=== PATIENT | male | born 1960 | race Caucasian/White ===

== ENCOUNTER 2023-05-07 06:52 | Emergency (ER) | payer SELFPAY ==
[2023-05-07 07:05] VITALS: BP 119/77; PULSE 72; RESP 18; TEMP 36.1; O2SAT 97; BMI 27.4
[2023-05-07] MEDS: Lidocaine HCl 1 % MPF 5 ML VIAL INFILTRATI (09:44)
--- NOTE | 2023-05-07 10:27 | ED_ITS ---
HPI - Skin/Abscess/Foreign Bdy General Chief complaint: Skin/Abscess/Foreign Body Stated complaint: Abscess on the back of neck Time Seen by Provider: 05/07/23 09:17 Source: patient and RN notes reviewed Mode of arrival: ambulatory Limitations: no limitations History of Present Illness HPI narrative: This is a 62-year-old male, with a history of hypertension, who presents to the emergency department with complaints of swelling on the back of his neck for the last 3 days. Patient reports that it was small in nature and slightly painful. He attempted to drain it without any discharge expressed. He has a hi story of ingrown hairs in believes that this is what it is. Patient denies any fevers or chills. Denies taking any medications to treat his symptoms. He is not from this area, and visiting family. No other complaints or concerns at this time. MD complaint: abscess/boil Location: neck Severity: moderate Pain Consistency: constant Relieving factors: none Exacerbating factors: none Context: none Associated symptoms: denies other symptoms Treatments prior to arrival: attempted to drain pus at home Related Data Previous Rx's Medication Instructions Recorded doxycycline hyclate 100 mg capsule 100 mg PO BID #14 caps 05/07/23 Allergies Allergy/AdvReac Type Severity Reaction Status Date / Time codeine [CODEINE] Allergy Unknown ITCHINESS Verified 05/07/23 07:04 Review of Systems Review of Systems: Constitutional: No Weight loss, No Fever, No Chills ENT/Mouth: No Ear Pain, No Nasal Congestion, No Sinus Pain, No Hoarseness, No sore throat, No Rhinorrhea, No Swallowing Difficulty Cardiovascular: No Chest Pain, No SOB Respiratory: No Cough, No Sputum, No Wheezing Gastrointestinal: No Nausea, No Vomiting, No Diarrhea, No Constipation, No Abdominal pain Genitourinary: No Dysuria, No Urinary Frequency, No Hematuria, No Urinary Incontinence/retention, No Urgency, No Flank Pain Musculoskeletal: No joint pain, No Myalgias, No Joint Swelling Skin: No Skin Lesions, No rash Neuro: No Weakness, No Numbness, No Paresthesias PMFSH Social History Social History Advance Directives: No Physical Exam Vital Signs: Vital Signs: Last Vital Signs Temp 96.9 F 05/07/23 07:05 Pulse 72 05/07/23 07:05 Resp 18 05/07/23 07:05 BP 119/77 05/07/23 07:05 Pulse Ox 97 05/07/23 07:05 O2 Del Method Room Air 05/07/23 07:05 BMI result Body Mass Index 27.4 General: Awake, alert, and oriented X3. No acute distress. HEENT: Normal inspection CVS: Normal heart rate and rhythm. Pulses normal. Respiratory: No respiratory distress Skin: there is a 2 x 2 cm indurated, erythematous area of skin on the right posterior neck, with center area of fluctuance and white ulceration. Mild surrounding erythema and warmth Extremities: normal inspection Neuro: Oriented X 3. No motor deficit. No sensory deficit. Medications Administered Discontinued Medications Generic Name Dose Route Start Last Admin Trade Name Freq PRN Reason Stop Dose Admin Lidocaine HCl 5 ml 05/07/23 09:34 05/07/23 09:44 Lidocaine Hcl 1 % Mpf 5 Ml Vial INFILTRATI 05/07/23 09:35 5 ml ONCE ONE Administration Medical Decision Making Medical Decision Making MDM Narrative: 62-year-old male presenting today for evaluation left-sided neck abscess/ cyst that has been present for 3 days. Attempted drainage at home without any drainage expressed. No fevers or chills. On examination patient's vital signs are within normal limits. Patient unsure when his last tetanus vaccine was, will update today. I&D performed with minimal thick purulence drainage expressed. Patient's wound dressed with bacitracin and bandage, will discharge on doxycycline, advised to have complete the entire course. Also advised to apply warm compresses 4 to 5 times a day. Declines wanting prescription for Tylenol or ibuprofen. Given return precautions. Patient understands and agrees with plan. Differential Diagnosis Differential Diagnoses: The differential diagnosis associated with the presentation includes Abscess, cellulitis, cyst, carbuncle Procedures Abscess I/D Site: neck Side (if applicable): right Local Anesthetic: lidocaine 1% Amount of anesthesia used (mL): 3 Technique: incised with blade Sent for culture/gram staining?: No Irrigation: No Packing used?: none Discharge Plan Discharge Clinical Impression: Abscess, Cellulitis Patient Disposition: Home, Self-Care Instructions: Abscess (ED), Abscess Incision and Drainage (DC) Additional Instructions: Please take prescribed antibiotic as directed. Finish the entire course even if your feeling better. Apply warm compress to the area 4 to 5 times a day. Take ibuprofen or Tylenol as needed for pain. please follow-up with a physician which returned back from home. If any new or worsening symptoms occur please return for re-evaluation. Prescriptions: New doxycycline hyclate 100 mg capsule 100 mg PO BID Qty: 14 0RF
[2023-05-07] MEDS: Bacitracin Oint 0.9 GM PACKET 1 APPL TOPICAL (10:59)
[2023-05-07] MEDS: Diphth,Pertus(ACell),Tet Adult 0.5 ML SYRINGE IM (10:59)
== END 2023-05-07 11:06 | disposition home or self-care (01) ==
PROVIDERS: Emergency Provider Internal Medicine
DX: L03.221 Cellulitis of neck (principal); L02.11 Cutaneous abscess of neck
CPT/HCPCS: 10060; 90471; 90715; 99282; 99284

== ENCOUNTER 2023-10-24 09:10 | Outpatient (AMB) | payer MEDICARE, MEDICAID, SELFPAY ==
[2023-10-24 09:13] VITALS: BP 128/78; PULSE 87; TEMP 36.7; O2SAT 98; BMI 27.4
--- NOTE | 2023-10-24 09:13 | AM.OFFWIN_ITS ---
Intake Vital Signs 10/24/23 09:13 Height 5 ft 7 in Weight 175 lb BMI 27.4 BP 128/78 Blood Pressure Location Lt brachial Position Sitting Pulse 87 Pulse Source Pulse Oximeter Temp 98.0 F Temp Source Temporal Artery Scan Pulse Oximetry (%) 98 Intake Visit Reasons: [employer] Cough, Wheezing Intake Note: pt is here for c/o cough, wheezing, 1x month Patient Tobacco Use Status: Never used Tobacco Allergies codeine [CODEINE] Allergy (Unknown, Verified 10/24/23 09:23) ITCHINESS Medication List - Last Reconciled 10/24/23 by David Welsh MD lisinopril 25 mg PO DAILY HPI [employer] Cough, Wheezing HPI Details Patient presents for a sick visit. Reporting symptoms of sinus congestion, sore throat and difficulty swallowing. Low-grade fever. No family member is sick. No recent travel. Patient reports symptoms of malaise and fatigue. [facility] Patient Tobacco Use Status: Never used Tobacco Physical Exam Vital Signs: Last Vital Signs Temp 98.0 F 10/24/23 09:13 Pulse 87 10/24/23 09:13 BP 128/78 10/24/23 09:13 Pulse Ox 98 10/24/23 09:13 BMI result Body Mass Index 27.4 Const General: cooperative and healthy appearing Nutritional Appearance: well nourished Orientation/consciousness: patient oriented x3 Limitations: no limitations HEENT Head: Yes normal to inspection Eyes General: appearance normal, both eyes and all related structures Neck Neck: Yes normal visual inspection Chest Chest palpation & inspection: normal palpation of entire chest wall Resp Effort & Inspection: normal respiratory effort Neuro General: patient oriented x3 Assessment & Plan Assessment & Plan (1) Upper respiratory tract infection: Code(s): J06.9 - Acute upper respiratory infection, unspecified Plan: Antibiotics ordered. Increase fluid intake. Tylenol for aches and pains. If symptoms worsen, follow-up here for a recheck. Coding Level of Care Code Est Pt Level 3 (46592) Diagnoses Upper respiratory tract infection J06.9
== END 2023-10-24 09:56 | disposition home or self-care (01) ==
PROVIDERS: Visit Provider Internal Medicine
DX: J06.9 Acute upper respiratory infection, unspecified (principal)
CPT/HCPCS: 99213

== ENCOUNTER 2023-10-31 07:58 | Outpatient (AMB) | payer MEDICARE, MEDICAID, SELFPAY ==
[2023-10-31 08:06] VITALS: BP 128/80; PULSE 83; TEMP 36.4; O2SAT 98; BMI 27.1
--- NOTE | 2023-10-31 08:06 | MHC.OFFWIV ---
Intake Vital Signs 10/31/23 08:06 Height 5 ft 7 in Weight 173 lb BMI 27.1 BP 128/80 Blood Pressure Location Rt brachial Position Sitting Pulse 83 Pulse Source Pulse Oximeter Temp 97.6 F Temp Source Oral Pulse Oximetry (%) 98 Oxygen Delivery Method Room Air Intake Visit Reasons: EP, constipation Intake Note: Pt is here today c/o constipation x2 days now lower back pain Patient Tobacco Use Status: Never used Tobacco Allergies codeine [CODEINE] Allergy (Unknown, Verified 10/31/23 08:07) ITCHINESS Do you need a note to return to daycare/school/sports/work: No HPI HPI Comments History of Present Illness Details This is a 63-year-old male who presents to the office today for sick visit. Patient complaining of Bilateral low back pain x3 days. Patient denies any specific trauma or injury to the area. He states he was treated for acute bronchitis approximately 1 week ago. He states that he developed constipation after he finished the antibiotics. He then started to develop bilateral low back pain. He states he started taking some urvo-lvo-omxsmji laxative any has been having normal bowel movements with the back pain has persisted. He denies any red flag symptoms such as fever/chills, bowel/bladder incontinence/retention, saddle anesthesias, or numbness/ weakness / paresthesias of his extremities. He denies any urinary symptoms such as urinary frequency / urgency or hematuria. PFS Social History Patient Tobacco Use Status: Never used Tobacco Review of Systems Const All systems reviewed & are unremarkable except as noted in HPI and below Reports no additional complaints Eyes Reports no additional complaints ENT Reports no additional complaints Card Reports no additional complaints Resp Reports no additional complaints GI Reports no additional complaints Reports no additional complaints Musc Reports no additional complaints Skin/Breast Reports system reviewed and no additional complaints, except as documented Neuro Reports no additional complaints Psych Reports no additional complaints Endo Reports no additional complaints John/Lymph Reports no additional complaints Aller/Immun Reports no additional complaints Physical Exam Vital Signs: BMI result Body Mass Index 27.1 Const Other: Vital signs reviewed. Constitutional: Non-toxic appearing. No acute distress. Well-developed and well-nourished. HEENT: Normocephalic and atraumatic. Skin: Warm and dry. No rashes or lesions noted. Neck: Full and painless range of motion. No cervical lymphadenopathy. Cardio: Regular rate. No lower extremity edema. No JVD. Pulmonary: No respiratory distress. No accessory muscle usage. Gastrointestinal: Soft, nontender, and nondistended in all 4 quadrants. Normoactive bowel sounds in all 4 quadrants. Genitourinary: No CVA tenderness. Musculoskeletal: Tenderness to palpation of bilateral lumbar paraspinal musculature with palpable muscle spasms. No midline or spinous process tenderness to palpation. Negative straight leg raise bilaterally. Neuro: Alert and oriented x4. Cranial nerves 2-12 grossly intact. No focal deficits appreciated. Psych: Normal mood and affect. Assessment & Plan Assessment & Plan (1) Lumbar paraspinal muscle spasm: Code(s): M62.830 - Muscle spasm of back Plan: This is a 63-year-old male presenting to the office complaining of bilateral low back pain x3 days. Patient has no red flag symptoms and no midline /spinous process tenderness to palpation of physical examination. He has mild tenderness to palpation and palpable muscle spasms of the bilateral paraspinal musculature. History and physical most consistent with a lumbar paraspinal muscle spasm. Patient has been sent home on p.o. cyclobenzaprine 10 mg 3 times daily as needed for muscle spasms. Patient was advised to proceed directly to the emergency room if he were to develop any of the red flag symptoms as listed above. Patient verbalizes understanding and he is in agreement with plan. Medications: New cyclobenzaprine 10 mg PO TID PRN 30 tabs 0RF muscle spasm Coding Level of Care Code Est Pt Level 3 (82965) Diagnoses Lumbar paraspinal muscle spasm M62.830
== END 2023-10-31 08:21 | disposition home or self-care (01) ==
PROVIDERS: Visit Provider Physician Assistant Medical
DX: M62.830 Muscle spasm of back (principal)
CPT/HCPCS: 99213

== ENCOUNTER 2023-12-08 09:48 | Outpatient (AMB) | payer MEDICARE, MEDICAID, SELFPAY ==
[2023-12-08 09:54] VITALS: BP 132/94; PULSE 81; O2SAT 92; BMI 27.6
--- NOTE | 2023-12-08 09:54 | MHC.PC.OV ---
Vital Signs 12/08/23 09:54 Height 5 ft 7 in Weight 176 lb 2 oz BMI 27.6 BP 132/94 H Blood Pressure Location Rt brachial Position Sitting Pulse 81 Pulse Source Pulse Oximeter Pulse Oximetry (%) 92 Oxygen Delivery Method Room Air Intake Visit Reasons: EST care/ heart spec referral Allergies pollen extracts Allergy (Intermediate, Verified 12/08/23 10:05) Itching codeine [CODEINE] Allergy (Unknown, Verified 12/08/23 10:05) ITCHINESS Medication List - Last Reconciled 12/08/23 by MEY Montano aspirin (Adult Low Dose Aspirin) 81 mg PO DAILY atorvastatin 80 mg PO DAILY lisinopril 25 mg PO DAILY magnesium 250 mg PO DAILY metoprolol tartrate 25 mg PO DAILY nitroglycerin 0.4 mg sublingual Q5M PRN omeprazole 20 mg PO DAILY Tobacco use date assessed: 12/08/23 Fall risk assessment: No Falls in past year Last assessed Fall Risk: 12/08/23 Dental Screening Dental Screen Date: 12/08/23 Did you have a dental visit in the last 12 months?: No Did you have a dental problem in the last 6 months where you did not have access to dental care?: No Was dental information given to patient?: No HPI HPI Comments History of Present Illness Details Patient is a 63-year-old male here to [facility] care. He recently moved to this area from [place]. He has a past medical history significant for hyperlipidemia, hypertension, myocardial infarction, GERD, pre diabetes, carpal tunnel, lower back pain and history of CABG. He is due for colonoscopy. He is due for his 2nd shingles vaccine. He will receive the influenza vaccine in office today. He has a primary complaint of frequent muscle spasms, which tend to occur at night. He states that since he started taking magnesium they have diminished in frequency and intensity, but have not subsided. Denies starting any new medication or any injuries to the area of spasm. Will refer to GI for colonoscopy. Will refer to Podiatry. Patient is making his own appointment for his eye exam. Will receive in office EKG. Received in office influenza vaccine. Patient will also get echocardiogram in referral to Cardiology due to significant cardiac history. [facility] Medical History (Updated 12/08/23 @ 11:12 by MEY Montano) Myocardial infarction Nonalcoholic fatty liver Diverticulosis Surgical History (Updated 12/08/23 @ 10:12 by MEY Montano) S/P CABG (coronary artery bypass graft) Family History Mother Diabetes Social History Housing: House Patient Tobacco Use Status: Never used Tobacco e-Cigarette/Vaping Use: Never Used service: No Current occupational status: employed Current occupational exposures/hazards: No Cognitive needs: No Hearing needs: No Vision needs: No Questionnaire PHQ-9 Over the last 2 weeks, how often have you been bothered by any of the following problems? 1. Little interest or pleasure in doing things: several days 2. Feeling down, depressed, or hopeless: not at all 3. Trouble falling or staying asleep, or sleeping too much: several days 4. Feeling tired or having little energy: several days 5. Poor appetite or overeating: several days 6. Feeling bad about yourself - or that you are a failure or have let yourself or your family down: not at all 7. Trouble concentrating on things, such as reading the newspaper or watching television: several days 8. Moving or speaking so slowly that other people could have noticed. Or the opposite - being so fidgety or restless that you have been moving around a lot more than usual: several days 9. Thoughts that you would be better off or of hurting yourself in some way: not at all Total score: 6 Depression Screening Interpretation: Negative Depression Screening Done: Yes 21160 - PHQ-9 Billing: Yes Source: Developed by Drs. Satish Morales, Radha Jaquez, Bro Damian and colleagues, with an educational altaf from [employer]. Thrive Questionnaire Date Thrive assessed: 12/08/23 I am a: Patient Within the past 12 months, did the food you bought not last and you didn't have the money to get more?: Sometimes True Within the past 12 months, did you worry whether your food would run out before you got money to buy more?: Sometimes True Do you have trouble paying for medicines?: No Do you have trouble getting transportation to medical appointments?: No Do you have trouble paying your heating and electricity bill?: Yes Do you have trouble taking care of your child, family member or friend?: No Do you have trouble with day-to-day activities such as bathing, preparing meals, shopping, managing finances, etc.?: No Are you currently unemployed and looking for a job?: No Are you interested in more education?: No Please select the resources that you would like help with: None Currently or been in a relationship where the following occur: no concerns reported AUDIT C Alcohol Use Questionnaire (AUDIT-C) 1. How often do you have a drink containing alcohol?: Never 3. How often do you have six or more drinks on one occasion?: Never Total Score: 0 Score Reviewed/Action Taken: Yes IVONNE-7 AMB Questionnaire IVONNE-7 Date IVONNE - 7 assessed: 12/08/23 Feeling nervous, anxious, or on edge: 1 = Several days Not being able to stop or control worryin = Several days Worrying too much about different things: 0 = Not at all Trouble relaxin = Not at all Being so restless that it is hard to sit still: 0 = Not at all Becoming easily annoyed or irritable: 0 = Not at all Feeling afraid as if something awful might happen: 0 = Not at all Total IVONNE-7 score (0-4 normal; 5-9 mild; 10-14 moderate; 15-21 severe): 2 Source: Developed by Drs. Satish Morales, Radha Jaquez, Bro Damian and colleagues, with an educational altaf from [employer]. IVONNE-7 Assessment Billing IVONNE-7 Assessment Tool: IVONNE-7 Assessment 10655 Review of Systems Const Details: Constitutional : No Weight loss, No Fever, No Chills, No Fatigue, No Malaise ENT/Mouth : No sore throat, No Rhinorrhea. Admits diminished hearing bilaterally. Eyes: No Eye Pain, No Swelling, No Redness Cardiovascular : No Chest Pain, No SOB, No Dyspnea on Exertion, No Orthopnea, No Edema, No Palpitations Respiratory : No Cough, No Sputum, Admits slight Wheezing Gastrointestinal : No Nausea, No Vomiting, No Diarrhea, No Constipation, No abdominal Pain, No Hematochezia, No Melena Genitourinary : No Dysuria,Admits increased nocturnal Urinary Frequency, No Hematuria, Musculoskeletal : Admits cervical pain and right hip pain. Skin : No Skin Lesions, No rash Neuro : No Weakness, Admits carpel tunnel symptoms at night on left hand, No Dizziness, No Headache Psych : No Anxiety/Panic, No Depression Heme/Lymph: No Bruising, No Bleeding,No Lymphadenopathy Endocrine : No Polyuria, No Polydipsia All other systems reviewed and are negative Physical exam (Primary Care) Vital Signs: Last Vital Signs Pulse 81 12/08/23 09:54 BP 132/94 H 12/08/23 09:54 Pulse Ox 92 12/08/23 09:54 Oxygen Delivery Method Room Air 12/08/23 09:54 Care Plan Goal for BP management: Patient will take blood pressure measurements at home Next steps: Will evaluate blood pressure readings at next appointment in 3 months. Patient states he has white coat syndrome is a his readings tend to be higher in office than they are home BMI result Body Mass Index 27.6 Tobacco/Smoking Status: Tobacco use Status Tobacco use date assessed 12/08/23 12/08/23 09:57 Patient Tobacco Use Status Never used Tobacco 12/08/23 09:57 e-Cigarette/Vaping Use Never Used 12/08/23 09:57 Depression Screening Interpretation: Negative Currently or been in a relationship where the following occur: no concerns reported Const Other: Appearance: Alert.? Oriented X3.? No acute distress.? Head: Normocephalic, atraumatic, no step-offs or deformities Eyes: Pupils equal, round and reactive to light.?Red reflex present. ENT: Pharynx normal.?TM intact, pearly jo. Neck: Normal inspection.? Neck supple.? CVS: Normal heart rate and rhythm.? Pulses normal.? Respiratory: Slight wheeze bilateral upper lobes. ? Abdomen: Soft and nontender.? Skin: Skin warm and dry.? Normal skin color.? Normal skin turgor.? Extremities: No lower extremity edema.? No calf ttp. 5/5 strength to bilateral upper and lower extremities Back: No midline tenderness, no C-spine tenderness, full range of motion, no CVA tenderness bilaterally Neuro: Oriented X 3.? No motor deficit. Positive tineal sign. CN 2-12 intact Office Procedures EKG 76531-[id number], Complete Flu Questionnaire Does the patient have a severe egg allergy?: No Does the patient have severe life threatening allergies?: No Does the patient have a fever or illness today?: No Has the patient ever had Guillain-Saline Syndrome?: No Has the patient ever had any past reaction to a flu shot?: No Immunizations flu vacc [id number] 6mos up(PF) 60 mcg(15 mcgx4)/0.5 mL IM syringe Performing Provider: MEY Montano Performing Location: [facility] Administered by: BRIAN Burgess on 12/08/23 10:52 Dose Route Admin Location Dispensed Lot Number Expiration Date NDC Qm Consultant 0.5 mL IM Left Deltoid 0.5 mL [id number] 05/30/24 [id number] [employer] VIS Given Date VIS Provided VIS Publication Date 12/08/23 Single Vaccine 21 Eligibility Eligibility Date Funding Source Not VF Eligible 12/08/23 Private Results Reviewed Results Reviewed: Will call patient with results Assessment and Plan Assessment & Plan (1) Cervical pain (neck): Comment: Will obtain x-ray. Patient has history of cervical spine pain. Will intervene based on results. Code(s): M54.2 - Cervicalgia (2) Muscle spasm: Comment: Patient is currently taking 250 mg magnesium. Will draw labs. Will give cyclobenzaprine 5 mg to be taken p.r.n at bedtime. Code(s): M62.838 - Other muscle spasm (3) Right hip pain: Comment: Patient has chronic right hip pain that has progressed over the past 2 months. No history of imaging. Will obtain x-ray. Code(s): M25.551 - Pain in right hip (4) Wheeze: Comment: Patient has slight wheeze, was diagnosed with bronchitis x1 month prior will prescribe Xopenex due to heart health history. Code(s): R06.2 - Wheezing Plan: Take your medications as prescribed. If you were prescribed antibiotics today, it is important that you take your medication to their entirety, do not skip any doses, do not finish them early. Follow-up with your primary care provider this week. Return to the emergency department with new or worsening symptoms. Such as fevers, chills, chest pain, shortness of breath, nausea, vomiting, dizziness, headache, vision changes, lethargy In case of emergency call 911 (5) Hearing difficulty of both ears: Comment: Will refer to speech and hearing. Code(s): H91.93 - Unspecified hearing loss, bilateral Plan Follow-up in 3 months. Orders: Orders PSA,Total (Free>4and<10) Today Z12.5 - Encounter for screening for malignant neoplasm of prostate UA CC w/rflx Micro + Cult Today E86.0 - Dehydration TSH reflex Free T4 Today E03.9 - Hypothyroidism, unspecified XR hip RT min 2V Today M25.551 - Pain in right hip XR lumbar spine 2-3V Today M54.50 - Low back pain, unspecified Complete Blood Count Auto Diff Today Z13.0 - Encounter for screening for diseases of the blood and blood-forming organs and certain disorders involving the immune mechanism Comprehensive Met. Panel Today Z91.89 - Other specified personal risk factors, not elsewhere classified Lipid Panel Today E78.5 - Hyperlipidemia, unspecified Magnesium Today M62.838 - Other muscle spasm Vitamin D 25-OH (D2 and D3) Today Z13.21 - Encounter for screening for nutritional disorder AMB EKG-In Office Today I25.2 - Old myocardial infarction Influenza [id number] Immunization Today Z23 - Encounter for immunization CA echo transthoracic complete Today I25.2 - Old myocardial infarction Referrals Podiatry Referral R73.03 - Prediabetes Speech and Hearing Referral Z71.89 - Other specified counseling Cardiology Referral I25.2 - Old myocardial infarction Gastroenterology Referral Z12.11 - Encounter for screening for malignant neoplasm of colon Medications: New levalbuterol tartrate 45 mcg/actuation (Xopenex HFA) 2 puffs inhalation Q4-6H PRN 15 grams 0RF shortness of breath cyclobenzaprine 5 mg PO BEDTIME PRN 20 tabs 0RF muscle spasm Coding Level of Care Code Est Pt Level 3 (18050) Diagnoses Cervical pain (neck) M54.2 Muscle spasm M62.838 Right hip pain M25.551 Wheeze R06.2 Hearing difficulty of both ears H91.93 CPT Codes EKG - CPT: 67645-[id number], Complete ([id number]) Additional Codes IVONNE-7 Assessment Billing - IVONNE-7 Assessment Tool: IVONNE-7 Assessment 41304 ([id number]) Time Spent (min) 45
== END 2023-12-08 11:20 | disposition home or self-care (01) ==
PROVIDERS: Visit Provider Nurse Practitioner Primary Care
DX: M54.2 Cervicalgia (principal); M62.838 Other muscle spasm; M25.551 Pain in right hip; R06.2 Wheezing; H91.93 Unspecified hearing loss, bilateral; Z23 Encounter for immunization
CPT/HCPCS: 90471; 90686; 93000; 99215

== ENCOUNTER 2023-12-08 10:57 | Outpatient (REF) | payer MEDICARE, MEDICAID, SELFPAY ==
--- NOTE | ~2023-12-08 | XR_ITS ---
EXAMINATION: XR CERVICAL SPINE XR LUMBAR SPINE XR HIP, RIGHT CLINICAL INFORMATION: Low back pain, right hip pain, neck pain. COMPARISON: CT cervical spine of 02/19/2019. Radiographs lumbar spine and right hip of 12/31/2012 TECHNIQUE: 3 views of the cervical spine. 2 views right hip. 3 views of the lumbar spine. FINDINGS: CERVICAL SPINE: Advanced degenerative changes with loss of disc space height and hypertrophic change at C6-C7 and C7-T1. Redemonstration of moderate loss of height of the C6 and C7 vertebral bodies. LUMBAR SPINE: Facet arthritis in the lower lumbar spine. Mild degenerative changes on limited views of the bilateral hips. Advanced atherosclerotic aortoiliac calcifications. Mild multilevel lumbar spondylosis. Grade 1 anterolisthesis of L5 on S1. RIGHT HIP: Mild degenerative changes in the right hip with joint space narrowing and hypertrophic change. XR/XR cervical spine 3V IMPRESSION: 1. Advanced degenerative disc disease at C6-C7 and C7-T1. 2. Facet arthritis in the lower lumbar spine. 3. Mild multilevel lumbar spondylosis. 4. Grade 1 anterolisthesis of L5 on S1. 5. Mild degenerative changes in the right hip.
--- NOTE | ~2023-12-08 | XR_ITS ---
EXAMINATION: XR CERVICAL SPINE XR LUMBAR SPINE XR HIP, RIGHT CLINICAL INFORMATION: Low back pain, right hip pain, neck pain. COMPARISON: CT cervical spine of 02/19/2019. Radiographs lumbar spine and right hip of 12/31/2012 TECHNIQUE: 3 views of the cervical spine. 2 views right hip. 3 views of the lumbar spine. FINDINGS: CERVICAL SPINE: Advanced degenerative changes with loss of disc space height and hypertrophic change at C6-C7 and C7-T1. Redemonstration of moderate loss of height of the C6 and C7 vertebral bodies. LUMBAR SPINE: Facet arthritis in the lower lumbar spine. Mild degenerative changes on limited views of the bilateral hips. Advanced atherosclerotic aortoiliac calcifications. Mild multilevel lumbar spondylosis. Grade 1 anterolisthesis of L5 on S1. RIGHT HIP: Mild degenerative changes in the right hip with joint space narrowing and hypertrophic change. XR/XR hip RT min 2V IMPRESSION: 1. Advanced degenerative disc disease at C6-C7 and C7-T1. 2. Facet arthritis in the lower lumbar spine. 3. Mild multilevel lumbar spondylosis. 4. Grade 1 anterolisthesis of L5 on S1. 5. Mild degenerative changes in the right hip.
--- NOTE | ~2023-12-08 | XR_ITS ---
EXAMINATION: XR CERVICAL SPINE XR LUMBAR SPINE XR HIP, RIGHT CLINICAL INFORMATION: Low back pain, right hip pain, neck pain. COMPARISON: CT cervical spine of 02/19/2019. Radiographs lumbar spine and right hip of 12/31/2012 TECHNIQUE: 3 views of the cervical spine. 2 views right hip. 3 views of the lumbar spine. FINDINGS: CERVICAL SPINE: Advanced degenerative changes with loss of disc space height and hypertrophic change at C6-C7 and C7-T1. Redemonstration of moderate loss of height of the C6 and C7 vertebral bodies. LUMBAR SPINE: Facet arthritis in the lower lumbar spine. Mild degenerative changes on limited views of the bilateral hips. Advanced atherosclerotic aortoiliac calcifications. Mild multilevel lumbar spondylosis. Grade 1 anterolisthesis of L5 on S1. RIGHT HIP: Mild degenerative changes in the right hip with joint space narrowing and hypertrophic change. XR/XR lumbar spine 2-3V IMPRESSION: 1. Advanced degenerative disc disease at C6-C7 and C7-T1. 2. Facet arthritis in the lower lumbar spine. 3. Mild multilevel lumbar spondylosis. 4. Grade 1 anterolisthesis of L5 on S1. 5. Mild degenerative changes in the right hip.
[2023-12-08 14:43] LABS: Alanine Aminotransferase 22 U/L (0-40); Albumin Level 4.5 g/dL (3.5-5.0); Alkaline Phosphatase 66 U/L (39-117); Anion Gap 12 (12-20); Aspartate Amino Transferase 18 U/L (5-37); Bilirubin Total 0.8 mg/dL (0.0-1.0); Blood Urea Nitrogen 15 mg/dL (9-16); Calcium 9.7 mg/dL (8.4-10.2); Carbon Dioxide 25 mmol/L (22-29); Chloride 105 mmol/L (96-108); Cholesterol 153 mg/dL (<200); Estimated Glomerular Filt Rate > 60; Glucose Random 110 mg/dL (60-115); HDL Cholesterol 42 mg/dL (>40); LDL Cholesterol Calculated 82 mg/dL (<100); Sodium 138 mmol/L (135-145); Total Protein 7.4 g/dL (6.5-8.0); Triglycerides 147 mg/dL (<150)
[2023-12-08 15:12] LABS: TSH reflex Free T4 1.85 uIU/mL (0.32-4.0)
[2023-12-14 15:58] LABS: Vitamin D 25-OH, D2 11 ng/mL; Vitamin D 25-OH, D3 16 ng/mL; Vitamin D 25-OH, Total 27 ng/mL (30-100)
== END 2023-12-08 10:58 | disposition home or self-care (01) ==
LOC: HO.HMGCX 10:57
PROVIDERS: PCP Nurse Practitioner Primary Care; Visit Provider Nurse Practitioner Primary Care
DX: M54.2 Cervicalgia (principal); M25.551 Pain in right hip; E78.5 Hyperlipidemia, unspecified; M62.838 Other muscle spasm; Z12.5 Encounter for screening for malignant neoplasm of prostate; E03.9 Hypothyroidism, unspecified; E86.0 Dehydration; Z13.21 Encounter for screening for nutritional disorder; M54.50 Low back pain, unspecified; Z91.89 Other specified personal risk factors, not elsewhere classified; Z13.0 Encounter for screening for diseases of the blood and blood-forming organs and certain disorders involving the immune mechanism
CPT/HCPCS: 36415; 72040; 72100; 73502; 80053; 80061; 81003; 82306; 83735; 84153; 84443; 85025

== ENCOUNTER → 2023-12-29 13:50 | Outpatient (REF) | payer MEDICARE, SELFPAY ==
--- NOTE | 2023-12-29 13:53 | CA_ITS ---
Transthoracic Echocardiogram Patient (Last, First, Middle): Satish Lamb W Gender: Male Date of : 1960 Age: 63 Procedure Date: 12/29/2023 Procedure Type: Transthoracic Echocardiogram Location: OP Height: 170.18 cm Weight: 79.38 kg BSA: 1.91 m2 Heart Rate: bpm BP: 119 / 78 mmHg Lead Manufacturing Technician: CHUY Referring MD: Sam MATHIAS Lamina Searcher: Wyatt Parker MD Symptoms: I25.2 - Old myocardial infarction Study Quality: Adequate with contrast ECG Rhythm: Sinus Conclusions: - 1. Normal LV ejection fraction 55-60% with mild LVH with underlying regional wall motion abnormality consistent with coronary artery disease 2. Normal cardiac valvular Doppler 3. Upper limits of normal ascending aortic size 4. No gross pericardial effusion Findings Left Ventricle Normal left ventricular size, thickness, and systolic function. The visually estimated ejection fraction is between 55-60%. Spectral Doppler is indicative of an impaired relaxation filling pattern. Wall Motion Rest Echo Findings The apex, apical inferior, mid inferior, and mid anteroseptal segments are hypokinetic. The basal inferior, apical septum, and mid inferoseptal segments are akinetic. All other scored wall segments showed normal motion. Right Ventricle Normal right ventricular cavity size and systolic function. Atria The left atrium is likely dilated. Interatrial shunt cannot be excluded. The right atrium is normal in size. Aortic Valve The aortic valve structure and function is likely normal. There is no aortic valve stenosis. There is no aortic valve regurgitation. Mitral Valve Normal mitral valve structure and function. There is trace mitral valve regurgitation. There is no mitral valve stenosis. Pulmonic Valve The pulmonic valve is likely normal. Tricuspid Valve Likely normal tricuspid valve structure and function. There is trace tricuspid valve regurgitation. Tricuspid regurgitation envelope is inadequate for calculation of right ventricular systolic pressure. Normal right atrial pressure. Great Vessels The pulmonary artery was not well visualized. Venous The inferior vena cava is normal in size and collapses greater than 50% with inspiration. Pericardium/Pleural There is no evidence of pericardial effusion. Prior Study Comparison No prior study available for comparison. delay in reporting due to technical issues Measurements 2D Linear Measurements IVSd: 1.26 0.6-0.9/0.6-1.0 cm LVIDd: 4.02 3.9-5.3/4.2-5.9 cm LVIDd Index: 2.10 2.4-3.2/2.2-3.1 cm/m2 LVIDs: 2.84 2.0-3.6 cm LVPWd: 1.08 0.7-1.1 cm LA Diam: 3.40 2.7-3.8/3.0-4.0 cm LAIDs Index: 1.78 1.5-2.3 cm/m2 LV Mass: 199.99 67-162/88-224 g LV Mass Index: 104.70 43-95/49-115 g/m2 LVOT Diam: 2.20 3.0+(-)1.3 cm 2D Systolic Function EF 4C: 57.90 >55% EF 2C: 57.70 >55% EF BiP: 57.80 >55% Mitral Valve MV Pk E: 0.92 MV PK A: 0.90 MV Decel Time: 161.00 E/A: 1.00 E'Lateral: 7.62 E'Medial: 8.92 E/E' Med: 10.30 E/E' Lat: 12.00 PHT: 47.00 MVA PHT: 4.68 Decel [place]: 5.71 Aortic Valve AoV Pk Mark: 1.23 AoV Mn Mark: 0.91 AoV VTI: 0.25 AoV Pk Grad: 6.00 Aov Mn Grad: 4.00 SHANAE Cont.VTI: 2.77 LVOT LVOT Pk Mark: 0.95 LVOT Mn Mark: 0.62 LVOT VTI: 0.18 LVOT Pk Grad: 4.00 LVOT Mn Grad: 2.00 LVOT Diam: 2.20 LVOT Area: 3.80 Diastolic Function MV Pk E: 0.92 MV Pk A: 0.90 E/A: 1.00 E'Medial: 8.92 E/E' Med: 10.30 E' Laterial: 7.62 E/E' Lat: 12.00 Right Ventricle TAPSE (mm): 19.40 TVS' Mark: 10.40 Tricuspid Valve RA Press: 8.00 Great Vessels Aorta Sinus of Valsalva: 3.56 2.0-3.[address] [place]: 3.03 1.7-3.4 cm Ao Asc: 3.50 2.1-3.4 cm Updated in Other Vendor System with Status of Final Wyatt Parker MD electronically signed on 01/01/2024 1:11:29 PM with status of Final
== END ==
LOC: HO.CARD 13:50
PROVIDERS: PCP Nurse Practitioner Primary Care; Visit Provider Nurse Practitioner Primary Care
DX: I25.2 Old myocardial infarction (principal)
CPT/HCPCS: 93306; Q9957

== ENCOUNTER → 2023-12-29 13:53 | Outpatient (BNV) | payer MEDICARE, MEDICAID, SELFPAY | PROVIDERS: PCP Nurse Practitioner Primary Care; Visit Provider Internal Medicine Cardiovascular Disease | DX: I25.2 Old myocardial infarction (principal) | CPT/HCPCS: 93306 ==

== ENCOUNTER 2024-01-20 18:38 | Outpatient (REF) | payer MEDICARE, MEDICAID, SELFPAY ==
--- NOTE | ~2024-01-20 | MR_ITS ---
EXAMINATION: MR CERVICAL SPINE WITHOUT CONTRAST MR LUMBAR SPINE WITHOUT CONTRAST CLINICAL INFORMATION: Low back pain COMPARISON: None TECHNIQUE: MRI of the cervical and lumbar spine was obtained using routine sequences without contrast. FINDINGS: CERVICAL SPINE: The craniocervical junction is intact. Nonspecific sclerosis within the odontoid process. Reversal of the lower cervical lordosis centered at C7-T1 where there is mild chronic height loss and anterior wedging of the C7 greater than T1 vertebral bodies. Slight anterolisthesis at C2-C3, C4-C5 and C5-C6. No suspicious osseous lesion. Multilevel disc desiccation with severe C7-T1 and moderate C6-C7 disc height loss. Type I greater than type II Modic endplate change at C7-T1 and mild type I Modic endplate change at C6-C7 and C2-C3. There are multilevel degenerative changes with level by level detail as follows: C2-C3: Paracentral disc protrusion, bilateral uncovertebral spurring, and bilateral facet arthrosis, more pronounced and severe on the right with associated joint effusion and degenerative marrow edema. No spinal canal or left neural foraminal stenosis, noting an aberrant vascular loop of the left V2 vertebral artery coursing within the left neural foramen. Moderate to severe right neural foraminal stenosis. C3-C4: Disc osteophyte complex with bilateral uncovertebral joint hypertrophy and advanced hypertrophic bilateral facet arthrosis. No spinal canal stenosis. Mild to moderate right without left neural foraminal stenosis. C4-C5: Right greater than left uncovertebral spurring and bilateral facet arthrosis, more pronounced and severe on the right. No spinal canal stenosis. Severe right without left neural foraminal stenosis. C5-C6: Posterior disc uncovering, bilateral uncovertebral joint hypertrophy and bilateral facet arthrosis, more pronounced and severe on the right. No spinal canal stenosis. Severe right and moderate to severe left neural foraminal stenosis. C6-C7: Disc osteophyte complex with bilateral uncovertebral joint hypertrophy and bilateral facet arthrosis, more pronounced and severe on the right. No spinal canal stenosis. Moderate to severe left and mild to moderate right neural foraminal stenosis. C7-T1: Disc osteophyte complex with superimposed central disc extrusion with both superior and inferior migration, bilateral uncovertebral joint hypertrophy and bilateral facet arthrosis. Mild spinal canal stenosis, severe left and moderate right neural foraminal stenosis. The cervical spinal cord is normal in signal and morphology. No epidural fluid collection, mass, or hematoma. No significant abnormalities of the paraspinal musculature. The flow voids of the major cervical vessels are maintained. Retropharyngeal course of the mid right cervical ICA. The visualized intracranial structures are normal. LUMBAR SPINE: Slight lower lumbar levocurvature with preserved sagittal alignment. Slight grade 1 anterolisthesis at L5-S1. Minimal chronic height loss and anterior wedging of the L1 vertebral body. No suspicious osseous lesion. A couple shallow endplate Schmorl's nodes are seen. Multilevel disc desiccation preserved disc height. Level by level detail as follows: L1-L2: No spinal canal or neural foraminal stenosis. L2-L3: Shallow annular disc bulge. No spinal canal stenosis. Minimal bilateral neural foraminal encroachment. L3-L4: Annular disc bulge and mild bilateral facet arthrosis. No spinal canal stenosis. Minimal bilateral neural foraminal encroachment. L4-L5: Annular disc bulge and moderate bilateral facet arthrosis. Annular disc bulge, moderate left and mild right facet arthrosis. No spinal canal stenosis. Mild left greater than right neural foraminal narrowing. L5-S1: Posterior disc uncovering/pseudodisc bulge and advanced bilateral facet arthrosis. No spinal canal stenosis. Mild to moderate bilateral neural foraminal stenosis. The conus medullaris terminates at the level of L1. The distal spinal cord is normal in appearance. No epidural fluid collection, hematoma, or mass. There is mild fatty infiltration of the paraspinal musculature. There is a 3.5 cm cystic lesion in the right lower hemiabdomen along the ventral margin of the right iliac vessels and anteromedial to the right psoas muscle with a thin rim of peripheral soft tissue, of uncertain etiology and may reflect a lymphangioma or lymphocele and can be correlated for history of prior surgery. Recommend further characterization with CT and potentially a contrast-enhanced MRI. The abdominal aorta is of normal contour and caliber. MR/MR cervical spine wo con IMPRESSION: 1. Cervical spondylosis without significant spinal canal stenosis at any level. A central disc extrusion at C7-T1 contributes to mild spinal canal stenosis. Multilevel severe neural foraminal stenosis. There is an aberrant vascular loop of the left V2 vertebral artery coursing within the left C2-C3 neural foramen. 2. Mild lumbar spondylosis without significant spinal canal stenosis or high-grade neural foraminal stenosis. At L5-S1, there is advanced bilateral facet arthrosis with grade 1 anterolisthesis and mild to moderate bilateral neural foraminal stenosis. 3. 3.5 cm cystic lesion in the right lower hemiabdomen along the ventral margin of the right iliac vessels and anteromedial to the right psoas muscle with a thin rim of peripheral soft tissue, of uncertain etiology. This may reflect a lymphangioma or lymphocele and can be correlated for history of prior surgery. Recommend further characterization with CT and potentially a contrast-enhanced MRI.
== END 2024-01-20 18:39 | disposition home or self-care (01) ==
LOC: HO.MRI 18:38
PROVIDERS: PCP Nurse Practitioner Primary Care; Visit Provider Nurse Practitioner Primary Care
DX: M54.50 Low back pain, unspecified (principal); M54.2 Cervicalgia
CPT/HCPCS: 72141; 72148

== ENCOUNTER 2024-01-23 09:31 | Outpatient (AMB) | payer MEDICARE, MEDICAID, SELFPAY ==
--- NOTE | 2024-01-23 09:31 | MHC.OFFWIV ---
Intake Vital Signs 01/23/24 09:32 Height 5 ft 7 in Weight 176 lb BMI 27.6 BP 126/90 H Blood Pressure Location Lt brachial Position Sitting Pulse 78 Pulse Source Pulse Oximeter Temp 97.6 F Temp Source Temporal Artery Scan Pulse Oximetry (%) 96 Oxygen Delivery Method Room Air Intake Visit Reasons: EP sinus infection/pain Intake Note: pt is here today for sinus infection pain started 2 weeks ago Patient Tobacco Use Status: Never used Tobacco Allergies pollen extracts Allergy (Intermediate, Verified 01/23/24 09:32) Itching codeine [CODEINE] Allergy (Unknown, Verified 01/23/24 09:32) ITCHINESS Do you need a note to return to daycare/school/sports/work: No HPI HPI Comments History of Present Illness Details 63 y/o male patient who presents to walk in clinic with c/o sinus pressure x 2 weeks. [facility] [place] Medical History (Updated 12/08/23 @ 11:12 by MEY Montano) Myocardial infarction Nonalcoholic fatty liver Diverticulosis Surgical History (Updated 12/08/23 @ 10:12 by MEY Montano) S/P CABG (coronary artery bypass graft) Family History Mother Diabetes Social History Housing: House Patient Tobacco Use Status: Never used Tobacco e-Cigarette/Vaping Use: Never Used service: No Current occupational status: employed Current occupational exposures/hazards: No Cognitive needs: No Hearing needs: No Vision needs: No Review of Systems Const All systems reviewed & are unremarkable except as noted in HPI and below Physical Exam Vital Signs: Last Vital Signs Temp 97.6 F 01/23/24 09:32 Pulse 78 01/23/24 09:32 BP 126/90 H 01/23/24 09:32 Pulse Ox 96 01/23/24 09:32 Oxygen Delivery Method Room Air 01/23/24 09:32 BMI result Body Mass Index 27.6 Const General: no acute distress HEENT Head: Yes normocephalic Ears: external ears normal General nose exam: Abnormal mucous membranes and turbinates present boggy and erythematous Face and sinus: Yes sinus tenderness Mouth: moist mucous membranes Throat: Yes posterior oropharynx normal and Yes uvula midline Resp Effort & Inspection: normal respiratory effort and able to speak in complete sentences Auscultation: clear to auscultation bilaterally Cardio Rate: regular rate Rhythm: regular rhythm Assessment & Plan Assessment & Plan (1) Acute rhinosinusitis: Code(s): J01.90 - Acute sinusitis, unspecified Plan: Rest - Warm fluids - Acetaminophen for pain relief Medications: New azithromycin 500 mg PO DAILY 3 days 3 tabs 0RF J01.90 - Acute sinusitis, unspecified Coding Level of Care Code Est Pt Level 3 (40153) Diagnoses Acute rhinosinusitis J01.90 Time Spent (min) 15
[2024-01-23 09:32] VITALS: BP 126/90; PULSE 78; TEMP 36.4; O2SAT 96; BMI 27.6
== END 2024-01-23 10:03 | disposition home or self-care (01) ==
PROVIDERS: PCP Nurse Practitioner Primary Care; Visit Provider Nurse Practitioner Family
DX: J01.90 Acute sinusitis, unspecified (principal)
CPT/HCPCS: 99213

== ENCOUNTER 2024-01-26 15:06 | Outpatient (AMB) | payer MEDICARE, MEDICAID, SELFPAY ==
[2024-01-26 15:17] VITALS: BP 103/69; PULSE 76; BMI 28.0
--- NOTE | 2024-01-26 15:17 | MHC.OFFVIS ---
Intake Vital Signs 01/26/24 15:17 Height 5 ft 7 in Weight 178 lb 9.191 oz BMI 28.0 BP 103/69 Blood Pressure Location Lt brachial Position Sitting Pulse 76 Intake Visit Reasons: Colonoscopy screening Intake Note: New patient presents in office today for colonoscopy screening. CC: Patient reports last colonoscopy was done at [facility] about 4- 5 years ago. Patient c/o on and off stomach pain, constipation, and acid reflux. He states he takes Omeprazole for GERD but it has not helped the last 2 days. Diorama Model Maker Required: No Accompanied by: Self / Same As Patient Allergies pollen extracts Allergy (Intermediate, Verified 01/26/24 15:22) Itching codeine [CODEINE] Allergy (Unknown, Verified 01/26/24 15:22) ITCHINESS HPI Colonoscopy screening HPI Details 63 year old male with past medical history of GERD, hyperlipidemia, hypertension, asthma, coronary artery bypass 4 years ago is here today for pre colonoscopy screening.? Patient was sent to us by his PCP.? Last colonoscopy was done over 5 years ago at [facility]. Patient was told to return in 3 years.? Patient denies any gastrointestinal symptoms in the past or at present.? However recently patient reports to have epigastric discomfort and dyspepsia. Recently was on antibiotics bronchitis and sinusitis. Patient has been on omeprazole for over 5 years. Denies any family history of gastrointestinal disease or cancer.? Denies history of difficulty with sedation or anesthesia in the past.? History of sleep apnea on CPAP.? Denies any history of cardiac, renal, pulmonary, or hepatic disease.?? No history of infectious? diseases like hepatitis A, B, C, HIV or tuberculosis.? Patient is on low-dose aspirin [facility] Medical History Myocardial infarction Nonalcoholic fatty liver Diverticulosis Surgical History S/P CABG (coronary artery bypass graft) Family History Mother Diabetes Social History Housing: House Patient Tobacco Use Status: Never used Tobacco e-Cigarette/Vaping Use: Never Used service: No Current occupational status: employed Current occupational exposures/hazards: No Cognitive needs: No Hearing needs: No Vision needs: No Review of Systems Const Denies weight gain and Denies weight loss ENT Reports no additional complaints, Denies dysphagia and Denies odynophagia Card Reports no additional complaints Resp Reports no additional complaints GI Denies abdominal pain, Denies belching, Denies melena, Denies bloating, Reports constipation, Denies dysphagia, Denies excessive flatus, Denies dyspepsia, Reports heartburn (Occasional), Denies diarrhea, Denies loose stools, Denies nausea, Denies odynophagia and Denies vomiting Reports no additional complaints Musc Reports no additional complaints Neuro Reports no additional complaints Psych Reports no additional complaints Endo Reports no additional complaints Physical Exam Vital Signs: Last Vital Signs Pulse 76 01/26/24 15:17 BP 103/69 01/26/24 15:17 BMI result Body Mass Index 28.0 Const General: healthy appearing, no acute distress and well developed Nutritional Appearance: well nourished Orientation/consciousness: patient oriented x3 Resp Effort & Inspection: normal respiratory effort, able to speak in complete sentences, no tracheal deviation and symmetric chest movement Auscultation: clear to auscultation bilaterally Cardio Rate: regular rate GI Inspection: Yes normal to inspection and No distended Palpation (GI): Soft to palpation, not firm, nontender and No hepatosplenomegaly present Auscultation: normal bowel sounds General: Yes no CVA tenderness Back/Spine/Pelvis Back: no CVA tenderness Skin General skin exam: elasticity normal, turgor normal and dry skin Neuro General: patient oriented x3 Psych Appearance: grossly normal Mental Status: mental status grossly normal Assessment & Plan Assessment & Plan (1) GERD (gastroesophageal reflux disease): Code(s): K21.9 - Gastro-esophageal reflux disease without esophagitis Qualifiers: Esophagitis presence: esophagitis presence not specified Qualified Code(s): K21.9 - Gastro-esophageal reflux disease without esophagitis (2) Screen for colon cancer: Code(s): Z12.11 - Encounter for screening for malignant neoplasm of colon Plan Patient denies any GI, cardiac or respiratory symptoms.? Denies any issues with anesthesia in the past.? Denies any history of sleep apnea.? No history infectious diseases in the past or present.? On low-dose aspirin, history of bypass 4 years ago. Has appointment with nutrition assistant in March. Will ask for risk stratification before sending him for procedure. Will book upper endoscopy as well. Patient has been experiencing epigastric discomfort and dyspepsia. Currently on omeprazole, has been on omeprazole for the last 5 years. History of upper endoscopy about 15 years ago. Recently was placed on antibiotic for bronchitis last month and few days ago for sinusitis.? No family or personal history of colon cancer.? Patient denies melena, hematochezia, unintentional weight loss or ribbon like stools.? Discussed at length the pre-procedure,? prep, diet & medications as well as what to expect prior, during and after the procedure.?? Stressed the importance of good bowel prep. ?Recommended the use of Vaseline or Calmoseptine OTC & baby wipes with bowel movements to promote comfort.? ?Patient verbalizes understanding and agrees to plan of care.? He was given the opportunity to ask questions and all questions answered.? We will see him after the procedure.? Medications: New bisacodyl (Dulcolax (bisacodyl)) 10 mg (2 x 5 mg) PO BEDTIME 180 tabs 4RF polyethylene glycol 3350 (Miralax) As directed by gastroenterology department at [facility] 238 grams PO ONCE 238 grams 0RF Z12.11 - Encounter for screening for malignant neoplasm of colon Coding Level of Care Code New Pt Level 3 (70319) Diagnoses Gastroesophageal reflux disease, unspecified whether esophagitis present K21.9 Esophagitis presence: esophagitis presence not specified Screen for colon cancer Z12.11 Time Spent (min) 40 Comment 30 minutes spent with patient and additional 10 minutes spent reviewing his records
== END 2024-01-26 16:08 | disposition home or self-care (01) ==
PROVIDERS: PCP Nurse Practitioner Primary Care; Visit Provider Nurse Practitioner Family
DX: K21.9 Gastro-esophageal reflux disease without esophagitis (principal); Z12.11 Encounter for screening for malignant neoplasm of colon
CPT/HCPCS: 99203

== ENCOUNTER → 2024-01-26 15:06 | Outpatient (BNVA) | payer MEDICARE, MEDICAID, SELFPAY | PROVIDERS: PCP Nurse Practitioner Primary Care; Visit Provider Nurse Practitioner Family | DX: Z12.11 Encounter for screening for malignant neoplasm of colon (principal); K21.9 Gastro-esophageal reflux disease without esophagitis | CPT/HCPCS: 99202 ==

== ENCOUNTER 2024-02-06 09:53 | Outpatient (AMB) | payer MEDICARE, MEDICAID, SELFPAY ==
--- NOTE | 2024-02-06 09:59 | HO.SPINEOV ---
Intake Intake Visit Reasons: Cervicalgia Intake Note: Mr. Lamb is here today c/o neck pain. Lan Support Specialist Required: No Allergies pollen extracts Allergy (Intermediate, Verified 01/26/24 15:22) Itching codeine [CODEINE] Allergy (Unknown, Verified 01/26/24 15:22) ITCHINESS Assessment & Plan Assessment & Plan (1) Cervical pain (neck): Comment: Will obtain x-ray. Patient has history of cervical spine pain. Will intervene based on results. Code(s): M54.2 - Cervicalgia Plan Dear Sam Thank you for referring Mr Lamb to our office today. He is a very nice 63-year-old gentleman who sustained a trauma in 2009 where he had 1500 lb of concrete fall on top of him. He had a numerous traumatic injuries at that time including compression fractures at C7-T1. He has had ongoing neck pain since that time and over the last 5 years or so it has been getting steadily worse. He underwent imaging showing severe disc collapse at C7-T1 and was sent today for referral. He has undergone physical therapy as well as 2 rounds of cortisone injections on his neck and neither of those things gave him any significant improvement. He takes Tylenol and Aleve as needed but they do not really seem to help. At this point the pain is a significant limits her in his quality of life. He will feel intense pain throughout the day for the better part of the day. He will also feel it when he is trying to sleep as well. He is getting very frustrated with the fact that he has been trying all these non surgical options for years and nothing seems to help, in fact that only getting worse. Does have a occasional radiculopathy down his left arm but it is really nothing that bothers him all that much. Does not describe any focal weakness or myelopathic symptoms. PMH: History of hypertension, history of coronary disease with a bypass surgery in 2019, when he was living in [place]. He tells me that 1 of the grafts failed but he has collaterals around it. He is followed by [facility] he reports. He recently had an echo that he told me went okay. He does occasionally get chest pain on the left side. History of hypertension, jaw surgery, GERD, rotator cuff surgery. Denies any strokes, pulmonary problems, kidney disease or bleeding disorders Social hx: He does not smoke, does not drink or use any recreational drugs Medications: Lisinopril, metoprolol, omeprazole, baby aspirin, Tylenol and NSAIDs as needed Allergies: Codeine gives him itching Physical exam: Awake alert oriented no acute distress, strength is full in bilateral upper extremities with normal reflexes. Imaging review: Cervical MRI done at [facility] in January 2024 shows what looks like healed compression fractures at C7-T1 with severe disc collapse, basically [id number] endplate contact here. There is some other milder degenerative changes throughout the cervical spine. I also reviewed a lumbar MRI for him because of some complaints of back pain, and I see what looks like a healed compression fracture at L5. There was some unusual under development of the right facet joint at L5-S1 which I am not sure if this is posttraumatic related or not, with what appears to be heavily overgrown facet to the left L5-S1 Impression: 63-year-old male presents for evaluation of chronic midline lower cervical neck pain in the setting of a trauma 20 years ago where he had a C7-T1 compression fracture that appears to now have caused significant disc collapse and I believe could be the source of his neck pain. The rest of the cervical spine really has just some milder degenerative disc disease. Because he is failed all the typical surgery conservative treatments and the patient is at the standpoint where his pain is significantly limiting his quality of life, usually Dr. Del Angel would offer patient like this anterior cervical fusion C7-T1. We did briefly discuss the procedure, risks, benefits, recovery etc.. I will review the patient's imaging and clinical scenario with Dr. Del Angel get back to the patient with a final plan. If he does agree that surgery is indicated, the patient would need a clearance from Cardiology. Thank you for allowing us to care for your patient. The total time spent with this visit with this patient was 45 minutes reviewing history, physical exam, cervical imaging review, and implementation of treatment plan or further diagnostic testing Can Del Angel MD,PhD [facility] Coding Level of Care Code New Pt Level 4 (22802) Diagnoses Cervical pain (neck) M54.2
== END 2024-02-06 10:25 | disposition home or self-care (01) ==
PROVIDERS: PCP Nurse Practitioner Primary Care; Referring Provider Nurse Practitioner Primary Care; Visit Provider Physician Assistant
DX: M54.2 Cervicalgia (principal)
CPT/HCPCS: 99204

== ENCOUNTER → 2024-02-06 09:53 | Outpatient (BNVA) | payer MEDICARE, MEDICAID, SELFPAY | PROVIDERS: PCP Nurse Practitioner Primary Care; Visit Provider Physician Assistant | DX: M54.2 Cervicalgia (principal) | CPT/HCPCS: 99202 ==

== ENCOUNTER 2024-03-03 12:55 | Outpatient (REF) | payer MEDICARE, OTHER, SELFPAY ==
[2024-03-03 13:59] LABS: Hematocrit 46.8 % (42.0-52.0); Mean Corpuscular HGB Conc 34.2 g/dl (31.0-36.0); Mean Corpuscular Hemoglobin 30.1 pg (27.0-33.0); Mean Platelet Volume 9.8 fL (9.4-12.4); Platelet Count 256 X10*3/uL (160-400); Red Blood Count 5.32 X10*6/uL (4.60-5.80); Red Cell Distribution Width 13.4 % (11.0-16.0); White Blood Count 9.2 X10*3/uL (4.8-10.8)
[2024-03-03 14:03] LABS: INTERNATIONAL NORM RATIO 0.9 (0.9-1.1); Prothrombin Time 11.5 SEC (11.1-13.3)
[2024-03-03 14:24] LABS: Anion Gap 11 (12-20); Blood Urea Nitrogen 14 mg/dL (9-16); Calcium 10.2 mg/dL (8.4-10.2); Carbon Dioxide 29 mmol/L (22-29); Chloride 106 mmol/L (96-108); Estimated Glomerular Filt Rate 60; Glucose Random 109 mg/dL (60-115); Potassium 4.5 mmol/L (3.3-5.1); Sodium 141 mmol/L (135-145)
== END 2024-03-03 12:56 | disposition home or self-care (01) ==
LOC: HO.LAB 12:55
PROVIDERS: PCP Nurse Practitioner Primary Care; Visit Provider Internal Medicine
DX: Z01.810 Encounter for preprocedural cardiovascular examination (principal); I25.10 Atherosclerotic heart disease of native coronary artery without angina pectoris; Z95.1 Presence of aortocoronary bypass graft; Z79.899 Other long term (current) drug therapy
CPT/HCPCS: 36415; 80048; 85027; 85610; 99202

== ENCOUNTER 2024-03-03 12:55 | Outpatient (AMB) | payer MEDICARE, MEDICAID, SELFPAY ==
[2024-03-03 12:59] VITALS: BP 120/76; PULSE 74; BMI 29.0
--- NOTE | 2024-03-03 12:59 | A.OFFVIS_ITS ---
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: No Allergies pollen extracts Allergy (Intermediate, Verified 01/26/24 15:22) Itching codeine [CODEINE] Allergy (Unknown, Verified 01/26/24 15:22) ITCHINESS Medication List - Last Reconciled 03/03/24 by Leonardo Agustin MD aspirin (Adult Low Dose Aspirin) 81 mg PO DAILY atorvastatin 80 mg PO DAILY azithromycin 500 mg PO DAILY 3 days bisacodyl (Dulcolax (bisacodyl)) 10 mg (2 x 5 mg) PO BEDTIME cholecalciferol (vitamin D3) 50 mcg PO DAILY cyclobenzaprine 5 mg PO BEDTIME PRN levalbuterol tartrate 45 mcg/actuation (Xopenex HFA) 2 puffs inhalation Q4-6H PRN lisinopril 25 mg PO DAILY magnesium 250 mg PO DAILY metoprolol succinate ER 25 mg PO DAILY nitroglycerin 0.4 mg sublingual Q5M PRN omeprazole 20 mg PO DAILY polyethylene glycol 3350 (Miralax) 238 grams PO ONCE HPI HPI Comments History of Present Illness Details Satish is here for consultation regarding coronary disease. Apparently, underwent coronary artery bypass surgery in [place] about 5 years ago. According to him, he has lived in numerous states including [place], [place], [place], [place], [place] over the last few years. Apparently has seen Cardiology in different places but he can not recall any information about that. 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 He states that over the last year or 2, he has been getting chest pains off and on. This can happen either at rest or during exertion. He is on numerous medications including appropriate medical regimen for vascular disease. Due to chronic neck pain, plan to go for surgery in the near future. Hence requesting preoperative evaluation. [facility], [facility] Medical History Atherosclerotic cardiovascular disease Myocardial infarction Nonalcoholic fatty liver Diverticulosis Surgical History (Updated 03/03/24 @ 13:12 by Leonardo Agustin MD) S/P CABG (coronary artery bypass graft) Family History Mother Diabetes Social History Housing: House Patient Tobacco Use Status: Never used Tobacco e-Cigarette/Vaping Use: Never Used service: No Current occupational status: employed Current occupational exposures/hazards: No Cognitive needs: No Hearing needs: No Vision needs: No Review of Systems Const Denies weakness Eyes Denies loss of vision ENT Denies dizziness Card Denies chest pain with activity, Denies syncope, Denies rapid heart rate, Denies pedal edema, Denies edema, Denies leg edema, Denies lightheadedness, Denies palpitations, Denies dyspnea, Denies dyspnea on exertion and Denies orthopnea Resp Denies cough, Denies dyspnea, Denies dyspnea on exertion and Denies wheezing GI Denies hematochezia and Denies change in stool character Denies hematuria, Denies dysuria and Denies urinary frequency Musc Denies abnormal gait, Denies muscle cramps, Denies muscle weakness, Denies numbness, Denies radiating pain into limb and Denies tingling Skin/Breast Denies nail changes and Denies rash Neuro Denies Abnormal speech present, Denies abnormal gait, Denies dizziness, Denies syncope, Denies loss of vision, Denies memory loss, Denies numbness, Denies tingling and Denies weakness Psych Denies depression and Denies memory loss Endo Denies palpitations Aller/Immun Denies wheezing Physical Exam Vital Signs: Last Vital Signs Pulse 74 03/03/24 12:59 BP 120/76 03/03/24 12:59 BMI result Body Mass Index 29.0 Const General: comfortable and no acute distress Orientation/consciousness: patient oriented x3 HEENT Other: Unremarkable Head: Yes normal to inspection Neck Neck: Yes normal visual inspection Chest Chest palpation & inspection: normal inspection of the chest Resp Auscultation: clear to auscultation bilaterally Cardio Palpation: normal PMI Heart sounds: S1 normal heart sound present, S2 normal heart sound present, no gallops, no murmurs and no rubs GI Palpation (GI): Soft to palpation Back/Spine/Pelvis Other: unremarkable Skin General skin exam: no rashes or lesions noted Neuro General: patient oriented x3 Speech: No Abnormal speech present Extrem General: Yes normal to inspection Psych Mental Status: mental status grossly normal Assessment & Plan Assessment & Plan (1) Status post aorto-coronary artery bypass graft: Code(s): Z95.1 - Presence of aortocoronary bypass graft (2) Atherosclerotic cardiovascular disease: Code(s): I25.10 - Atherosclerotic heart disease of [place] coronary artery without angina pectoris (3) Preoperative cardiovascular examination: Code(s): Z01.810 - Encounter for preprocedural cardiovascular examination Plan EKG from December shows sinus rhythm with left bundle-branch block pattern. No prior EKGs for comparison. Echocardiogram from December with LVEF of 55-60%. Oto, apical inferior, mid inferior, anteroseptal hypokinesis. Basal inferior, mid inferoseptal and apical septum were akinetic. Unfortunately, we do not have any prior EKGs or echocardiogram for comparison as patient not able to give information about prior cardiologiss. Considering his history of bypass surgery, chest pain over the last couple of years, above findings on EKG/echocardiogram, reasonable to perform diagnostic angiogram to assess graft patency. We discussed about this today and patient is very much in favor of the above. We will try to contact [place] for records bypass surgery. For medications, he seems to be on a reasonable regimen including aspirin, beta-blockers, high-dose statins. No changes with that for now. Follow-up after catheterization. Orders: Orders Complete Blood Count no Diff Today I25.10 - Atherosclerotic heart disease of [place] coronary artery without angina pectoris Prothrombin Time INR Today I25.10 - Atherosclerotic heart disease of [place] coronary artery without angina pectoris Cardiac Cath LT Diagnostic Today I25.10 - Atherosclerotic heart disease of [place] coronary artery without angina pectoris, Z95.1 - Presence of aortocoronary bypass graft Basic Metabolic Panel Today I25.10 - Atherosclerotic heart disease of [place] coronary artery without angina pectoris Coding Level of Care Code New Pt Level 4 (34069) Diagnoses Status post aorto-coronary artery bypass graft Z95.1 Atherosclerotic cardiovascular disease I25.10 Preoperative cardiovascular examination Z01.810
== END 2024-03-03 13:44 | disposition home or self-care (01) ==
PROVIDERS: PCP Nurse Practitioner Primary Care; Visit Provider Internal Medicine
DX: Z95.1 Presence of aortocoronary bypass graft (principal); I25.10 Atherosclerotic heart disease of native coronary artery without angina pectoris; Z01.810 Encounter for preprocedural cardiovascular examination
CPT/HCPCS: 99204

== ENCOUNTER 2024-03-10 10:51 | Outpatient (AMB) | payer MEDICARE, MEDICAID, SELFPAY ==
[2024-03-10 11:15] VITALS: BP 124/80; PULSE 61; O2SAT 99; BMI 27.8
--- NOTE | 2024-03-10 11:15 | A.OFFPC_ITS ---
Vital Signs 03/10/24 11:15 Height 5 ft 7 in Weight 177 lb 9 oz BMI 27.8 BP 124/80 Blood Pressure Location Rt brachial Position Sitting Pulse 61 Pulse Source Pulse Oximeter Pulse Oximetry (%) 99 Oxygen Delivery Method Room Air Intake Visit Reasons: 3 month fu Intake Note: Pt is here to follow up for lab results Allergies pollen extracts Allergy (Intermediate, Verified 03/10/24 11:43) Itching codeine [CODEINE] Allergy (Unknown, Verified 03/10/24 11:43) ITCHINESS Medication List - Last Reconciled 03/10/24 by MEY Montano aspirin (Adult Low Dose Aspirin) 81 mg PO DAILY atorvastatin 80 mg PO DAILY bisacodyl (Dulcolax (bisacodyl)) 10 mg (2 x 5 mg) PO BEDTIME cholecalciferol (vitamin D3) 50 mcg PO DAILY levalbuterol tartrate 45 mcg/actuation (Xopenex HFA) 2 puffs inhalation Q4-6H PRN lisinopril 25 mg PO DAILY magnesium 250 mg PO DAILY metoprolol succinate ER 25 mg PO DAILY nitroglycerin 0.4 mg sublingual Q5M PRN omeprazole 20 mg PO DAILY polyethylene glycol 3350 (Miralax) 238 grams PO ONCE Tobacco use date assessed: 03/10/24 Fall risk assessment: No Falls in past year Last assessed Fall Risk: 03/10/24 Dental Screening Dental Screen Date: 03/10/24 Did you have a dental visit in the last 12 months?: No Did you have a dental problem in the last 6 months where you did not have access to dental care?: No Was dental information given to patient?: No HPI HPI Comments History of Present Illness Details Patient is a 63-year-old male in today for labs follow-up. Patient has a past medical history significant for hyperlipidemia, GERD, arthrosclerotic heart disease, nonalcoholic fatty liver, chronic cervical neck pain. Patient has establish care with manager code, has scheduled cardiac catheterization to determine if patient is cleared for cervical neck procedure. Patient has chief complaint of nocturia that has gotten progressively worse over the past couple years. Patient states that he gets up at night 5-6 times in order to urinate, interrupts his ability to get deep sleep. PSA draw was within normal limits. Will refer patient to Urology. Patient also states that he has several skin tags and moles on his bilateral forearms. States some of them a new and some of them were old. Patient does have 1st degree family history of melanoma. [facility] Medical History Atherosclerotic cardiovascular disease Myocardial infarction Nonalcoholic fatty liver Diverticulosis Surgical History (Updated 03/03/24 @ 13:12 by Leonardo Agsutin MD) S/P CABG (coronary artery bypass graft) Family History (Updated 03/10/24 @ 11:51 by MEY Montano) Mother Diabetes Melanoma Social History Housing: House Patient Tobacco Use Status: Never used Tobacco e-Cigarette/Vaping Use: Never Used service: No Current occupational status: employed Current occupational exposures/hazards: No Cognitive needs: No Hearing needs: No Vision needs: No Questionnaire PHQ-9 Over the last 2 weeks, how often have you been bothered by any of the following problems? 64998 - PHQ-9 Billing: Patient declined-do not bill Source: Developed by Drs. Satish Morales, Bro Carrillo and colleagues, with an educational altaf from [employer]. Thrive Questionnaire Date Thrive assessed: 12/08/23 IVONNE-7 AMB Questionnaire IVONNE-7 Date IVONNE - 7 assessed: 12/08/23 Source: Developed by Drs. Satish Morales, Bro Carrillo and colleagues, with an educational altaf from [employer]. IVONNE-7 Assessment Billing IVONNE-7 Assessment Tool: pt declined-do not bill Review of Systems Const All systems reviewed & are unremarkable except as noted in HPI and below ENT Denies dizziness Card Denies chest pain and Denies dyspnea Resp Denies dyspnea Reports nocturia Skin/Breast Reports other (Newly developed mole) Neuro Denies dizziness Physical exam (Primary Care) Vital Signs: Last Vital Signs Pulse 61 03/10/24 11:15 BP 124/80 03/10/24 11:15 Pulse Ox 99 03/10/24 11:15 Oxygen Delivery Method Room Air 03/10/24 11:15 Care Plan Goal for BP management: Vital signs reviewed stable. BMI result Body Mass Index 27.8 Tobacco/Smoking Status: Tobacco use Status Tobacco use date assessed 03/10/24 03/10/24 11:20 Patient Tobacco Use Status Never used Tobacco 03/10/24 11:15 e-Cigarette/Vaping Use Never Used 03/10/24 11:15 Thrive Assessment: Date of Thrive Assessment Date Thrive assessed 12/08/23 03/10/24 11:15 Const General: cooperative and no acute distress Limitations: no limitations HENMT Head: Yes normal to inspection Resp Effort & Inspection: normal respiratory effort Auscultation: clear to auscultation bilaterally Cardio Rate: regular rate Rhythm: regular rhythm Heart sounds: S1 normal heart sound present and S2 normal heart sound present Skin Lesions: lesion noted (Scaly macule , slightly raise, abnormal borders on bilateral forearms. ) Results Reviewed Results Reviewed: Sodium 141 135-145 mmol/L Potassium 4.5 3.3-5.1 mmol/L CL 106 96-108 mmol/L CO2 29 22-29 mmol/L Gap 11 L 12-20 BUN 14 9-16 mg/dL Creat 1.22 0.5-1.4 mg/dL EGFR 60 NOTE: For -[place] individuals, multiply the result by 1.210. Chronic Kidney Disease: Estimated GFR < 60 mL/min/1.73m2 Severe Kidney Disease: Estimated GFR < 15 mL/min/1.73m2 Glucose, Random 109 60-115 mg/dL CA 10.2 8.4-10.2 mg/dL Assessment and Plan Assessment & Plan (1) Atypical nevi: Comment: Will refer patient to Dermatology. Code(s): D22.9 - Melanocytic nevi, unspecified (2) Nocturia: Comment: Will refer patient to Urology. Code(s): R35.1 - Nocturia Plan Patient has follow-up 1 month for preop clearance Coding Level of Care Code Est Pt Level 3 (20926) Diagnoses Atypical nevi D22.9 Nocturia R35.1 Time Spent (min) 26
== END 2024-03-10 11:55 | disposition home or self-care (01) ==
PROVIDERS: Visit Provider Nurse Practitioner Primary Care
DX: D22.9 Melanocytic nevi, unspecified (principal); R35.1 Nocturia
CPT/HCPCS: 99213

== ENCOUNTER → 2024-03-30 23:59 | Outpatient (BNV) | payer MEDICARE, MEDICAID, SELFPAY | PROVIDERS: PCP Nurse Practitioner Primary Care; Visit Provider Internal Medicine Cardiovascular Disease | DX: I20.89 Other forms of angina pectoris (principal) | CPT/HCPCS: 93458; 99152 ==

== ENCOUNTER 2024-04-05 13:32 | Outpatient (AMB) | payer MEDICARE, MEDICAID, SELFPAY ==
[2024-04-05 13:34] VITALS: BP 118/68; PULSE 77; O2SAT 98; BMI 27.7
--- NOTE | 2024-04-05 13:34 | A.OFFVIS_ITS ---
Vital Signs 04/05/24 13:34 Height 5 ft 7 in Weight 177 lb BMI 27.7 BP 118/68 Blood Pressure Location Lt brachial Position Sitting Pulse 77 Pulse Source Pulse Oximeter Pulse Oximetry (%) 98 Oxygen Delivery Method Room Air Intake Visit Reasons: 1 wk sp card cath/ clear for [place] /fusion Allergies pollen extracts Allergy (Intermediate, Verified 03/10/24 11:43) Itching codeine [CODEINE] Allergy (Unknown, Verified 03/10/24 11:43) ITCHINESS Medication List - Last Reconciled 04/05/24 by Leonardo Agustin MD aspirin (Adult Low Dose Aspirin) 81 mg PO DAILY atorvastatin 80 mg PO DAILY bisacodyl (Dulcolax (bisacodyl)) 10 mg (2 x 5 mg) PO BEDTIME cholecalciferol (vitamin D3) 50 mcg PO DAILY levalbuterol tartrate 45 mcg/actuation (Xopenex HFA) 2 puffs inhalation Q4-6H PRN lisinopril 20 mg PO DAILY magnesium 250 mg PO DAILY metoprolol succinate ER 25 mg PO DAILY nitroglycerin 0.4 mg sublingual Q5M PRN omeprazole 20 mg PO DAILY polyethylene glycol 3350 (Miralax) 238 grams PO ONCE HPI Comments Details: Satish returns for follow-up. Recently seen in consultation regarding preoperative stratification for neck surgery. To recall, patient apparently underwent coronary artery bypass surgery in [place] about 5 years ago. According to him, he has lived in numerous states including [place], [place], [place], [place], [place] over the last few years. Had seen Cardiology in different places but he can not recall any information about that. He has been getting chest pains off and on, sometimes with rest and sometimes with exertion. However, sounds very atypical as he states he gets pain for a couple of seconds just sitting in a chair. He has undergone a repeat catheterization to assess coronary anatomy and returns for follow-up. No new issues. Continues to have the neck pain. [facility] Medical History Atherosclerotic cardiovascular disease Myocardial infarction Nonalcoholic fatty liver Diverticulosis Surgical History S/P CABG (coronary artery bypass graft) Family History (Updated 03/10/24 @ 11:51 by MEY Montano) Mother Diabetes Melanoma Social History Housing: House Patient Tobacco Use Status: Never used Tobacco e-Cigarette/Vaping Use: Never Used service: No Current occupational status: employed Current occupational exposures/hazards: No Cognitive needs: No Hearing needs: No Vision needs: No Review of Systems Const Denies weakness ENT Denies dizziness Card Denies chest pain, Denies chest pain with activity, Denies syncope, Denies rapid heart rate, Denies pedal edema, Denies edema, Denies leg edema, Denies lightheadedness, Denies palpitations, Denies dyspnea, Denies dyspnea on exertion and Denies orthopnea Resp Denies cough, Denies dyspnea and Denies dyspnea on exertion GI Denies hematochezia and Denies change in stool character Musc Denies abnormal gait, Denies muscle cramps, Denies muscle weakness, Denies numbness, Denies radiating pain into limb and Denies tingling Neuro Denies abnormal gait, Denies dizziness, Denies syncope, Denies numbness, Denies tingling and Denies weakness Endo Denies palpitations Physical Exam Vital Signs: Last Vital Signs Pulse 77 04/05/24 13:34 BP 118/68 04/05/24 13:34 Pulse Ox 98 04/05/24 13:34 Oxygen Delivery Method Room Air 04/05/24 13:34 BMI result Body Mass Index 27.7 Const General: comfortable and no acute distress Orientation/consciousness: patient oriented x3 HEENT Other: Unremarkable Head: Yes normal to inspection Neck Neck: Yes normal visual inspection Chest Chest palpation & inspection: normal inspection of the chest Resp Auscultation: clear to auscultation bilaterally Cardio Palpation: normal PMI Heart sounds: S1 normal heart sound present, S2 normal heart sound present, no gallops, no murmurs and no rubs GI Palpation (GI): Soft to palpation Back/Spine/Pelvis Other: unremarkable Skin General skin exam: no rashes or lesions noted Neuro General: patient oriented x3 Extrem General: Yes normal to inspection Psych Mental Status: mental status grossly normal Assessment & Plan Assessment & Plan (1) Status post aorto-coronary artery bypass graft: Code(s): Z95.1 - Presence of aortocoronary bypass graft Category: Surgical (2) Atherosclerotic cardiovascular disease: Code(s): I25.10 - Atherosclerotic heart disease of [place] coronary artery without angina pectoris Category: Medical (3) Preoperative cardiovascular examination: Code(s): Z01.810 - Encounter for preprocedural cardiovascular examination Category: Medical Plan Cardiac studies reviewed. EKG from December shows sinus rhythm with left bundle-branch block pattern. No prior EKGs for comparison. Echocardiogram from December with LVEF of 55-60%. [place], apical inferior, mid inferior, anteroseptal hypokinesis. Basal inferior, mid inferoseptal and apical septum were akinetic. Unfortunately, we do not have any prior EKGs or echocardiogram for comparison as patient not able to give information about prior cardiologists. We proceeded with a diagnostic catheterization. Mid LAD has 90% stenosis with significant tortuosity. Otherwise, left main/circumflex normal and RCA has minimal irregularities. Recommended medical management. Per Interventional comments, intermediate to high risk for perioperative cardiovascular complications with neck surgery. We discussed about this in great detail. Perioperative complications including myocardial infarction discussed and he understands. He states that he may just choose not to have neck surgery. Discussed with who recommended medical management only as the vessel is very small in size. Continue aspirin, beta-blockers, high-dose statins. Will follow-up in 3 months. Coding Level of Care Code Est Pt Level 4 (19996) Diagnoses Status post aorto-coronary artery bypass graft Z95.1 Atherosclerotic cardiovascular disease I25.10 Preoperative cardiovascular examination Z01.810
== END 2024-04-05 13:58 | disposition home or self-care (01) ==
PROVIDERS: PCP Nurse Practitioner Primary Care; Visit Provider Internal Medicine
DX: Z95.1 Presence of aortocoronary bypass graft (principal); I25.10 Atherosclerotic heart disease of native coronary artery without angina pectoris; Z01.810 Encounter for preprocedural cardiovascular examination
CPT/HCPCS: 99214

== ENCOUNTER → 2024-04-05 13:32 | Outpatient (BNVA) | payer MEDICARE, MEDICAID, SELFPAY | PROVIDERS: PCP Nurse Practitioner Primary Care; Visit Provider Internal Medicine | DX: Z01.810 Encounter for preprocedural cardiovascular examination (principal); I25.10 Atherosclerotic heart disease of native coronary artery without angina pectoris; Z95.1 Presence of aortocoronary bypass graft | CPT/HCPCS: 99212 ==

== ENCOUNTER 2024-04-07 12:55 | Outpatient (AMB) | payer MEDICARE, MEDICAID, SELFPAY ==
--- NOTE | 2024-04-07 13:17 | MHC.PC.OV ---
Vital Signs 04/07/24 13:28 Height 5 ft 7 in Weight 177 lb BMI 27.7 BP 122/78 Blood Pressure Location Lt brachial Position Sitting Pulse 75 Pulse Source Pulse Oximeter Pulse Oximetry (%) 95 Oxygen Delivery Method Room Air Intake Visit Reasons: Pre-op spine surgery(EKG,CMP) Intake Note: Pt is here today for pre op visit. Allergies pollen extracts Allergy (Intermediate, Verified 04/07/24 13:30) Itching codeine [CODEINE] Allergy (Unknown, Verified 04/07/24 13:30) ITCHINESS Tobacco use date assessed: 04/07/24 Fall risk assessment: No Falls in past year Last assessed Fall Risk: 04/07/24 Dental Screening Dental Screen Date: 03/10/24 HPI HPI Comments History of Present Illness Details Patient is a 63-year-old male in today for a preop visit. Patient has a past medical history significant for hyperlipidemia, GERD, arthrosclerotic heart disease, nonalcoholic fatty liver, chronic cervical neck pain. Patient has history of CABG. He recently had consultation with Cardiology and culture media laboratory assistant procedure to determine risk for EGD/colonoscopy and cervical spine surgery. Notes from net developer software engineer c states he is intermediate risk for EGD/colonoscopy and he is considered intermediate to high risk for cervical spine surgery. Will obtain in office EKG today as well as CMP. Patient has complaint of slight burning pain where incision for catheterization procedure was made. Patient states in previous catheterization he had similar feeling however the burning and pain is slightly more intense this time. Patient denies any tingling or numbness. States the pain is mostly when he changes position. Will order ultrasound of right groin [facility] Medical History Atherosclerotic cardiovascular disease Myocardial infarction Nonalcoholic fatty liver Diverticulosis Surgical History S/P CABG (coronary artery bypass graft) Family History Mother Diabetes Melanoma Social History Housing: House Patient Tobacco Use Status: Never used Tobacco e-Cigarette/Vaping Use: Never Used service: No Current occupational status: employed Current occupational exposures/hazards: No Cognitive needs: No Hearing needs: No Vision needs: No Questionnaire Thrive Questionnaire Date Thrive assessed: 12/08/23 IVONNE-7 AMB Questionnaire IVONNE-7 Date IVONNE - 7 assessed: 12/08/23 Source: Developed by Drs. Satish Morales, Radha Jaquez, Bro Damian and colleagues, with an educational altaf from [employer]. Review of Systems Const All systems reviewed & are unremarkable except as noted in HPI and below ENT Denies dizziness Card Denies chest pain and Denies dyspnea Resp Denies dyspnea Neuro Denies dizziness Physical exam (Primary Care) Vital Signs: Last Vital Signs Pulse 75 04/07/24 13:28 BP 122/78 04/07/24 13:28 Pulse Ox 95 04/07/24 13:28 Oxygen Delivery Method Room Air 04/07/24 13:28 Care Plan Goal for BP management: Patient's blood pressure stable. BMI result Body Mass Index 27.7 Tobacco/Smoking Status: Tobacco use Status Tobacco use date assessed 04/07/24 04/07/24 13:34 Patient Tobacco Use Status Never used Tobacco 04/07/24 13:17 e-Cigarette/Vaping Use Never Used 04/07/24 13:17 Thrive Assessment: Date of Thrive Assessment Date Thrive assessed 12/08/23 04/07/24 13:17 Const Other: Appearance: Alert.? Oriented X3.? No acute distress.? Head: Normocephalic, atraumatic, Neck: Normal inspection.? Neck supple.? CVS: Normal heart rate and rhythm.? Pulses normal.? EKG performed in office. Respiratory: No respiratory distress.? Breath sounds normal.? Neuro: Oriented X 3.? No motor deficit.? No sensory deficit. Assessment and Plan Assessment & Plan (1) Right groin pain: Comment: Had incision of catheter procedure. Will order ultrasound of groin Code(s): R10.31 - Right lower quadrant pain Plan: Take your medications as prescribed. If you were prescribed antibiotics today, it is important that you take your medication to their entirety, do not skip any doses, do not finish them early. Return to the emergency department with new or worsening symptoms. Such as fevers, chills, chest pain, shortness of breath, nausea, vomiting, dizziness, headache, vision changes, lethargy In case of emergency call 911 Orders: Orders Comprehensive Met. Panel Today Z01.818 - Encounter for other preprocedural examination AMB EKG-In Office Today Z13.6 - Encounter for screening for cardiovascular disorders US pelvic limited Today R10.31 - Right lower quadrant pain Coding Level of Care Code Est Pt Level 3 (87971) Diagnoses Right groin pain R10.31 Time Spent (min) 28
[2024-04-07 13:28] VITALS: BP 122/78; PULSE 75; O2SAT 95; BMI 27.7
== END 2024-04-07 14:29 | disposition home or self-care (01) ==
PROVIDERS: PCP Nurse Practitioner Primary Care; Visit Provider Nurse Practitioner Primary Care
DX: R10.31 Right lower quadrant pain (principal)
CPT/HCPCS: 99213

== ENCOUNTER 2024-04-07 14:00 | Outpatient (REF) | payer MEDICARE, MEDICAID, SELFPAY ==
[2024-04-07 19:10] LABS: Alanine Aminotransferase 20 U/L (0-40); Albumin Level 4.6 g/dL (3.5-5.0); Alkaline Phosphatase 76 U/L (39-117); Anion Gap 16 (12-20); Aspartate Amino Transferase 17 U/L (5-37); Bilirubin Total 0.5 mg/dL (0.0-1.0); Blood Urea Nitrogen 15 mg/dL (9-16); Carbon Dioxide 25 mmol/L (22-29); Chloride 104 mmol/L (96-108); Estimated Glomerular Filt Rate > 60; Glucose Random 107 mg/dL (60-115); Potassium 4.3 mmol/L (3.3-5.1); Sodium 141 mmol/L (135-145); Total Protein 7.6 g/dL (6.5-8.0)
== END 2024-04-07 14:01 | disposition home or self-care (01) ==
LOC: HO.HMGCLDS 14:00
PROVIDERS: PCP Nurse Practitioner Primary Care; Visit Provider Nurse Practitioner Primary Care
DX: Z01.818 Encounter for other preprocedural examination (principal)
CPT/HCPCS: 36415; 80053

== ENCOUNTER 2024-04-16 10:17 | Outpatient (REF) | payer MEDICARE, SELFPAY | END 2024-04-16 10:18 | disposition home or self-care (01) | LOC: HO.SH 10:17 | PROVIDERS: Visit Provider Nurse Practitioner Primary Care | DX: H91.93 Unspecified hearing loss, bilateral (principal); Z71.89 Other specified counseling | CPT/HCPCS: 92557 ==

== ENCOUNTER 2024-04-20 10:49 | Day surgery (SDC) | payer MEDICARE, SELFPAY ==
[2024-04-20 11:08] VITALS: BMI 27.1
[2024-04-20 11:18] VITALS: BP 122/83; PULSE 73; RESP 16; TEMP 36.4; O2SAT 95
[2024-04-20] MEDS: Lactated Ringers 1,000 ML 100 ML IVCONT (11:33)
--- NOTE | 2024-04-20 12:00 | HO.ANESPROP2 ---
Documented by User: Corin Tillman NP 04/19/24 12:07 HPI - Anesthesia Eval Consult details Narrative: 63yo M for Upper Endoscopy and Colonoscopy CAD with [place] 2009. CABG x 1 2016 d/t symptoms. No cardiovascular symptoms since then. Cath done 03/2024 as w/u for surgery. No CP/SOB with fishing, yardwork, stairs. Cardiac cleared at [facility] Active Problems Active Problems: All Active Problems Right groin pain (Acute) Nocturia (Acute) Atypical nevi (Acute) Preoperative cardiovascular examination (Acute) Status post aorto-coronary artery bypass graft (Acute) Hearing difficulty of both ears (Acute) Wheeze (Acute) Right hip pain (Acute) Muscle spasm (Acute) Cervical pain (neck) (Acute) Prediabetes (Acute) Hyperlipidemia (Acute) GERD (gastroesophageal reflux disease) (Acute) Atherosclerotic cardiovascular disease (Acute) Past Medical History Medical History Arthritis Back pain Concussion Habitual snoring Bronchitis On beta jalyn at home Elevated cholesterol HTN (hypertension) Hx of compression fracture of spine Atherosclerotic cardiovascular disease Myocardial infarction Nonalcoholic fatty liver Diverticulosis Family History Family History Mother Diabetes Melanoma Family history of problems with anesthesia: No Surgical History Surgical History (Updated 04/20/24 @ 11:05 by Sherry Velasquez RN) History of mandibular surgery History of esophagogastroduodenoscopy (EGD) H/O colonoscopy Hx of rotator cuff surgery Hx of cardiac catheterization S/P CABG (coronary artery bypass graft) History of Problems with Anesthesia: No Social History Social History Housing: House Are you a primary care team coordinator scheduler to a significant other at home: No Do you presently have visiting nurse or other home services: No Patient Tobacco Use Status: Never used Tobacco e-Cigarette/Vaping Use: Never Used Use of substances other than those prescribed or required for medical reasons: Yes Substance Use Frequency: Occasionally Are you DNR?: No Advance Directives: No Advance Directives Information Provided: Yes service: No Current occupational status: employed Current occupational exposures/hazards: No Cognitive needs: No Hearing needs: No Vision needs: No Meds Allergies Allergy/AdvReac Type Severity Reaction Status Date / Time pollen extracts Allergy Intermediate Itching Verified 04/20/24 11:06 codeine [CODEINE] Allergy Unknown ITCHINESS Verified 04/20/24 11:06 Home Medications ?Medication ?Instructions ?Recorded ?Confirmed ?Last Taken ?Type aspirin 81 mg tablet,delayed 81 mg PO BID 10/31/23 04/20/24 04/19/24 History release (Adult Low Dose Aspirin) atorvastatin 80 mg tablet 80 mg PO BEDTIME 10/31/23 04/20/24 Unknown History magnesium 250 mg tablet 250 mg PO DAILY 12/08/23 04/20/24 Unknown History omeprazole 20 mg capsule,delayed 20 mg PO DAILY 12/08/23 04/20/24 04/20/24 06:00 History release cholecalciferol (vitamin D3) 50 50 mcg PO DAILY 01/26/24 04/20/24 04/20/24 06:00 History mcg (2,000 unit) capsule lisinopril 20 mg tablet 20 mg PO DAILY 04/05/24 04/20/24 Unknown History Exam Height,Weight and Vital Signs: Height 5 ft 7 in Weight 79.832 kg Last Vital Signs Pulse 83 04/08/24 12:32 Resp 18 04/08/24 12:32 BP 138/92 H 04/08/24 12:32 Pulse Ox 97 04/08/24 12:32 O2 Del Method Room Air 04/08/24 12:32 Pertinent Lab Results Pertinent Lab Results: Laboratory Tests 03/03/24 04/07/24 13:49 14:12 WBC 9.2 Hgb 16.0 Hct 46.8 Plt Count 256 Sodium 141 Potassium 4.3 Chloride 104 Carbon Dioxide 25 BUN 15 Creatinine 1.14 Narrative Narrative: EKG 12/2023 sinus rhythm with left bundle-branch block pattern. No prior EKGs for comparison. ECHO 12/2023 Conclusions: - 1. Normal LV ejection fraction 55-60% with mild LVH with underlying regional wall motion abnormality consistent with coronary artery disease 2. Normal cardiac valvular Doppler 3. Upper limits of normal ascending aortic size 4. No gross pericardial effusion Airway Mallampati Class: II TM Dist: >3cm Neck ROM: Poor Partial: Upper (doesnt wear) Heart: RRR Lungs: CTAB Assessment and Plan Assessment Anesthesia Assessment: Chart Reviewed Final Anesthetic Review Family History of Problems with Anesthesia: No History of Problems with Anesthesia: No Documented by User: Sherry Lu DO 04/20/24 12:09 PMFSH Past Medical History Medical History Arthritis Back pain Concussion Habitual snoring Bronchitis On beta jalyn at home Elevated cholesterol HTN (hypertension) Hx of compression fracture of spine Atherosclerotic cardiovascular disease Myocardial infarction Nonalcoholic fatty liver Diverticulosis Family History Family History Mother Diabetes Melanoma Family history of problems with anesthesia: No Surgical History Surgical History (Updated 04/20/24 @ 11:05 by Sherry Velasquez RN) History of mandibular surgery History of esophagogastroduodenoscopy (EGD) H/O colonoscopy Hx of rotator cuff surgery Hx of cardiac catheterization S/P CABG (coronary artery bypass graft) History of Problems with Anesthesia: No Social History Social History Housing: House Are you a primary care team coordinator scheduler to a significant other at home: No Do you presently have visiting nurse or other home services: No Patient Tobacco Use Status: Never used Tobacco e-Cigarette/Vaping Use: Never Used Use of substances other than those prescribed or required for medical reasons: Yes Substance Use Frequency: Occasionally Are you DNR?: No Advance Directives: No Advance Directives Information Provided: Yes service: No Current occupational status: employed Current occupational exposures/hazards: No Cognitive needs: No Hearing needs: No Vision needs: No Meds Allergies Allergy/AdvReac Type Severity Reaction Status Date / Time pollen extracts Allergy Intermediate Itching Verified 04/20/24 11:06 codeine [CODEINE] Allergy Unknown ITCHINESS Verified 04/20/24 11:06 Home Medications ?Medication ?Instructions ?Recorded ?Confirmed ?Last Taken ?Type aspirin 81 mg tablet,delayed 81 mg PO BID 10/31/23 04/20/24 04/19/24 History release (Adult Low Dose Aspirin) atorvastatin 80 mg tablet 80 mg PO BEDTIME 10/31/23 04/20/24 Unknown History magnesium 250 mg tablet 250 mg PO DAILY 12/08/23 04/20/24 Unknown History omeprazole 20 mg capsule,delayed 20 mg PO DAILY 12/08/23 04/20/24 04/20/24 06:00 History release cholecalciferol (vitamin D3) 50 50 mcg PO DAILY 01/26/24 04/20/24 04/20/24 06:00 History mcg (2,000 unit) capsule lisinopril 20 mg tablet 20 mg PO DAILY 04/05/24 04/20/24 Unknown History Exam Exam Date and Time: April 20, 2024 1200 Airway Mallampati Class: II TM Dist: >3cm Neck ROM: Limited Partial: Upper Heart: S1S2 Assessment and Plan Assessment Anesthesia Assessment: Anesthesia Plan Discussed and Chart Reviewed Final Anesthetic Review Family History of Problems with Anesthesia: No History of Problems with Anesthesia: No NPO: Yes ASA Class: III Final Preanesthetic Review: No Changes in Pt Med Stat, Meds/Allgs Chart Reviewed, Consent Obtained/Reviewed and Anes Risks/Benef Reviewed Patient Risk: Intermediate Procedure Risk: Low Anesthetic Plan Anesthetic Plan: MAC: and Agree w/ Assess. and Plan Disposition: Standard PACU
--- NOTE | 2024-04-20 12:40 | MHC.SHP ---
Pre-Procedural Eval Section A - 24 Hr Update-Section A only Date of Service: 04/20/24 Section B - Complete if H&P > 30 days Chief Complaint: screening,gerd Details of Present Illness: Myocardial infarction Nonalcoholic fatty liver Diverticulosis Surgical History S/P CABG (coronary artery bypass graft) Family History Mother Diabetes Present Medications: see Short Stay Collaborative assessment Allergies: Allergies Allergy/AdvReac Type Severity Reaction Status Date / Time pollen extracts Allergy Intermediate Itching Verified 04/20/24 11:06 codeine [CODEINE] Allergy Unknown ITCHINESS Verified 04/20/24 11:06 Review of Systems Review of Systems Comment: Ten point ROS negative Exam Exam Comment: Gen appear: No acute distress HEENT: no icterus Chest: No overt resp distress Abd: soft, nontender, nondistended Psych: Stable affect, answering questions appropriately Neuro: A/Ox3 noted to move all extremities spontaneously Ext: no peripheral edema Plan Diagnosis/Plan: Unchanged I have reviewed the history and physical and performed a pertinent physical examination on my patient. No changes have occurred unless specified. Time Spent With Patient Time: Total time managing care of this patient today ____ minutes.
--- NOTE | 2024-04-20 13:32 | P.OPN-COLO_ITS ---
Colonoscopy Operative Note Operative Note Date of Service: 04/20/24 Narrative: Procedure: Upper endoscopy and colonoscopy Indication: GERD, personal hx of polyps Endoscopist: Jolanta Lisa MD Anesthesia Provider: Belen Stevens CRNA Anesthesia type: MAC Instrument: [id number] and [id number] EGD Procedure:?? The procedure, indications, preparation and potential complications were reviewed with the patient, who indicated understanding and gave written informed consent to proceed. Physical exam was performed. The endoscope was introduced through the mouth, and advanced to the 2nd part of the duodenum. The mucosa was carefully examined on slow withdrawal of the endoscope. The patient tolerated the procedure well. There were no immediate complications.? EGD Findings:? * Esophagus:? Normal esophageal mucosa was noted. There was a nonobstructing Schatzki's ring right above the GE junction. The Z-line was at 37 cm. There was a moderate-sized hiatal hernia with the diaphragmatic pinch at 40 cm. Cold forceps biopsies were taken from GE junction to rule out Barretts. * Stomach:? Erythema and erosions noted in the antrum. Retroflexion was performed in the cardia that showed Hill grade II hernia. Random cold forceps biopsies were taken to rule out H pylori. * Duodenum:? Duodenal mucosa was normal to the extent of visualisation. Colonoscopy Procedure:? The patient was then turned for the colonoscopy. A digital rectal exam was p erformed which was abnormal for external hemorrhoids.? A distal attachment cap was affixed to the tip of the scope and the colonoscope was then inserted through the anus and advanced through the colon and advanced to the cecum at 75 cm and terminal ileum.? Appendiceal orifice and ileocecal valve were identified. Mucosa was carefully examined under high definition white light as the instrument was slowly withdrawn in a retrograde panoramic fashion. Retroflexion was performed in rectum. The procedure was not difficult. The quality of the prep was BBPS: 3+2+2 = adequate Withdrawal time minutes Limitations: No limitations Findings: Mucosa: Normal colon and terminal ileum mucosa. Protruding lesions: * Medium internal hemorrhoids without stigmata of recent bleeding. Excavated lesions: * Moderate diverticulosis of left side of the colon was noted. Impression: 1. Normal esophagus (biopsy) 2. Hiatal hernia 3. Antral gastritis (biopsy) 4. Normal duodenum 5. Normal colon and terminal ileum mucosa 6. Diverticulosis 6. Internal and external hemorrhoids Recommendations:?? * Follow-up path results * Cont omeprazole 20 mg once daily * Repeat colonoscopy for asymptomatic colorectal cancer screening in 5 years due to pt reported history of advanced adenoma the last colonoscopy
[2024-04-20 13:36] VITALS: BP 124/80; PULSE 63; RESP 14; TEMP 36.6; O2SAT 98
[2024-04-20 13:51] VITALS: BP 109/76; PULSE 61; RESP 16; TEMP 36.6; O2SAT 97
== END 2024-04-20 14:32 | disposition home or self-care (01) ==
PROVIDERS: PCP Nurse Practitioner Primary Care; Visit Provider Internal Medicine
PROC: (CPT 43239; principal; 2024-04-20 12:30)
DX: Z12.11 Encounter for screening for malignant neoplasm of colon (principal); K57.30 Diverticulosis of large intestine without perforation or abscess without bleeding; K64.8 Other hemorrhoids; K64.4 Residual hemorrhoidal skin tags; K21.9 Gastro-esophageal reflux disease without esophagitis; K22.2 Esophageal obstruction; K29.70 Gastritis, unspecified, without bleeding; K44.9 Diaphragmatic hernia without obstruction or gangrene; I10 Essential (primary) hypertension; J45.909 Unspecified asthma, uncomplicated; I25.10 Atherosclerotic heart disease of native coronary artery without angina pectoris; I25.2 Old myocardial infarction; Z95.2 Presence of prosthetic heart valve; Z79.82 Long term (current) use of aspirin; Z79.899 Other long term (current) drug therapy; Z88.5 Allergy status to narcotic agent
CPT/HCPCS: 43239; G0121; 88305; 88313; 88342; J2250; J2704

== ENCOUNTER → 2024-04-20 10:49 | Outpatient (BNV) | payer MEDICARE, SELFPAY | PROVIDERS: PCP Nurse Practitioner Primary Care; Visit Provider Internal Medicine | DX: Z12.11 Encounter for screening for malignant neoplasm of colon (principal); Z86.010 Personal history of colon polyps; K57.30 Diverticulosis of large intestine without perforation or abscess without bleeding; K64.8 Other hemorrhoids; K21.9 Gastro-esophageal reflux disease without esophagitis; K22.2 Esophageal obstruction; K29.70 Gastritis, unspecified, without bleeding | CPT/HCPCS: 43239; G0105 ==

== ENCOUNTER 2024-05-03 00:28 | Emergency (ER) | payer OTHER, SELFPAY ==
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
[2024-05-03 00:30] VITALS: BP 134/80; PULSE 77; RESP 18; TEMP 36.8; O2SAT 98; BMI 28.2
[2024-05-03 05:07] VITALS: BP 128/82; PULSE 66; RESP 16; TEMP 36.2; O2SAT 98
[2024-05-03 06:54] VITALS: BP 119/77; PULSE 58; RESP 16; TEMP 36.7; O2SAT 97
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
[2024-05-03] MEDS: Acetaminophen 325 MG TABLET 975 MG PO (08:12)
[2024-05-03 08:55] VITALS: BP 119/77; PULSE 58; RESP 16; TEMP 36.7; O2SAT 97
== END 2024-05-03 08:56 | disposition home or self-care (01) ==
PROVIDERS: Emergency Provider Emergency Medicine; PCP Nurse Practitioner Primary Care
DX: Z04.1 Encounter for examination and observation following transport accident (principal); M25.511 Pain in right shoulder; M25.531 Pain in right wrist
CPT/HCPCS: 73030; 73100; 99212; 99283; 99284

== ENCOUNTER 2024-05-03 13:44 | Outpatient (AMB) | payer MEDICARE, MEDICAID, SELFPAY ==
[2024-05-03 13:53] VITALS: BP 130/90; PULSE 90; O2SAT 96; BMI 27.0
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
== END 2024-05-03 15:27 | disposition home or self-care (01) ==
PROVIDERS: PCP Nurse Practitioner Primary Care; Visit Provider Nurse Practitioner Family
DX: K21.9 Gastro-esophageal reflux disease without esophagitis (principal); Z98.890 Other specified postprocedural states; K22.2 Esophageal obstruction; K44.9 Diaphragmatic hernia without obstruction or gangrene
CPT/HCPCS: 99213

== ENCOUNTER 2024-05-06 11:08 | Outpatient (REF) | payer MEDICARE, SELFPAY ==
--- NOTE | ~2024-05-06 | US_ITS ---
EXAMINATION: US RIGHT LOWER QUADRANT, LIMITED/FOLLOW UP CLINICAL INFORMATION: Right lower quadrant pain. COMPARISON: None available. TECHNIQUE: High-frequency linear ultrasound transducer was used to examine the area of clinical concern in the right lower quadrant. FINDINGS: Some small groin lymph nodes are seen with normal architecture measuring 7 x 3 x 7 mm and 6 x 4 x 7 mm. An abnormal mass or fluid collection is not seen. Vascular structures in the right groin appear normal. US/US pelvic limited IMPRESSION: No significant abnormality is seen.
== END 2024-05-06 11:09 | disposition home or self-care (01) ==
LOC: HO.US 11:08
PROVIDERS: PCP Nurse Practitioner Primary Care; Visit Provider Nurse Practitioner Primary Care
DX: R10.31 Right lower quadrant pain (principal)
CPT/HCPCS: 76857

== ENCOUNTER 2024-05-10 12:46 | Outpatient (AMB) | payer MEDICARE, MEDICAID, SELFPAY ==
--- NOTE | 2024-05-10 12:57 | MHC.OFFVIS ---
Intake Visit Reasons: nocturia Intake Note: New Patient presents today for initial visit to establish treatment for : Nocturia and urinary frequency Urology Medications: none Allergies to Antibiotic: none Blood Thinner: aspirin PVR: 0ml's Canteen Manager Required: No Accompanied by: Self / Same As Patient Allergies pollen extracts Allergy (Intermediate, Verified 05/10/24 13:44) Itching codeine [CODEINE] Allergy (Unknown, Verified 05/10/24 13:44) ITCHINESS Medication List - Last Reconciled 05/10/24 by VIPIN Kwon acetaminophen ER (Tylenol Arthritis Pain) 650 mg PO Q8H PRN aspirin (Adult Low Dose Aspirin) 81 mg PO BID atorvastatin 80 mg PO BEDTIME cholecalciferol (vitamin D3) 50 mcg PO DAILY cyclobenzaprine 10 mg PO TID PRN levalbuterol tartrate 45 mcg/actuation (Xopenex HFA) 2 puffs inhalation Q4-6H PRN lisinopril 20 mg PO DAILY magnesium 250 mg PO DAILY metoprolol succinate ER 25 mg PO DAILY nitroglycerin 0.4 mg sublingual Q5M PRN omeprazole 20 mg PO DAILY tamsulosin 0.4 mg PO BEDTIME 30 days HPI Comments Details: Satish is a very pleasant 63-year-old male patient of Dr. Hermosillo. He has a past medical history of hiatal hernia, arthritis, back pain, bronchitis, hypercholesteremia, hypertension, compression fracture of the spine, ACD, myocardial infarction, nonalcoholic fatty liver, and diverticulosis. He presents to the office today as a new patient for ongoing lower urinary tract symptoms. In discussion with the patient today he reports having followed up with his PCP at which time he was discussing his weak urinary stream, nocturia, urinary frequency, and urinary dribbling at which time recommendations were made for urology referral for further assessment evaluation. He reports episodes of nocturia 3-5 times per night. When asked he reports symptoms have been present for quite some time however feels they are worsening. In review of patient's chart it appears a PSA was ordered and obtained 12/24 0.8. When asked he does report a history of snoring and does feel fatigued upon wakening at times. He otherwise denies incontinence, hematuria, dysuria, foul smelling urine, flank pain, fever, and or chills. He reports having had recent pelvic ultrasound for right-sided groin pain he has been experiencing since cardiac catheterization procedure. He otherwise offers no other issues or concerns at this time. [facility] Medical History Hiatal hernia Schatzki's ring Arthritis Back pain Concussion Habitual snoring Bronchitis On beta jalyn at home Elevated cholesterol HTN (hypertension) Hx of compression fracture of spine Atherosclerotic cardiovascular disease Myocardial infarction Nonalcoholic fatty liver Diverticulosis Surgical History History of mandibular surgery History of esophagogastroduodenoscopy (EGD) H/O colonoscopy Hx of rotator cuff surgery Hx of cardiac catheterization S/P CABG (coronary artery bypass graft) Family History Mother Diabetes Melanoma Social History Housing: House Are you a primary urgent care physician to a significant other at home: No Do you presently have visiting nurse or other home services: No Patient Tobacco Use Status: Never used Tobacco e-Cigarette/Vaping Use: Never Used service: No Current occupational status: employed Current occupational exposures/hazards: No Cognitive needs: No Hearing needs: No Vision needs: No Review of Systems Const Reports no additional complaints Eyes Reports no additional complaints ENT Reports no additional complaints Card Reports as per HPI Resp Reports no additional complaints GI Reports as per HPI Reports as per HPI Musc Reports as per HPI Neuro Reports no additional complaints Psych Reports no additional complaints Endo Reports no additional complaints John/Lymph Reports no additional complaints Aller/Immun Reports no additional complaints Physical Exam Const General: cooperative, healthy appearing, comfortable, no acute distress, well developed, alert and awake Orientation/consciousness: patient oriented x3 Limitations: no limitations HEENT Head: Yes normal to inspection, Yes normocephalic and Yes atraumatic Ears: hearing grossly normal bilaterally Eyes General: appearance normal, both eyes and all related structures Neck Neck: Yes normal visual inspection and Yes trachea midline Chest Chest palpation & inspection: normal inspection of the chest Resp Effort & Inspection: normal respiratory effort and able to speak in complete sentences Cardio Rate: regular rate GI Inspection: Yes normal to inspection General: Yes no CVA tenderness Back/Spine/Pelvis Back: no CVA tenderness Skin General skin exam: no rashes or lesions noted Neuro General: patient oriented x3 Extrem General: Yes normal to inspection Psych Appearance: grossly normal and well kempt Mental Status: mental status grossly normal Speech and movement: Normal speech and movement present and Clear speech present Affect: normal affect Attitude: cooperative Thought process: Normal thought process present Thought content: Normal thought content present Insight: Fair insight present (Psych) Judgement: Fair judgement present (Psych) Office Procedures Post Void Residual Post Residual Void Post Void Residual (PVR): 0 [id number] Void Residual by ultrasound Results AMB Urinalysis, Automated UA Leukoctes 0 Chioma/uL Last Edit by [employer] on 05/10/24 13:26 UA Nitrite Negative Last Edit by [employer] on 05/10/24 13:26 UA Urobilinogen 0.2 mg/dL Last Edit by [employer] on 05/10/24 13:26 UA Protein 0 mg/dL Last Edit by [employer] on 05/10/24 13:26 UA pH 6.0 Last Edit by [employer] on 05/10/24 13:26 UA Blood 0 Leonard/uL Last Edit by [employer] on 05/10/24 13:26 UA Specific [place] 1.015 Last Edit by [employer] on 05/10/24 13:26 UA Ketone Negative Last Edit by [employer] on 05/10/24 13:26 UA Bilirubin 0 mg/dL Last Edit by [employer] on 05/10/24 13:26 UA Glucose 0 mg/dL Last Edit by [employer] on 05/10/24 13:26 Results Reviewed Results Reviewed: Laboratory Last Values Urine pH (Auto) 6.0 05/10/24 13:04 Specific [place] (Auto) 1.015 05/10/24 13:04 Urine Protein (Auto) 0 mg/dL 05/10/24 13:04 Glucose (UA)(Auto) 0 mg/dL 05/10/24 13:04 Urine Ketones (Auto) Negative 05/10/24 13:04 Urine Blood (Auto) 0 Leonard/uL 05/10/24 13:04 Urine Nitrite (Auto) Negative 05/10/24 13:04 Urine Bilirubin (Auto) 0 mg/dL 05/10/24 13:04 Urine Urobilinogen (Auto) 0.2 mg/dL 05/10/24 13:04 Leukocyte Esterase (Auto) 0 Chioma/uL 05/10/24 13:04 Assessment & Plan Assessment & Plan (1) Nocturia: Comment: Will refer patient to Urology. Code(s): R35.1 - Nocturia Category: Medical (2) Weak urinary stream: Code(s): R39.12 - Poor urinary stream Category: Medical (3) Urinary dribbling: Code(s): N39.43 - Post-void dribbling Category: Medical (4) Urinary frequency: Code(s): R35.0 - Frequency of micturition Category: Medical Plan In office urinalysis results reviewed with the patient today; as noted above. PVR 0 mL. Discussed at length potential causes for lower urinary tract symptoms patient is experiencing. Will obtain retroperitoneal ultrasound for further assessment evaluation. Will refer for home sleep study for further assessment evaluation. Start Flomax as discussed and prescribed. Discussed at length lifestyle modifications to assist with lower urinary tract symptoms patient is experiencing. Recent PSA results reviewed with the patient today; as noted above. Discussed possible near future in office cystoscopy for further assessment evaluation. Follow-up in 1-3 months with imaging to be completed prior; or sooner with any issues, concerns, and or questions. Orders: Orders AMB Urinalysis Automated Today Z13.9 - Encounter for screening, unspecified AMB Post Void Residual by ultrasound Today R35.1 - Nocturia RT home sleep study Today R06.83 - Snoring, R35.1 - Nocturia, R53.83 - Other fatigue US retroperitoneal comp Today N39.43 - Post-void dribbling, R35.0 - Frequency of micturition, R35.1 - Nocturia, R39.12 - Poor urinary stream Medications: New tamsulosin 0.4 mg PO BEDTIME 30 caps 3RF 30 days N40.1 - Benign prostatic hyperplasia with lower urinary tract symptoms, R35.1 - Nocturia Patient Instructions: The patient had an opportunity to ask questions regarding the treatment plan. All questions were answered. Physical exam, labs, and imaging were discussed and reviewed in detail. As well as risks, benefits, and discussion of treatment choices. No major barriers to understanding were identified. The patient expressed understanding and agreement with the above treatment plan. The patient was made aware they should contact our office by phone for worsening of their current condition, the appearance of new symptoms, or with any questions or concerns. Compliance is encouraged with any medications and follow up testing that is ordered. It is a privilege to be allowed the opportunity to participate in? your urological care.? Again, if you have any questions or concerns If you have any questions or concerns please do not hesitate to contact me. The office is [phone]. This note is constructed using voice recognition software. While every effort has been made to ensure accuracy customer support assistant errors may have been included. Yours sincerely, VIPIN Kwon Coding Level of Care Code New Pt Level 4 (83343) Diagnoses Nocturia R35.1 Weak urinary stream R39.12 Urinary dribbling N39.43 Urinary frequency R35.0 CPT Codes Post Residual Void - PVR CPT Code: 99333-[id number] Void Residual by ultrasound ([id number])
== END 2024-05-10 13:42 | disposition home or self-care (01) ==
PROVIDERS: PCP Nurse Practitioner Primary Care; Visit Provider Nurse Practitioner Family
DX: R35.1 Nocturia (principal); R39.12 Poor urinary stream; N39.43 Post-void dribbling; R35.0 Frequency of micturition; Z13.9 Encounter for screening, unspecified
CPT/HCPCS: 99204

== ENCOUNTER → 2024-05-10 12:46 | Outpatient (BNVA) | payer MEDICARE, MEDICAID, SELFPAY | PROVIDERS: PCP Nurse Practitioner Primary Care; Visit Provider Nurse Practitioner Family | DX: R35.1 Nocturia (principal); R39.12 Poor urinary stream; R35.0 Frequency of micturition; N39.43 Post-void dribbling | CPT/HCPCS: 51798; 81003; 99202 ==

== ENCOUNTER 2024-05-18 11:21 | Outpatient (REF) | payer MEDICARE, MEDICAID, SELFPAY ==
--- NOTE | ~2024-05-18 | US_ITS ---
EXAMINATION: US RETROPERITONEAL COMPLETE (RENAL) CLINICAL INFORMATION: Nocturia. COMPARISON: None available. TECHNIQUE: Real-time imaging of the kidneys and bladder. FINDINGS: RIGHT KIDNEY: 10.7 x 5.8 x 5.2 cm (SAG x AP x TRV). The kidney is normal in size, contour, and echogenicity. Renal cortical thickness is normal. No renal calculi or hydronephrosis. 2.3 cm simple cyst in the lower pole for which no imaging follow-up is recommended. LEFT KIDNEY: 10.5 x 4.9 x 3.8 cm (SAG x AP x TRV). The kidney is normal in size, contour, and echogenicity. Renal cortical thickness is normal. No calculi or focal parenchymal lesions. No hydronephrosis. BLADDER: Partially distended. Bilateral ureteral jets are not demonstrated. Prevoid bladder volume is 90 mL. Postvoid bladder volume is 4 mL. The prostate measures 10 mL. US/US retroperitoneal comp IMPRESSION: Unremarkable renal and bladder ultrasound.
== END 2024-05-18 11:22 | disposition home or self-care (01) ==
LOC: HO.HMGCX 11:21
PROVIDERS: PCP Nurse Practitioner Primary Care; Visit Provider Nurse Practitioner Family
DX: R35.1 Nocturia (principal); R39.12 Poor urinary stream; R35.0 Frequency of micturition; N39.43 Post-void dribbling
CPT/HCPCS: 76770

== ENCOUNTER 2024-06-08 14:26 | Outpatient (AMB) | payer MEDICARE, MEDICAID, SELFPAY ==
[2024-06-08 14:43] VITALS: BP 116/76; PULSE 76; BMI 27.3
--- NOTE | 2024-06-08 14:43 | A.OFFVIS_ITS ---
Vital Signs 06/08/24 14:43 Height 5 ft 7 in Weight 174 lb 9.698 oz BMI 27.3 BP 116/76 Blood Pressure Location Lt brachial Position Sitting Pulse 76 Pulse Source Pulse Oximeter Intake Visit Reasons: follow up Contact Centre Supervisor Required: No Accompanied by: Self / Same As Patient Allergies pollen extracts Allergy (Intermediate, Verified 05/10/24 13:44) Itching codeine [CODEINE] Allergy (Unknown, Verified 05/10/24 13:44) ITCHINESS Medication List - Last Reconciled 06/08/24 by Leonardo Agustin MD acetaminophen ER (Tylenol Arthritis Pain) 650 mg PO Q8H PRN aspirin (Adult Low Dose Aspirin) 81 mg PO BID atorvastatin 80 mg PO BEDTIME cholecalciferol (vitamin D3) 50 mcg PO DAILY cyclobenzaprine 10 mg PO TID PRN levalbuterol tartrate 45 mcg/actuation (Xopenex HFA) 2 puffs inhalation Q4-6H PRN lisinopril 20 mg PO DAILY magnesium 250 mg PO DAILY metoprolol succinate ER 25 mg PO DAILY nitroglycerin 0.4 mg sublingual Q5M PRN omeprazole 20 mg PO DAILY tamsulosin 0.4 mg PO BEDTIME 30 days HPI Comments Details: Satish returns for follow-up. Unfortunately, seen in consultation regarding preoperative stratification for neck surgery. To recall, patient apparently underwent coronary artery bypass surgery in [place] about 5-6 years ago. According to him, he has lived in numerous states including [place], [place], [place], [place] over the last few years. Had seen Cardiology in different places but he cannot recall any information about that. Really went cardiac catheterization but no interventions performed. Overall, he states he is generally doing okay. Occasional chest pains but for the most part he is getting around fine. He was supposed to go for neck surgery but it was not performed because of cardiac risks. [facility] Medical History Hiatal hernia Schatzki's ring Arthritis Back pain Concussion Habitual snoring Bronchitis On beta jalyn at home Elevated cholesterol HTN (hypertension) Hx of compression fracture of spine Atherosclerotic cardiovascular disease Myocardial infarction Nonalcoholic fatty liver Diverticulosis Surgical History History of mandibular surgery History of esophagogastroduodenoscopy (EGD) H/O colonoscopy Hx of rotator cuff surgery Hx of cardiac catheterization S/P CABG (coronary artery bypass graft) Family History (Updated 06/08/24 @ 14:47 by Ethel Altman CMA) Mother Diabetes Melanoma Enlarged heart Father Cancer Heart attack Social History Housing: House Are you a primary special needs child caregiver to a significant other at home: No Do you presently have visiting nurse or other home services: No Patient Tobacco Use Status: Never used Tobacco e-Cigarette/Vaping Use: Never Used service: No Current occupational status: employed Current occupational exposures/hazards: No Cognitive needs: No Hearing needs: No Vision needs: No Review of Systems Const Denies chills, Denies fatigue, Denies fever(s), Denies weight gain and Denies weight loss Card Denies chest pain, Denies leg edema, Denies lightheadedness, Denies palpitations, Denies dyspnea on exertion and Denies orthopnea Resp Denies cough and Denies dyspnea on exertion GI Denies hematochezia and Denies change in stool character Musc Denies muscle weakness and Denies radiating pain into limb Endo Denies fatigue and Denies palpitations Physical Exam Vital Signs: Last Vital Signs Pulse 76 06/08/24 14:43 BP 116/76 06/08/24 14:43 BMI result Body Mass Index 27.3 Const General: comfortable and no acute distress Orientation/consciousness: patient oriented x3 HEENT Other: Unremarkable Head: Yes normal to inspection Neck Neck: Yes normal visual inspection Chest Chest palpation & inspection: normal inspection of the chest Resp Auscultation: clear to auscultation bilaterally Cardio Palpation: normal PMI Heart sounds: S1 normal heart sound present, S2 normal heart sound present, no gallops, no murmurs and no rubs GI Palpation (GI): Soft to palpation Back/Spine/Pelvis Other: unremarkable Skin General skin exam: no rashes or lesions noted Neuro General: patient oriented x3 Extrem General: Yes normal to inspection Psych Mental Status: mental status grossly normal Assessment & Plan Assessment & Plan (1) Status post aorto-coronary artery bypass graft: Code(s): Z95.1 - Presence of aortocoronary bypass graft Category: Surgical (2) Atherosclerotic cardiovascular disease: Code(s): I25.10 - Atherosclerotic heart disease of [place] coronary artery without angina pectoris Category: Medical Plan Cardiac studies reviewed. EKG from December shows sinus rhythm with left bundle-branch block pattern. No prior EKGs for comparison. Echocardiogram from December with LVEF of 55-60%. [place], apical inferior, mid inferior, anteroseptal hypokinesis. Basal inferior, mid inferoseptal and apical septum were akinetic. Unfortunately, we do not have any prior EKGs or echocardiogram for comparison as patient not able to give information about prior cardiologists. We proceeded with a diagnostic catheterization. Mid LAD has 90% stenosis with significant tortuosity. Bursal is hardly 2 mm in size and diffusely diseased. Small sized stent thought to be getting risk of stent thrombosis especially with interruption of antiplatelet drugs and hence medical therapy was recommended. Otherwise, left main/circumflex normal and RCA has minimal irregularities. Overall, clinically he has got no overt angina. For the most part is getting around fine. Hence continue current medications. Remains on aspirin, beta- blockers, statins. Prn sublingual nitroglycerin. With regard to the neck surgery itself, thought to be at intermediate to high cardiac risk and hence not performed. He is requesting referral for pain medicine. Orders: Referrals Pain Management Referral M54.2 - Cervicalgia Coding Level of Care Code Est Pt Level 4 (74707) Diagnoses Status post aorto-coronary artery bypass graft Z95.1 Atherosclerotic cardiovascular disease I25.10
== END 2024-06-08 15:07 | disposition home or self-care (01) ==
PROVIDERS: PCP Nurse Practitioner Primary Care; Visit Provider Internal Medicine
DX: Z95.1 Presence of aortocoronary bypass graft (principal); I25.10 Atherosclerotic heart disease of native coronary artery without angina pectoris
CPT/HCPCS: 99214

== ENCOUNTER → 2024-06-08 14:26 | Outpatient (BNVA) | payer MEDICARE, MEDICAID, SELFPAY | PROVIDERS: PCP Nurse Practitioner Primary Care; Visit Provider Internal Medicine | DX: I25.10 Atherosclerotic heart disease of native coronary artery without angina pectoris (principal); Z95.1 Presence of aortocoronary bypass graft; Z79.82 Long term (current) use of aspirin; Z79.899 Other long term (current) drug therapy | CPT/HCPCS: 99212 ==

== ENCOUNTER 2024-06-15 11:40 | Outpatient (AMB) | payer MEDICARE, MEDICAID, SELFPAY ==
--- NOTE | 2024-06-15 11:43 | A.OFFVIS_ITS ---
Intake Visit Reasons: 1m/US Intake Note: Patient is present for 1m/US Urology Medication:TAMSULOSIN Antibiotic Allergy:none Blood Thinner:aspirin Last PVR: 0ML'S Today's PVR: 28ML'S Administrative Coordinator Required: No Allergies pollen extracts Allergy (Intermediate, Verified 06/15/24 11:44) Itching codeine [CODEINE] Allergy (Unknown, Verified 06/15/24 11:44) ITCHINESS HPI Comments Details: Satish is a very pleasant 63-year-old male patient of Dr. Hermosillo. He has a past medical history of hiatal hernia, arthritis, back pain, bronchitis, hypercholesteremia, hypertension, compression fracture of the spine, ACD, myocardial infarction, nonalcoholic fatty liver, and diverticulosis. He presents to the office today for follow-up of his lower urinary tract symptoms. Of note, patient was seen as a new patient for ongoing lower urinary tract symptoms approximately 5 weeks ago at which time a retroperitoneal ultrasound was ordered for further assessment evaluation and the patient was started on Flomax. Recent retroperitoneal ultrasound results reviewed with the patient today. Bilateral kidneys with no nephrolithiasis or hydronephrosis. 2.3 cm right simple cyst in the lower pole for which no imaging follow-up is recommended per radiology report. The bladder is partially distended. Bilateral ureteral jets are not demonstrated. Pre void bladder volume is approximately 90 mL. Postvoid bladder volume is approximately 5 mL. The prostate measures 10 mL. Patient reports having initiated Flomax as prescribed however started experiencing bilateral scrotal discomfort after the 1st few days and has since stopped taking the medication. Reports scrotal pain stopped shortly after discontinuation of medication. He continues to report weak urinary stream, split stream, urinary frequency, urinary dribbling, and nocturia. During last office visit referral was submitted for sleep study for further assessment evaluation however in discussion with the patient today he reports not having received a call. He reports episodes of nocturia 3-5 times per night. When asked he reports symptoms have been present for quite some time however feels they are worsening. In revi ew of patient's chart it appears a PSA was ordered and obtained 12/24 0.8. When asked he does report a history of snoring and does feel fatigued upon wakening at times. He otherwise denies incontinence, hematuria, dysuria, foul smelling urine, flank pain, fever, and or chills. He otherwise offers no other issues or concerns at this time. [facility] Medical History Hiatal hernia Schatzki's ring Arthritis Back pain Concussion Habitual snoring Bronchitis On beta jalyn at home Elevated cholesterol HTN (hypertension) Hx of compression fracture of spine Atherosclerotic cardiovascular disease Myocardial infarction Nonalcoholic fatty liver Diverticulosis Surgical History History of mandibular surgery History of esophagogastroduodenoscopy (EGD) H/O colonoscopy Hx of rotator cuff surgery Hx of cardiac catheterization S/P CABG (coronary artery bypass graft) Family History (Updated 06/08/24 @ 14:47 by Ethel Altman CMA) Mother Diabetes Melanoma Enlarged heart Father Cancer Heart attack Social History Housing: House Are you a primary laboratory animal care veterinarian to a significant other at home: No Do you presently have visiting nurse or other home services: No Patient Tobacco Use Status: Never used Tobacco e-Cigarette/Vaping Use: Never Used service: No Current occupational status: employed Current occupational exposures/hazards: No Cognitive needs: No Hearing needs: No Vision needs: No Review of Systems Const Reports no additional complaints Eyes Reports no additional complaints ENT Reports no additional complaints Card Reports as per HPI Resp Reports no additional complaints GI Reports as per HPI Reports as per HPI Musc Reports as per HPI Neuro Reports no additional complaints Psych Reports no additional complaints Endo Reports no additional complaints John/Lymph Reports no additional complaints Aller/Immun Reports no additional complaints Physical Exam Const General: cooperative, healthy appearing, comfortable, no acute distress, well developed, alert and awake Orientation/consciousness: patient oriented x3 Limitations: no limitations HEENT Head: Yes normal to inspection, Yes normocephalic and Yes atraumatic Ears: hearing grossly normal bilaterally Eyes General: appearance normal, both eyes and all related structures Neck Neck: Yes normal visual inspection and Yes trachea midline Chest Chest palpation & inspection: normal inspection of the chest Resp Effort & Inspection: normal respiratory effort and able to speak in complete sentences Cardio Rate: regular rate GI Inspection: Yes normal to inspection General: Yes no CVA tenderness Back/Spine/Pelvis Back: no CVA tenderness Skin General skin exam: no rashes or lesions noted Neuro General: patient oriented x3 Extrem General: Yes normal to inspection Psych Appearance: grossly normal and well kempt Mental Status: mental status grossly normal Speech and movement: Normal speech and movement present and Clear speech present Affect: normal affect Attitude: cooperative Thought process: Normal thought process present Thought content: Normal thought content present Insight: Fair insight present (Psych) Judgement: Fair judgement present (Psych) Office Procedures Post Void Residual Post Residual Void Post Void Residual (PVR): 28 [id number] Void Residual by ultrasound Results AMB Urinalysis, Automated UA Leukoctes 0 Chioma/uL Last Edit by BRIAN Diaz on 06/15/24 11:55 UA Nitrite Negative Last Edit by BRIAN Diaz on 06/15/24 11:55 UA Urobilinogen 0.2 mg/dL Last Edit by BRIAN Diaz on 06/15/24 11:5 5 UA Protein 0 mg/dL Last Edit by Connie Bowman CCM on 06/15/24 11:55 UA pH 6.5 Last Edit by Connie Bowman CCM on 06/15/24 11:55 UA Blood 0 Leonard/uL Last Edit by Connie Bowman CCM on 06/15/24 11:55 UA Specific [place] 1.015 Last Edit by BRIAN Diaz on 06/15/24 11: 55 UA Ketone Negative Last Edit by BRIAN Diaz on 06/15/24 11:55 UA Bilirubin 0 mg/dL Last Edit by Connie Bowman CCM on 06/15/24 11:55 UA Glucose 0 mg/dL Last Edit by Connie Bowman CCM on 06/15/24 11:55 Results Reviewed Results Reviewed: Laboratory Last Values Urine pH (Auto) 6.5 06/15/24 11:54 Specific [place] (Auto) 1.015 06/15/24 11:54 Urine Protein (Auto) 0 mg/dL 06/15/24 11:54 Glucose (UA)(Auto) 0 mg/dL 06/15/24 11:54 Urine Ketones (Auto) Negative 06/15/24 11:54 Urine Blood (Auto) 0 Leonard/uL 06/15/24 11:54 Urine Nitrite (Auto) Negative 06/15/24 11:54 Urine Bilirubin (Auto) 0 mg/dL 06/15/24 11:54 Urine Urobilinogen (Auto) 0.2 mg/dL 06/15/24 11:54 Leukocyte Esterase (Auto) 0 Chioma/uL 06/15/24 11:54 Date of Service: 05/18/24 EXAMINATION: US RETROPERITONEAL COMPLETE (RENAL) FINDINGS: RIGHT KIDNEY: 10.7 x 5.8 x 5.2 cm (SAG x AP x TRV). The kidney is normal in size, contour, and echogenicity. Renal cortical thickness is normal. No renal calculi or hydronephrosis. 2.3 cm simple cyst in the lower pole for which no imaging follow-up is recommended. LEFT KIDNEY: 10.5 x 4.9 x 3.8 cm (SAG x AP x TRV). The kidney is normal in size, contour, and echogenicity. Renal cortical thickness is normal. No calculi or focal parenchymal lesions. No hydronephrosis. BLADDER: Partially distended. Bilateral ureteral jets are not demonstrated. Prevoid bladder volume is 90 mL. Postvoid bladder volume is 4 mL. The prostate measures 10 mL. IMPRESSION: Unremarkable renal and bladder ultrasound. Assessment & Plan Assessment & Plan (1) Nocturia: Comment: Will refer patient to Urology. Code(s): R35.1 - Nocturia Category: Medical (2) Weak urinary stream: Code(s): R39.12 - Poor urinary stream Category: Medical (3) Urinary dribbling: Code(s): N39.43 - Post-void dribbling Category: Medical (4) Urinary frequency: Code(s): R35.0 - Frequency of micturition Category: Medical Plan In office urinalysis results reviewed with the patient today; as noted above. PVR 28mls. Discussed at length potential causes for lower urinary tract symptoms patient is experiencing. Recent retroperitoneal ultrasound results reviewed with the patient today. Will refer for home sleep study for further assessment evaluation. Stop Flomax. Start alfuzosin as discussed and prescribed. Discussed at length lifestyle modifications to assist with lower urinary tract symptoms patient is experiencing. Discussed possible near future in office cystoscopy for further assessment evaluation. Follow-up in 1-3 months with PVR; or sooner with any issues, concerns, and or questions. Orders: Orders AMB Urinalysis Automated Today Z13.9 - Encounter for screening, unspecified Medications: New alfuzosin ER Take before bedtime 10 mg PO BEDTIME 30 days 30 tabs 1RF N32.0 - Bladder- neck obstruction, N40.1 - Benign prostatic hyperplasia with lower urinary tract symptoms, R33.9 - Retention of urine, unspecified, R35.1 - Nocturia, R39.12 - Poor urinary stream Patient Instructions: The patient had an opportunity to ask questions regarding the treatment plan. All questions were answered. Physical exam, labs, and imaging were discussed and reviewed in detail. As well as risks, benefits, and discussion of treatment choices. No major barriers to understanding were identified. The patient expressed understanding and agreement with the above treatment plan. The patient was made aware they should contact our office by phone for worsening of their current condition, the appearance of new symptoms, or with any questions or concerns. Compliance is encouraged with any medications and follow up testing that is ordered. It is a privilege to be allowed the opportunity to participate in? your urological care.? Again, if you have any questions or concerns If you have any questions or concerns please do not hesitate to contact me. The office is [phone]. This note is constructed using voice recognition software. While every effort has been made to ensure accuracy enterprise engineer errors may have been included. Yours sincerely, MEY Kwon-JOSELINE Coding Level of Care Code Est Pt Level 4 (51996) Diagnoses Nocturia R35.1 Weak urinary stream R39.12 Urinary dribbling N39.43 Urinary frequency R35.0 CPT Codes Post Residual Void - PVR CPT Code: 03935-[id number] Void Residual by ultrasound ([id number])
== END 2024-06-15 12:21 | disposition home or self-care (01) ==
PROVIDERS: PCP Nurse Practitioner Primary Care; Visit Provider Nurse Practitioner Family
DX: R35.1 Nocturia (principal); R39.12 Poor urinary stream; N39.43 Post-void dribbling; R35.0 Frequency of micturition; Z13.9 Encounter for screening, unspecified
CPT/HCPCS: 99214

== ENCOUNTER → 2024-06-15 11:40 | Outpatient (BNVA) | payer MEDICARE, MEDICAID, SELFPAY | PROVIDERS: PCP Nurse Practitioner Primary Care; Visit Provider Nurse Practitioner Family | DX: N04.1 Nephrotic syndrome with focal and segmental glomerular lesions (principal); R35.1 Nocturia; R39.12 Poor urinary stream; N39.43 Post-void dribbling; R35.0 Frequency of micturition; R33.8 Other retention of urine; Z79.899 Other long term (current) drug therapy | CPT/HCPCS: 51798; 81003; 99212 ==

== ENCOUNTER 2024-06-23 10:52 | Outpatient (AMB) | payer MEDICARE, MEDICAID, SELFPAY ==
--- NOTE | 2024-06-23 11:01 | MHC.OFFVIS ---
Vital Signs 06/23/24 11:10 Height 5 ft 7 in Weight 175 lb 4 oz BMI 27.4 BP 122/80 Blood Pressure Location Lt brachial Position Sitting Respiration 16 Pulse 70 Pulse Source Pulse Oximeter Pulse Oximetry (%) 70 L Oxygen Delivery Method Room Air Intake Visit Reasons: Cervicalgia Intake Note: Patient comes in for initial visit was referred by [facility] [place] [facility]. Reports pain 8/10. Allergies pollen extracts Allergy (Intermediate, Verified 06/23/24 11:09) Itching codeine [CODEINE] Allergy (Unknown, Verified 06/23/24 11:09) ITCHINESS HPI Comments Details: Satish is very pleasant 63 years old gentleman who presents in my office with complains on cervicalgia pain neck. He reports that his pain is intractable 10/10, prevents him to do activities of daily living, prevents him to do good social interactions and severely limits his mobility. He describes inability to drive the car ability to see sideways when he walks on the street. He reports pain in the most lower portion of his neck without radiation into bilateral lower extremities. However he reports weakness of the bilateral hands edging supervisor and he reports weakness in bilateral arms and forearms. He reports that he was examined by neurosurgeon Dr. Del Angel and he was offered C7-T1 and C6-C7 ACDF to correct stenosis of the spinal canal and severe disc degeneration on those vertebra. However unfortunately after he came to balling head tender for clearance it was established that due to mid LAD 90% stenosis risk of surgery would be moderate to severe. Dr. Del Angel decided not to proceed with the surgery. He was referred to my office for pain management. Because of his pain he can not sleep normally can not do activities of daily living he can not take care of himself but he can not function normally. He is retired individual. In terms of tissue damage he describes his pain as dull, sore, hurting, aching, heavy, spreading, radiating, piercing sensation. He had multiple images of the neck MRIs available in the chart. Full reports see as below. He had multiple sessions of physical therapy and he had 10s unit in the past as an attempt to alleviate his pain. Unfortunately those were not very effective for his pain control. He received injections in the neck elsewhere which were not helping for his pain control. My understanding was that they were epidural steroid injections. His past medical history is significant for headaches fatigue coronary artery disease arthritis, his past surgical history significant for rotator cuff surgery coronary artery bypass surgery and jaw surgery. He denies smoking cigarettes drinking alcohol he drinks coffee tea and caffeinated beverages including soda and he denies recreational drugs. [facility] Medical History Hiatal hernia Schatzki's ring Arthritis Back pain Concussion Habitual snoring Bronchitis On beta jalyn at home Elevated cholesterol HTN (hypertension) Hx of compression fracture of spine Atherosclerotic cardiovascular disease Myocardial infarction Nonalcoholic fatty liver Diverticulosis Surgical History History of mandibular surgery History of esophagogastroduodenoscopy (EGD) H/O colonoscopy Hx of rotator cuff surgery Hx of cardiac catheterization S/P CABG (coronary artery bypass graft) Family History (Updated 06/08/24 @ 14:47 by Ethel Altman CMA) Mother Diabetes Melanoma Enlarged heart Father Cancer Heart attack Social History Housing: House Are you a primary childcare worker to a significant other at home: No Do you presently have visiting nurse or other home services: No Patient Tobacco Use Status: Never used Tobacco e-Cigarette/Vaping Use: Never Used service: No Current occupational status: employed Current occupational exposures/hazards: No Cognitive needs: No Hearing needs: No Vision needs: No Review of Systems Const Reports no additional complaints ENT Reports Normal hearing present Card Reports as per HPI Resp Reports no additional complaints GI Reports as per HPI Reports no additional complaints Musc Reports as per HPI Neuro Reports as per HPI, Reports Normal hearing present, Denies Abnormal speech present, Denies confusion and Denies Sensory deficit (Neuro) Psych Denies confusion Physical Exam Vital Signs: Last Vital Signs Pulse 70 06/23/24 11:10 Resp 16 06/23/24 11:10 BP 122/80 06/23/24 11:10 Pulse Ox 70 L 06/23/24 11:10 Oxygen Delivery Method Room Air 06/23/24 11:10 BMI result Body Mass Index 27.4 Const General: no acute distress; No confusion Orientation/consciousness: patient oriented x3 and No confusion Eyes General: appearance normal, both eyes and all related structures Pupils: Equal, round and reactive pupils present EOM: EOMs intact bilaterally Neck Other: Severely limited range of motion with the cervical spine. Spurling test is negative bilaterally. Lhermitte test is negative bilaterally. Valsalva maneuver is equivocal for pain increase. Chest Chest palpation & inspection: normal inspection of the chest Resp Effort & Inspection: normal respiratory effort, able to speak in complete sentences, normal respiratory pattern, no audible wheezes and no cough Cardio Jugular venous distension: no JVD GI Inspection: Yes normal to inspection Neuro General: patient oriented x3, gait normal and No confusion Cranial nerves: Yes CN's II-XII intact bilaterally, Yes Equal, round and reactive pupils present, Yes Normal hearing present and Yes Ability to bilaterally elevate shoulders present Speech: No Abnormal speech present Gait exam (Neuro): Normal gait present Motor exam (neuro): 5/5 motor strength present throughout Sensory Exam: No Sensory deficit (Neuro) Extrem General: No pedal edema Psych Speech and movement: Normal speech and movement present Affect: normal affect Attitude: cooperative Thought process: Normal thought process present Thought content: Normal thought content present Insight: Good insight present (Psych) Judgement: Good judgement present (Psych) Results Reviewed Results Reviewed: MR cervical spine wo con Accession Number(s): [id number] cc: Sam Hermosillo~ EXAMINATION: MR CERVICAL SPINE WITHOUT CONTRAST MR LUMBAR SPINE WITHOUT CONTRAST CLINICAL INFORMATION: Low back pain COMPARISON: None TECHNIQUE: MRI of the cervical and lumbar spine was obtained using routine sequences without contrast. FINDINGS: CERVICAL SPINE: The craniocervical junction is intact. Nonspecific sclerosis within the odontoid process. Reversal of the lower cervical lordosis centered at C7-T1 where there is mild chronic height loss and anterior wedging of the C7 greater than T1 vertebral bodies. Slight anterolisthesis at C2-C3, C4-C5 and C5-C6. No suspicious osseous lesion. Multilevel disc desiccation with severe C7-T1 and moderate C6-C7 disc height loss. Type I greater than type II Modic endplate change at C7-T1 and mild type I Modic endplate change at C6-C7 and C2-C3. There are multilevel degenerative changes with level by level detail as follows: C2-C3: Paracentral disc protrusion, bilateral uncovertebral spurring, and bilateral facet arthrosis, more pronounced and severe on the right with associated joint effusion and degenerative marrow edema. No spinal canal or left neural foraminal stenosis, noting an aberrant vascular loop of the left V2 vertebral artery coursing within the left neural foramen. Moderate to severe right neural foraminal stenosis. C3-C4: Disc osteophyte complex with bilateral uncovertebral joint hypertrophy and advanced hypertrophic bilateral facet arthrosis. No spinal canal stenosis. Mild to moderate right without left neural foraminal stenosis. C4-C5: Right greater than left uncovertebral spurring and bilateral facet arthrosis, more pronounced and severe on the right. No spinal canal stenosis. Severe right without left neural foraminal stenosis. C5-C6: Posterior disc uncovering, bilateral uncovertebral joint hypertrophy and bilateral facet arthrosis, more pronounced and severe on the right. No spinal canal stenosis. Severe right and moderate to severe left neural foraminal stenosis. C6-C7: Disc osteophyte complex with bilateral uncovertebral joint hypertrophy and bilateral facet arthrosis, more pronounced and severe on the right. No spinal canal stenosis. Moderate to severe left and mild to moderate right neural foraminal stenosis. C7-T1: Disc osteophyte complex with superimposed central disc extrusion with both superior and inferior migration, bilateral uncovertebral joint hypertrophy and bilateral facet arthrosis. Mild spinal canal stenosis, severe left and moderate right neural foraminal stenosis. The cervical spinal cord is normal in signal and morphology. No epidural fluid collection, mass, or hematoma. No significant abnormalities of the paraspinal musculature. The flow voids of the major cervical vessels are maintained. Retropharyngeal course of the mid right cervical ICA. The visualized intracranial structures are normal. Assessment & Plan Assessment & Plan (1) Intractable back pain: Code(s): M54.9 - Dorsalgia, unspecified Category: Medical (2) Spondylosis of cervical joint without myelopathy: Code(s): M47.812 - Spondylosis without myelopathy or radiculopathy, cervical region Category: Medical (3) Chronic pain syndrome: Code(s): G89.4 - Chronic pain syndrome Category: Medical Plan This patient is suffering from severe cervicalgia intractable cervical pain syndrome. Unfortunately he is not able to go for the neuro surgery because of the severe cardiac risk. He is very limited in his mobility and activities of daily living. In the situation I think appropriate approach would be to try sprint PNS in the attempt to alleviate his cervical pain. His condition is very severe and he reports today pain 10/10. I do not think that we are it luxury of waiting and performing diagnostic medial branches blocks for this patient. I will schedule him for bilateral right 1st and then left 2 weeks after sprint PNS. The location of the stimulation would be C5 potentially C4 potentially C6 bilateral location. If this sprint PNS would be not effective to control his pain I will offer this patient [employer] spinal cord stimulator trial. Patient Instructions: I here by testify that I spent 46 minutes in conversation with this patient as well as evaluating his diagnostic studies, evaluating prior cardiology records, evaluating prior neurosurgery records, planning his care and organizing this note. Coding Level of Care Code New Pt Level 4 (82190) Diagnoses Intractable back pain M54.9 Spondylosis of cervical joint without myelopathy M47.812 Chronic pain syndrome G89.4
[2024-06-23 11:10] VITALS: BP 122/80; PULSE 70; RESP 16; O2SAT 70; BMI 27.4
== END 2024-06-23 11:52 | disposition home or self-care (01) ==
PROVIDERS: PCP Nurse Practitioner Primary Care; Visit Provider Anesthesiology
DX: M54.9 Dorsalgia, unspecified (principal); M47.812 Spondylosis without myelopathy or radiculopathy, cervical region; G89.4 Chronic pain syndrome
CPT/HCPCS: 99204

== ENCOUNTER → 2024-06-23 10:52 | Outpatient (BNVA) | payer MEDICARE, MEDICAID, SELFPAY | PROVIDERS: PCP Nurse Practitioner Primary Care; Visit Provider Anesthesiology | DX: M47.812 Spondylosis without myelopathy or radiculopathy, cervical region (principal); M54.9 Dorsalgia, unspecified; G89.4 Chronic pain syndrome | CPT/HCPCS: 99202 ==

== ENCOUNTER 2024-08-16 11:17 | Outpatient (AMB) | payer MEDICARE, MEDICAID, SELFPAY ==
--- NOTE | 2024-08-16 11:25 | A.OFFVIS_ITS ---
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 Accompanied by: Self / Same As Patient Allergies pollen extracts Allergy (Intermediate, Verified 08/16/24 11:48) Itching codeine [CODEINE] Allergy (Unknown, Verified 08/16/24 11:48) ITCHINESS Medication List - Last Reconciled 08/16/24 by VIPIN Kwon acetaminophen ER (Tylenol Arthritis Pain) 650 mg PO Q8H PRN alfuzosin ER 10 mg PO BEDTIME 30 days aspirin (Adult Low Dose Aspirin) 81 mg PO BID atorvastatin 80 mg PO BEDTIME cholecalciferol (vitamin D3) 50 mcg PO DAILY cyclobenzaprine 10 mg PO TID PRN levalbuterol tartrate 45 mcg/actuation (Xopenex HFA) 2 puffs inhalation Q4-6H PRN lisinopril 20 mg PO DAILY magnesium 250 mg PO DAILY metoprolol succinate ER 25 mg PO DAILY nitroglycerin 0.4 mg sublingual Q5M PRN omeprazole 20 mg PO DAILY HPI Comments Details: Satish is a very pleasant 63-year-old male patient of Dr. Hermosillo. He has a past medical history of hiatal hernia, arthritis, back pain, bronchitis, hypercholesteremia, hypertension, compression fracture of the spine, ACD, myocardial infarction, nonalcoholic fatty liver, and diverticulosis. He presents to the office today for follow-up of his lower urinary tract symptoms. In discussion with the patient today he reports he started alfuzosin however felt this caused symptoms of GERD and therefore stopped taking the medication. However, he also feels lower urinary tract symptoms have since semi resolved and have been manageable with lifestyle modifications he has made. Previous workup has included a retroperitoneal ultrasound noting bilateral kidneys with no nephrolithiasis or hydronephrosis. 2.3 cm right simple cyst in the lower pole for which no imaging follow-up is recommended per radiology report. The bladder is partially distended. Bilateral ureteral jets are not demonstrated. Pre void bladder volume is approximately 90 mL. Postvoid bladder volume is approximately 5 mL. The prostate measures 10 mL. He had previously trialed Flomax without any benefit. During last office visit referral was submitted for sleep study for further assessment evaluation however in discussion with the patient today he reports having canceled as he does not feel any bothersome urinary issues or concerns at this time. PSA 12/24 0.8. In office urinalysis results reviewed with the patient today. PVR 74 mL. He denies incontinence, hematuria, dysuria, foul smelling urine, flank pain, fever, and or chills. He otherwise offers no other issues or concerns at this time. [facility] Medical History Hiatal hernia Schatzki's ring Arthritis Back pain Concussion Habitual snoring Bronchitis On beta jalyn at home Elevated cholesterol HTN (hypertension) Hx of compression fracture of spine Atherosclerotic cardiovascular disease Myocardial infarction Nonalcoholic fatty liver Diverticulosis Surgical History History of mandibular surgery History of esophagogastroduodenoscopy (EGD) H/O colonoscopy Hx of rotator cuff surgery Hx of cardiac catheterization S/P CABG (coronary artery bypass graft) Family History Mother Diabetes Melanoma Enlarged heart Father Cancer Heart attack Social History Housing: House Are you a primary rehab care assistant to a significant other at home: No Do you presently have visiting nurse or other home services: No Patient Tobacco Use Status: Never used Tobacco e-Cigarette/Vaping Use: Never Used service: No Current occupational status: employed Current occupational exposures/hazards: No Cognitive needs: No Hearing needs: No Vision needs: No Review of Systems Const Reports no additional complaints Eyes Reports no additional complaints ENT Reports no additional complaints Card Reports as per HPI Resp Reports no additional complaints GI Reports as per HPI Reports as per HPI Musc Reports as per HPI Neuro Reports no additional complaints Psych Reports no additional complaints Endo Reports no additional complaints John/Lymph Reports no additional complaints Aller/Immun Reports no additional complaints Physical Exam Const General: cooperative, healthy appearing, comfortable, no acute distress, well developed, alert and awake Orientation/consciousness: patient oriented x3 Limitations: no limitations HEENT Head: Yes normal to inspection, Yes normocephalic and Yes atraumatic Ears: hearing grossly normal bilaterally Eyes General: appearance normal, both eyes and all related structures Neck Neck: Yes normal visual inspection and Yes trachea midline Chest Chest palpation & inspection: normal inspection of the chest Resp Effort & Inspection: normal respiratory effort and able to speak in complete sentences Cardio Rate: regular rate GI Inspection: Yes normal to inspection General: Yes no CVA tenderness Back/Spine/Pelvis Back: no CVA tenderness Skin General skin exam: no rashes or lesions noted Neuro General: patient oriented x3 Extrem General: Yes normal to inspection Psych Appearance: grossly normal and well kempt Mental Status: mental status grossly normal Speech and movement: Normal speech and movement present and Clear speech present Affect: normal affect Attitude: cooperative Thought process: Normal thought process present Thought content: Normal thought content present Insight: Fair insight present (Psych) Judgement: Fair judgement present (Psych) Office Procedures Post Void Residual Post Residual Void Post Void Residual (PVR): 74 [id number] Void Residual by ultrasound Results AMB Urinalysis, Automated UA Leukoctes 0 Chioma/uL Last Edit by LIKECHARITY on 08/16/24 11:42 UA Nitrite Last Edit by LIKECHARITY on 08/16/24 11:42 UA Urobilinogen 0.2 mg/dL Last Edit by LIKECHARITY on 08/16/24 11:42 UA Protein 0 mg/dL Last Edit by LIKECHARITY on 08/16/24 11:42 UA pH 6.0 Last Edit by LIKECHARITY on 08/16/24 11:42 UA Blood 0 Leonard/uL Last Edit by LIKECHARITY on 08/16/24 11:42 UA Specific Monroe 1.010 Last Edit by LIKECHARITY on 08/16/24 11:42 UA Ketone Last Edit by LIKECHARITY on 08/16/24 11:42 UA Bilirubin 0 mg/dL Last Edit by LIKECHARITY on 08/16/24 11:42 UA Glucose 0 mg/dL Last Edit by LIKECHARITY on 08/16/24 11:42 Results Reviewed Results Reviewed: Laboratory Last Values Urine pH (Auto) 6.0 08/16/24 11:31 Specific [place] (Auto) 1.010 08/16/24 11:31 Urine Protein (Auto) 0 mg/dL 08/16/24 11:31 Glucose (UA)(Auto) 0 mg/dL 08/16/24 11:31 Urine Blood (Auto) 0 Leonard/uL 08/16/24 11:31 Urine Bilirubin (Auto) 0 mg/dL 08/16/24 11:31 Urine Urobilinogen (Auto) 0.2 mg/dL 08/16/24 11:31 Leukocyte Esterase (Auto) 0 Chioma/uL 08/16/24 11:31 Assessment & Plan Assessment & Plan (1) Urinary dribbling: Code(s): N39.43 - Post-void dribbling Category: Medical (2) Urinary frequency: Code(s): R35.0 - Frequency of micturition Category: Medical (3) Weak urinary stream: Code(s): R39.12 - Poor urinary stream Category: Medical (4) Nocturia: Comment: Will refer patient to Urology. Code(s): R35.1 - Nocturia Category: Medical Plan In office urinalysis results reviewed with the patient today; as noted above. PVR 74 mL Patient currently denies any bothersome urinary issues or concerns he would like to continue with surveillance monitoring at this time. He is happy with his current voiding parameters. Will discontinue alfuzosin And cancel sleep study. Discussed bladder triggers/irritants. PSA in 6 months Follow-up in 6 months with PSA; or sooner with any issues, concerns, and or questions. Orders: Orders AMB Post Void Residual by ultrasound Today R35.0 - Frequency of micturition Prostate Specific Antigen 6 Months N40.0 - Benign prostatic hyperplasia without lower urinary tract symptoms AMB Urinalysis Automated Today Z13.9 - Encounter for screening, unspecified Medications: Discontinued alfuzosin ER Take before bedtime Discontinued Reason: No Longer Medically Relevant 10 mg PO BEDTIME 30 days 30 tabs 1RF N32.0 - Bladder-neck obstruction, N40.1 - Benign prostatic hyperplasia with lower urinary tract symptoms, R33.9 - Retention of urine, unspecified, R35.1 - Nocturia, R39.12 - Poor urinary stream Patient Instructions: The patient had an opportunity to ask questions regarding the treatment plan. All questions were answered. Physical exam, labs, and imaging were discussed and reviewed in detail. As well as risks, benefits, and discussion of treatment choices. No major barriers to understanding were identified. The patient expressed understanding and agreement with the above treatment plan. The patient was made aware they should contact our office by phone for worsening of their current condition, the appearance of new symptoms, or with any questions or concerns. Compliance is encouraged with any medications and follow up testing that is ordered. It is a privilege to be allowed the opportunity to participate in? your urological care.? Again, if you have any questions or concerns If you have any questions or concerns please do not hesitate to contact me. The office is [phone]. This note is constructed using voice recognition software. While every effort has been made to ensure accuracy compliance quality performance analyst errors may have been included. Yours sincerely, VIPIN Kwon Coding Level of Care Code Est Pt Level 3 (72664) Complex EM visit Add On G2211 Diagnoses Urinary dribbling N39.43 Urinary frequency R35.0 Weak urinary stream R39.12 Nocturia R35.1 CPT Codes Post Residual Void - PVR CPT Code: [id number]-[id number] Void Residual by ultrasound ([id number])
== END 2024-08-16 12:08 | disposition home or self-care (01) ==
PROVIDERS: PCP Nurse Practitioner Primary Care; Visit Provider Nurse Practitioner Family
DX: N39.43 Post-void dribbling (principal); R35.0 Frequency of micturition; R39.12 Poor urinary stream; R35.1 Nocturia; Z13.9 Encounter for screening, unspecified
CPT/HCPCS: 99213; G2211

== ENCOUNTER → 2024-08-16 11:17 | Outpatient (BNVA) | payer MEDICARE, MEDICAID, SELFPAY | PROVIDERS: PCP Nurse Practitioner Primary Care; Visit Provider Nurse Practitioner Family | DX: N40.1 Benign prostatic hyperplasia with lower urinary tract symptoms (principal); R35.0 Frequency of micturition; R35.1 Nocturia; N39.43 Post-void dribbling; R39.12 Poor urinary stream; R33.8 Other retention of urine | CPT/HCPCS: 51798; 81003; 99212 ==

== ENCOUNTER 2024-09-08 08:54 | Outpatient (AMB) | payer MEDICARE, MEDICAID, SELFPAY ==
[2024-09-08 09:00] VITALS: BP 122/80; PULSE 71; O2SAT 96; BMI 27.9
--- NOTE | 2024-09-08 09:00 | MHC.PC.OV ---
Vital Signs 09/08/24 09:00 Height 5 ft 7 in Weight 178 lb BMI 27.9 BP 122/80 Blood Pressure Location Lt brachial Position Sitting Pulse 71 Pulse Source Pulse Oximeter Pulse Oximetry (%) 96 Oxygen Delivery Method Room Air Intake Visit Reasons: transfer from [facility] Intake Note: Pt is here today for a follow up visit transfer from [facility]. Allergies pollen extracts Allergy (Intermediate, Verified 09/08/24 09:05) Itching codeine [CODEINE] Allergy (Unknown, Verified 09/08/24 09:05) ITCHINESS Medication List - Last Reconciled 09/08/24 by Angelica Lo MD acetaminophen ER (Tylenol Arthritis Pain) 650 mg PO Q8H PRN aspirin (Adult Low Dose Aspirin) 81 mg PO BID atorvastatin 80 mg PO BEDTIME cholecalciferol (vitamin D3) 50 mcg PO DAILY levalbuterol tartrate 45 mcg/actuation (Xopenex HFA) 2 puffs inhalation Q4-6H PRN lisinopril 20 mg PO DAILY magnesium 250 mg PO DAILY metoprolol succinate ER 25 mg PO DAILY nitroglycerin 0.4 mg sublingual Q5M PRN omeprazole 20 mg PO DAILY Tobacco use date assessed: 09/08/24 Fall risk assessment: No Falls in past year Last assessed Fall Risk: 09/08/24 Dental Screening Dental Screen Date: 09/08/24 Did you have a dental visit in the last 12 months?: Yes Did you have a dental problem in the last 6 months where you did not have access to dental care?: No Was dental information given to patient?: Patient has dentist HPI transfer from [facility] HPI Details Patient presents for the follow-up. He reports intermittent dyspnea on exertion and chest tightness chronic postnasal drip worse when exposed to cats. Patient denies nocturnal wheezing or chest tightness. He has been using Xopenex a few times a week with good relief. Patient denies history of smoking but reports frequent upper respiratory infections and sinusitis. 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 Decision was made to medically treat the patient but he is looking for 2nd opinion. He denies angina symptoms. 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 [facility] Medical History (Updated 09/08/24 @ 09:59 by Angelica Lo MD) Hiatal hernia Schatzki's ring Arthritis Back pain Concussion HTN (hypertension) Hx of compression fracture of spine Atherosclerotic cardiovascular disease Myocardial infarction Nonalcoholic fatty liver Diverticulosis Surgical History (Updated 09/08/24 @ 09:59 by Angelica Lo MD) History of mandibular surgery History of esophagogastroduodenoscopy (EGD) H/O colonoscopy Hx of rotator cuff surgery Hx of cardiac catheterization S/P CABG (coronary artery bypass graft) Family History Mother Diabetes Melanoma Enlarged heart Father Cancer Heart attack Social History Housing: House Are you a primary health care social worker to a significant other at home: No Do you presently have visiting nurse or other home services: No Patient Tobacco Use Status: Never used Tobacco e-Cigarette/Vaping Use: Never Used service: Yes Current occupational status: employed Current occupational exposures/hazards: No Cognitive needs: No Hearing needs: No Vision needs: No Questionnaire PHQ-9 Over the last 2 weeks, how often have you been bothered by any of the following problems? 1. Little interest or pleasure in doing things: not at all 2. Feeling down, depressed, or hopeless: not at all 3. Trouble falling or staying asleep, or sleeping too much: not at all 4. Feeling tired or having little energy: not at all 5. Poor appetite or overeating: not at all 6. Feeling bad about yourself - or that you are a failure or have let yourself or your family down: not at all 7. Trouble concentrating on things, such as reading the newspaper or watching television: not at all 8. Moving or speaking so slowly that other people could have noticed. Or the opposite - being so fidgety or restless that you have been moving around a lot more than usual: not at all 9. Thoughts that you would be better off or of hurting yourself in some way: not at all Total score: 0 Depression Screening Interpretation: Negative Depression Screening Done: Yes 02669 - PHQ-9 Billing: Yes Source: Developed by Radha NapierW. Leonid, Bro Damian and colleagues, with an educational altaf from [employer]. Thrive Questionnaire Date Thrive assessed: 09/08/24 I am a: Patient What is your living situation today?: I have a steady place to live Within the past 12 months, did the food you bought not last and you didn't have the money to get more?: Often true Within the past 12 months, did you worry whether your food would run out before you got money to buy more?: Often true Do you have trouble paying for medicines?: No Do you have trouble getting transportation to medical appointments?: Yes Do you have trouble paying your heating and electricity bill?: Yes Do you have trouble taking care of your child, family member or friend?: No Do you have trouble with day-to-day activities such as bathing, preparing meals, shopping, managing finances, etc.?: No Are you interested in more education?: No Please select the resources that you would like help with: Housing/Custodial, Food and Transportation Currently or been in a relationship where the following occur: No concerns reported THRIVE Score: 4 AUDIT C Alcohol Use Questionnaire (AUDIT-C) 1. How often do you have a drink containing alcohol?: Never 3. How often do you have six or more drinks on one occasion?: Never Total Score: 0 IVONNE-7 AMB Questionnaire IVONNE-7 Date IVONNE - 7 assessed: 09/08/24 Feeling nervous, anxious, or on edge: 1 = Several days Not being able to stop or control worryin = Several days Worrying too much about different things: 1 = Several days Trouble relaxin = Several days Being so restless that it is hard to sit still: 1 = Several days Becoming easily annoyed or irritable: 3 = Nearly every day Feeling afraid as if something awful might happen: 1 = Several days Total IVONNE-7 score (0-4 normal; 5-9 mild; 10-14 moderate; 15-21 severe): 9 Source: Developed by Drs. Satish Morales, Radha Jaquez, Bro Damian and colleagues, with an educational altaf from [employer]. IVONNE-7 Assessment Billing IVONNE-7 Assessment Tool: IVONNE-7 Assessment 91490 Review of Systems Const All systems reviewed & are unremarkable except as noted in HPI and below ENT Reports no additional complaints Card Reports no additional complaints Resp Reports no additional complaints GI Reports no additional complaints Reports no additional complaints Physical exam (Primary Care) Vital Signs: Last Vital Signs Pulse 71 09/08/24 09:00 BP 122/80 09/08/24 09:00 Pulse Ox 96 09/08/24 09:00 Oxygen Delivery Method Room Air 09/08/24 09:00 BMI result Body Mass Index 27.9 Tobacco/Smoking Status: Tobacco use Status Tobacco use date assessed 09/08/24 09/08/24 09:07 Patient Tobacco Use Status Never used Tobacco 09/08/24 09:07 e-Cigarette/Vaping Use Never Used 09/08/24 09:00 PHQ-9: PHQ-9 Score PHQ-9: Total score 0 09/08/24 09:46 Depression Screening Interpretation: Negative Thrive Assessment: Date of Thrive Assessment Date Thrive assessed 09/08/24 09/08/24 09:07 Currently or been in a relationship where the following occur: No concerns reported Const General: no acute distress HENMT Head: Yes normal to inspection Eyes General: appearance normal, both eyes and all related structures Neck Neck: Yes no lymphadenopathy and Yes supple Resp Effort & Inspection: normal respiratory effort Auscultation: wheezes and diminished lung sounds Cardio Rhythm: regular rhythm Heart sounds: S1 normal heart sound present and S2 normal heart sound present GI Inspection: Yes normal to inspection Palpation (GI): Soft to palpation Percussion: Yes normal to percussion Auscultation: normal bowel sounds Coding Level of Care Code Est Pt Level 4 (85719) Diagnoses Hyperlipidemia E78.5 Prediabetes R73.03 Stenosis of left anterior descending (LAD) artery I25.10 Asthma J45.909 Gastroesophageal reflux disease, unspecified whether esophagitis present K21.9 Esophagitis presence: esophagitis presence not specified Status post aorto-coronary artery bypass graft Z95.1 H/O colonoscopy Z98.890 Additional Codes IVONNE-7 Assessment Billing - IVONNE-7 Assessment Tool: IVONNE-7 Assessment 69158 ([id number]) Assessment & Plan Assessment & Plan (1) Hyperlipidemia: Code(s): E78.5 - Hyperlipidemia, unspecified Category: Medical Plan: Continue high dose statin check lipid profile today if the LDL is not at the goal of less than 70 Zetia will be added (2) Prediabetes: Code(s): R73.03 - Prediabetes Category: Medical Plan: Check A1c ADA diet discussed with the patient. (3) Stenosis of left anterior descending (LAD) artery: Comment: 90 %, cardiac cath, 2023 Code(s): I25.10 - Atherosclerotic heart disease of [place] coronary artery without angina pectoris Category: Medical Plan: Referred to [facility] for 2nd opinion (4) Asthma: Code(s): J45.909 - Unspecified asthma, uncomplicated Category: Medical Plan: Start loratadine for external allergies and Breo 100/25 once a day. Patient was advised to use Xopenex as needed. He will be referred for PFTs and chest x-ray (5) GERD (gastroesophageal reflux disease): Comment: EGD 03/2024 moderate hiatal hernia, nonobstructing Schatzki ring gastric chronic inflammation and erosion, bx negative for intestinal metaplasia or dysplasia Code(s): K21.9 - Gastro-esophageal reflux disease without esophagitis Category: Medical Qualifiers: Esophagitis presence: esophagitis presence not specified Qualified Code(s): K21.9 - Gastro-esophageal reflux disease without esophagitis Plan: Symptoms not controlled on omeprazole change to pantoprazole 40 mg QD (6) Status post aorto-coronary artery bypass graft: Comment: 2018 in [place] Code(s): Z95.1 - Presence of aortocoronary bypass graft Category: Surgical Plan: REFERRED TO [facility] cardiology (7) H/O colonoscopy: Comment: 03/2024 Dr. Lisa, negative repeat in 5 years due to history of polyps Code(s): Z98.890 - Other specified postprocedural states Category: Surgical Plan: Follow-up with GI Orders: Orders Lipid Panel Today E78.5 - Hyperlipidemia, unspecified, I25.10 - Atherosclerotic heart disease of [place] coronary artery without angina pectoris, R73.03 - Prediabetes Complete Blood Count Auto Diff Today E78.5 - Hyperlipidemia, unspecified, I25.10 - Atherosclerotic heart disease of [place] coronary artery without angina pectoris, R73.03 - Prediabetes Hemoglobin A1c Today R73.03 - Prediabetes Comprehensive [place]. Panel Fast Today E78.5 - Hyperlipidemia, unspecified, I25.10 - Atherosclerotic heart disease of [place] coronary artery without angina pectoris, R73.03 - Prediabetes PFT pulmonary function test Today J45.909 - Unspecified asthma, uncomplicated XR chest 2V Today J45.909 - Unspecified asthma, uncomplicated Referrals Cardiology Referral I25.10 - Atherosclerotic heart disease of [place] coronary artery without angina pectoris Medications: New pantoprazole 40 mg PO DAILY 90 tabs 0RF loratadine 10 mg PO DAILY 90 tabs 3RF Breo Ellipta 100-25 mcg/dose (fluticasone furoate-vilanterol) 1 inh inhalation DAILY 60 ea 3RF NS Refilled nitroglycerin do not exceed 3 doses per episode 0.4 mg sublingual Q5M PRN 30 tabs 0RF chest pain
== END 2024-09-08 15:10 | disposition home or self-care (01) ==
PROVIDERS: PCP Nurse Practitioner Primary Care; Visit Provider Internal Medicine
DX: E78.5 Hyperlipidemia, unspecified (principal); R73.03 Prediabetes; I25.10 Atherosclerotic heart disease of native coronary artery without angina pectoris; J45.909 Unspecified asthma, uncomplicated; K21.9 Gastro-esophageal reflux disease without esophagitis; Z95.1 Presence of aortocoronary bypass graft; Z98.890 Other specified postprocedural states

== ENCOUNTER → 2024-09-08 08:54 | Outpatient (BNVA) | payer MEDICARE, MEDICAID, SELFPAY | PROVIDERS: PCP Nurse Practitioner Primary Care; Visit Provider Internal Medicine ==

== ENCOUNTER 2024-09-08 09:42 | Outpatient (REF) | payer MEDICARE, MEDICAID, SELFPAY ==
[2024-09-08 13:29] LABS: MANUAL DIFF FLAG NO
[2024-09-08 13:56] LABS: Basophils Percent Auto 0.5 % (0-2); Eosinophils Absolute Auto 0.2 X10*3/uL (0.0-0.4); Eosinophils Percent Auto 2.1 % (0-4); Hematocrit 42.3 % (42.0-52.0); Hemoglobin 14.2 g/dl (14.0-18.0); Imm Gran Abs Auto 0.04 X10*3/uL (0.00-0.03); Imm Gran Pct Auto 0.5 % (0.0-0.4); Lymphocytes Absolute Auto 1.9 X10*3/uL (1.2-4.9); Mean Corpuscular HGB Conc 33.6 g/dl (31.0-36.0); Mean Corpuscular Hemoglobin 29.9 pg (27.0-33.0); Mean Corpuscular Volume 89.1 fL (80.0-98.0); Mean Platelet Volume 10.8 fL (9.4-12.4); Monocytes Absolute Auto 0.9 X10*3/uL (0.1-1.2); Monocytes Percent Auto 11.2 % (2-11); Neutrophils Absolute Auto 4.6 x10*3/uL (2.0-8.3); Neutrophils Percent Auto 60.7 % (45-73); Platelet Count 232 X10*3/uL (160-400); Red Blood Count 4.75 X10*6/uL (4.60-5.80); Red Cell Distribution Width 13.6 % (11.0-16.0); White Blood Count 7.6 X10*3/uL (4.8-10.8)
[2024-09-08 14:07] LABS: Alanine Aminotransferase 31 U/L (0-40); Albumin Level 4.4 g/dL (3.5-5.0); Alkaline Phosphatase 77 U/L (39-117); Anion Gap 12 (12-20); Aspartate Amino Transferase 24 U/L (5-37); Bilirubin Total 0.7 mg/dL (0.0-1.0); Blood Urea Nitrogen 20 mg/dL (9-16); Calcium 9.8 mg/dL (8.4-10.2); Carbon Dioxide 27 mmol/L (22-29); Chloride 105 mmol/L (96-108); Cholesterol 134 mg/dL (<200); Estimated Glomerular Filt Rate > 60; Glucose Fasting 117 mg/dL (60-99); HDL Cholesterol 44 mg/dL (>40); LDL Cholesterol Calculated 70 mg/dL (<100); Potassium 4.6 mmol/L (3.3-5.1); Sodium 139 mmol/L (135-145); Total Protein 7.1 g/dL (6.5-8.0); Triglycerides 102 mg/dL (<150)
[2024-09-08 14:08] LABS: Estimated Average Glucose 120 mg/dL; Hemoglobin A1c % 5.8 % (<6.0); Total Hemoglobin (HGBA1C) 3461.5865 umol/L
== END 2024-09-08 09:43 | disposition home or self-care (01) ==
LOC: HO.HMGCLDS 09:42
PROVIDERS: PCP Internal Medicine; Visit Provider Internal Medicine
DX: E78.5 Hyperlipidemia, unspecified (principal); R73.03 Prediabetes; I25.10 Atherosclerotic heart disease of native coronary artery without angina pectoris; J45.909 Unspecified asthma, uncomplicated; K21.9 Gastro-esophageal reflux disease without esophagitis; Z95.1 Presence of aortocoronary bypass graft; Z98.890 Other specified postprocedural states
CPT/HCPCS: 36415; 80053; 80061; 83036; 85025; 96127; 99212

== ENCOUNTER 2024-10-07 12:17 | Outpatient (AMB) | payer MEDICARE, MEDICAID, SELFPAY ==
[2024-10-07 12:21] VITALS: BP 124/84; PULSE 71; O2SAT 95; BMI 28.8
--- NOTE | 2024-10-07 12:21 | MHC.PC.OV ---
Vital Signs 10/07/24 12:21 Height 5 ft 7 in Weight 184 lb BMI 28.8 BP 124/84 Blood Pressure Location Lt brachial Position Sitting Pulse 71 Pulse Source Pulse Oximeter Pulse Oximetry (%) 95 Oxygen Delivery Method Room Air Intake Visit Reasons: 1 month follow up Intake Note: Pt is here today for 1 month follow up visit. Allergies pollen extracts Allergy (Intermediate, Verified 10/07/24 12:22) Itching codeine [CODEINE] Allergy (Unknown, Verified 10/07/24 12:22) ITCHINESS Medication List - Last Reconciled 10/07/24 by Angelica Lo MD acetaminophen ER (Tylenol Arthritis Pain) 650 mg PO Q8H PRN aspirin (Adult Low Dose Aspirin) 81 mg PO BID atorvastatin 80 mg PO BEDTIME Breo Ellipta 100-25 mcg/dose (fluticasone furoate-vilanterol) 1 inh inhalation DAILY NS cholecalciferol (vitamin D3) 50 mcg PO DAILY levalbuterol tartrate 45 mcg/actuation (Xopenex HFA) 2 puffs inhalation Q4-6H PRN lisinopril 20 mg PO DAILY loratadine 10 mg PO DAILY magnesium 250 mg PO DAILY metoprolol succinate ER 25 mg PO DAILY montelukast 10 mg PO BEDTIME nitroglycerin 0.4 mg sublingual Q5M PRN pantoprazole 40 mg PO DAILY Tobacco use date assessed: 09/08/24 Dental Screening Dental Screen Date: 09/08/24 HPI 1 month follow up HPI Details Patient presents for the follow-up. Asthma is better controlled on Breo patient uses Xopenex once or twice a week only. He still reports symptoms of allergic rhinitis and eye irritation especially when exposed to the cats. Hypertension and hyperlipidemia are controlled on medications. Patient has an appointment with [facility] in December. He has been physically active and denies exertional angina. [facility] Medical History (Updated 10/07/24 @ 13:13 by Angelica Lo MD) Hiatal hernia Schatzki's ring Arthritis Back pain Concussion HTN (hypertension) Hx of compression fracture of spine Atherosclerotic cardiovascular disease Myocardial infarction Nonalcoholic fatty liver Diverticulosis Surgical History (Updated 09/08/24 @ 09:59 by Angelica Lo MD) History of mandibular surgery History of esophagogastroduodenoscopy (EGD) H/O colonoscopy Hx of rotator cuff surgery Hx of cardiac catheterization S/P CABG (coronary artery bypass graft) Family History Mother Diabetes Melanoma Enlarged heart Father Cancer Heart attack Social History Housing: House Are you a primary residential child care counselor to a significant other at home: No Do you presently have visiting nurse or other home services: No Patient Tobacco Use Status: Never used Tobacco e-Cigarette/Vaping Use: Never Used service: Yes Current occupational status: employed Current occupational exposures/hazards: No Cognitive needs: No Hearing needs: No Vision needs: No Questionnaire Thrive Questionnaire Date Thrive assessed: 09/08/24 I am a: Patient What is your living situation today?: I have a steady place to live Within the past 12 months, did the food you bought not last and you didn't have the money to get more?: Often true Within the past 12 months, did you worry whether your food would run out before you got money to buy more?: Often true Do you have trouble paying for medicines?: No Do you have trouble getting transportation to medical appointments?: Yes Do you have trouble paying your heating and electricity bill?: Yes Do you have trouble taking care of your child, family member or friend?: No Do you have trouble with day-to-day activities such as bathing, preparing meals, shopping, managing finances, etc.?: No Are you currently unemployed and looking for a job?: No Are you interested in more education?: No Currently or been in a relationship where the following occur: No concerns reported THRIVE Score: 4 IVONNE-7 AMB Questionnaire IVONNE-7 Date IVONNE - 7 assessed: 09/08/24 Source: Developed by Drs. Satish Morales, Radha Jaquez, Bro Damian and colleagues, with an educational altaf from [employer]. Review of Systems Const All systems reviewed & are unremarkable except as noted in HPI and below ENT Reports no additional complaints Card Reports no additional complaints Resp Reports no additional complaints GI Reports no additional complaints Reports no additional complaints Physical exam (Primary Care) Vital Signs: Last Vital Signs Pulse 71 10/07/24 12:21 BP 124/84 10/07/24 12:21 Pulse Ox 95 10/07/24 12:21 Oxygen Delivery Method Room Air 10/07/24 12:21 BMI result Body Mass Index 28.8 Tobacco/Smoking Status: Tobacco use Status Tobacco use date assessed 09/08/24 10/07/24 12:25 Patient Tobacco Use Status Never used Tobacco 10/07/24 12:25 e-Cigarette/Vaping Use Never Used 10/07/24 12:25 Thrive Assessment: Date of Thrive Assessment Date Thrive assessed 09/08/24 10/07/24 12:25 Currently or been in a relationship where the following occur: No concerns reported Const General: no acute distress HENMT Ears: hearing grossly normal bilaterally Eyes General: appearance normal, both eyes and all related structures Resp Effort & Inspection: normal respiratory effort Auscultation: clear to auscultation bilaterally Cardio Rhythm: regular rhythm Heart sounds: S1 normal heart sound present and S2 normal heart sound present GI Inspection: Yes normal to inspection Palpation (GI): Soft to palpation Percussion: Yes normal to percussion Coding Level of Care Code Est Pt Level 4 (11932) Complex EM visit Add On G2211 Diagnoses Allergic rhinitis J30.9 Hyperglycemia R73.9 Asthma J45.909 Stenosis of left anterior descending (LAD) artery I25.10 Hyperlipidemia E78.5 HTN (hypertension) I10 Assessment & Plan Assessment & Plan (1) Allergic rhinitis: Code(s): J30.9 - Allergic rhinitis, unspecified Category: Medical Plan: Continue Claritin and add montelukast, referred to robotics application engineer for allergy testing (2) Hyperglycemia: Code(s): R73.9 - Hyperglycemia, unspecified Category: Medical Plan: A1c is 5.8, ADA diet increase physical activity discussed with the patient (3) Asthma: Code(s): J45.909 - Unspecified asthma, uncomplicated Category: Medical Plan: Continue Breo and add montelukast (4) Stenosis of left anterior descending (LAD) artery: Comment: 90 %, cardiac cath, 2023 Code(s): I25.10 - Atherosclerotic heart disease of [place] coronary artery without angina pectoris Category: Medical Plan: Patient will see Cardiology at [facility] (5) Hyperlipidemia: Code(s): E78.5 - Hyperlipidemia, unspecified Category: Medical Plan: Continue statin (6) HTN (hypertension): Code(s): I10 - Essential (primary) hypertension Category: Medical Plan: Continue current medications , follow-up in 3 months with a fasting labs before Orders: Orders Complete Blood Count Auto Diff 3 Months J30.9 - Allergic rhinitis, unspecified, R73.9 - Hyperglycemia, unspecified Hemoglobin A1c 3 Months J30.9 - Allergic rhinitis, unspecified, R73.9 - Hyperglycemia, unspecified Comprehensive [place]. Panel Fast 3 Months J30.9 - Allergic rhinitis, unspecified, R73.9 - Hyperglycemia, unspecified Lipid Panel 3 Months J30.9 - Allergic rhinitis, unspecified, R73.9 - Hyperglycemia, unspecified Referrals Allergy & Immunology Referral J30.9 - Allergic rhinitis, unspecified Medications: New montelukast 10 mg PO BEDTIME 90 tabs 1RF
== END 2024-10-07 12:50 | disposition home or self-care (01) ==
LOC: HO.HMCC 12:18
PROVIDERS: PCP Internal Medicine; Visit Provider Internal Medicine
DX: J30.9 Allergic rhinitis, unspecified (principal); R73.9 Hyperglycemia, unspecified; J45.909 Unspecified asthma, uncomplicated; I25.10 Atherosclerotic heart disease of native coronary artery without angina pectoris; E78.5 Hyperlipidemia, unspecified; I10 Essential (primary) hypertension

== ENCOUNTER → 2024-10-07 12:17 | Outpatient (BNVA) | payer MEDICARE, MEDICAID, SELFPAY | PROVIDERS: PCP Internal Medicine; Visit Provider Internal Medicine | DX: R73.9 Hyperglycemia, unspecified (principal); J45.909 Unspecified asthma, uncomplicated; I25.10 Atherosclerotic heart disease of native coronary artery without angina pectoris; E78.5 Hyperlipidemia, unspecified; I10 Essential (primary) hypertension | CPT/HCPCS: 99212 ==

== ENCOUNTER 2024-11-01 08:09 | Outpatient (AMB) | payer MEDICARE, MEDICAID, SELFPAY ==
--- NOTE | 2024-11-01 08:34 | MHC.OFFWIV ---
Intake Vital Signs 11/01/24 08:35 Weight 180 lb BP 124/90 H Blood Pressure Location Lt brachial Position Sitting Pulse 71 Pulse Source Pulse Oximeter Temp 98.2 F Temp Source Oral Pulse Oximetry (%) 97 Oxygen Delivery Method Room Air Intake Visit Reasons: EP throat/chest concerns Intake Note: Patient here for sore throat and chest congestion that has been present for about 3 weeks. Patient Tobacco Use Status: Never used Tobacco Allergies pollen extracts Allergy (Intermediate, Verified 11/01/24 08:36) Itching codeine [CODEINE] Allergy (Unknown, Verified 11/01/24 08:36) ITCHINESS Do you need a note to return to daycare/school/sports/work: No HPI HPI Comments History of Present Illness Details History of Present Illness The patient is a 64-year-old male presenting with symptoms of a sore throat and chest congestion persisting for approximately three weeks. The patient describes a sensation of a coating within the throat and frequent coughing productive of green sputum. He reports concurrent sinus congestion, occasionally accompanied by scant blood in the throat, and notes this sensation to be persistent and troubling. The patient denies experiencing fever, shortness of breath, chest pain, nausea, vomiting, or diarrhea. A history of asthma is noted, for which the patient utilizes a maintenance inhaler once a day, supplemented by a jo-colored rescue inhaler used sporadically when necessary. The patient reports a past deviated septum presenting challenges with nasal spray use. He highlights attempts at alleviating symptoms through peroxide and water gargles and internet-recommended home remedies without amelioration. Physical Exam General: Cooperative, healthy appearing, comfortable and no acute distress Orientation/consciousness: Patient oriented x3 Limitations: No limitations Head: Normal to inspection Ears: Hearing grossly normal bilaterally, external ears normal and TM's normal bilaterally Nose: Normal external nose present, Normal nares present and No nasal discharge present Face and sinus: Normal facial exam and Sinuses tender Mouth: Normal oral and palatal mucosa present and moist mucous membranes Throat: Yes tonsils normal, Yes uvula midline. Posterior oropharynx erythema, no exudates Eyes: Appearance normal, both eyes and all related structures Neck: Normal visual inspection Respiratory: Clear to auscultation bilaterally. Normal respiratory effort, able to speak in complete sentences, Actively coughing, no respiratory distress, not tachypneic, no tripod positioning and no use of accessory muscles Cardiovascular: Regular rate and rhythm. Normal S1 and S2 Skin: No rashes or lesions noted Neuro: Patient oriented x3 Extremities: Normal to inspection and Yes no clubbing, cyanosis or edema PFSH Medical History (Updated 11/01/24 @ 09:04 by Adrienne Rojas PA-C) Hiatal hernia Schatzki's ring Arthritis Back pain Concussion HTN (hypertension) Hx of compression fracture of spine Atherosclerotic cardiovascular disease Myocardial infarction Nonalcoholic fatty liver Diverticulosis Surgical History (Updated 09/08/24 @ 09:59 by Angelica Lo MD) History of mandibular surgery History of esophagogastroduodenoscopy (EGD) H/O colonoscopy Hx of rotator cuff surgery Hx of cardiac catheterization S/P CABG (coronary artery bypass graft) Family History Mother Diabetes Melanoma Enlarged heart Father Cancer Heart attack Social History Housing: House Are you a primary emergency care attendant to a significant other at home: No Do you presently have visiting nurse or other home services: No Patient Tobacco Use Status: Never used Tobacco e-Cigarette/Vaping Use: Never Used service: Yes Current occupational status: employed Current occupational exposures/hazards: No Cognitive needs: No Hearing needs: No Vision needs: No Review of Systems Const All systems reviewed & are unremarkable except as noted in HPI and below Physical Exam Vital Signs: Last Vital Signs Temp 98.2 F 11/01/24 08:35 Pulse 71 11/01/24 08:35 BP 124/90 H 11/01/24 08:35 Pulse Ox 97 11/01/24 08:35 Oxygen Delivery Method Room Air 11/01/24 08:35 Assessment & Plan Assessment & Plan (1) Acute sinusitis: Code(s): J01.90 - Acute sinusitis, unspecified Qualifiers: Sinusitis location: unspecified location Recurrence: non-recurrent Qualified Code(s): J01.90 - Acute sinusitis, unspecified Plan: Initiate treatment with the antibiotic Augmentin, dosed twice daily with food to address possible bacterial infection including sinusitis. Advise the patient on the proper use of nasal spray angled towards the cheekbones for improved sinus delivery, despite a deviated septum. Suggest utilizing a humidifier during nighttime to alleviate throat dryness symptomatic of mouth breathing. Recommend consideration of nasal irrigation with a neti pot to assist in clearing nasal passages and reducing bacterial load. Medications: New amoxicillin-pot clavulanate 875-125 mg 1 tab PO Q12H 14 tabs 0RF Coding Level of Care Code Est Pt Level 3 (67371) Diagnoses Acute non-recurrent sinusitis, unspecified location J01.90 Sinusitis location: unspecified location Recurrence: non-recurrent
[2024-11-01 08:35] VITALS: BP 124/90; PULSE 71; TEMP 36.8; O2SAT 97
== END 2024-11-01 09:09 | disposition home or self-care (01) ==
PROVIDERS: PCP Internal Medicine; Visit Provider Physician Assistant
DX: J01.90 Acute sinusitis, unspecified (principal); Z13.9 Encounter for screening, unspecified

== ENCOUNTER → 2024-11-01 08:09 | Outpatient (BNVA) | payer MEDICARE, MEDICAID, SELFPAY | PROVIDERS: PCP Internal Medicine; Visit Provider Physician Assistant | DX: J01.90 Acute sinusitis, unspecified (principal) | CPT/HCPCS: 87880; 99212 ==

== ENCOUNTER 2024-11-03 08:04 | Outpatient (AMB) | payer MEDICARE, MEDICAID, SELFPAY ==
--- NOTE | 2024-11-03 08:08 | MHC.OFFWIV ---
Intake Vital Signs 11/03/24 08:10 Weight 176 lb BP 140/90 H Blood Pressure Location Rt brachial Position Sitting Pulse 71 Pulse Source Pulse Oximeter Pulse Oximetry (%) 98 Oxygen Delivery Method Room Air Intake Visit Reasons: EP muscle spams, pain RT leg, weakness Intake Note: Patient here for right leg pain which started yesterday out of nowhere and was unable to use his leg. Patient Tobacco Use Status: Never used Tobacco Allergies pollen extracts Allergy (Intermediate, Verified 11/03/24 08:10) Itching codeine [CODEINE] Allergy (Unknown, Verified 11/03/24 08:10) ITCHINESS Do you need a note to return to daycare/school/sports/work: No HPI EP muscle spams, pain RT leg, weakness HPI Details This note is constructed using voice recognition software. While every effort has been made to ensure accuracy, client services administrator errors may have been included. The patient is a 64 year old male who presents to the clinic today with muscle spasms from his chest down into his legs with right leg weakness. He notes he has had intermittent spasms in his body for the past several years, and feels that his provider team has never quite heard his concerns, or if thoroughly investigated for source. He reports typically he has spasms over his chest wall, or in his legs, and they go away without specific intervention. He has used muscle relaxers in the past. He has also been advised to hydrate better, which he is doing so. He has no specifically identifiable source of the spasms, but notes that when the muscles were spasming, he developed a sharp pain in the muscle. Two days ago his right leg spasms, fairly significantly where he could not control his leg. He attempted to walk around, and after about 5 minutes, the spasms stopped and he was able to walk around. He was concerned because after that it felt like his feet muscles were spasming. This also resolved without any intervention. He has had no numbness or tingling, no loss of consciousness, no specific head injury. He has had extensive cardiac issues, as well as spine issues, but the symptoms did not seem to appear directly after any of these conditions. [facility] Medical History (Updated 11/03/24 @ 08:40 by Zohra Gonzalez NP) Hiatal hernia Schatzki's ring Arthritis Back pain Concussion HTN (hypertension) Hx of compression fracture of spine Atherosclerotic cardiovascular disease Myocardial infarction Nonalcoholic fatty liver Diverticulosis Surgical History (Updated 09/08/24 @ 09:59 by Angelica Lo MD) History of mandibular surgery History of esophagogastroduodenoscopy (EGD) H/O colonoscopy Hx of rotator cuff surgery Hx of cardiac catheterization S/P CABG (coronary artery bypass graft) Family History Mother Diabetes Melanoma Enlarged heart Father Cancer Heart attack Social History Housing: House Are you a primary field care advocate to a significant other at home: No Do you presently have visiting nurse or other home services: No Patient Tobacco Use Status: Never used Tobacco e-Cigarette/Vaping Use: Never Used service: Yes Current occupational status: employed Current occupational exposures/hazards: No Cognitive needs: No Hearing needs: No Vision needs: No Review of Systems Const All systems reviewed & are unremarkable except as noted in HPI and below Physical Exam Vital Signs: Last Vital Signs Pulse 71 11/03/24 08:10 BP 140/90 H 11/03/24 08:10 Pulse Ox 98 11/03/24 08:10 Oxygen Delivery Method Room Air 11/03/24 08:10 Const General: cooperative, healthy appearing, comfortable, no acute distress and well developed Orientation/consciousness: patient oriented x3 Limitations: no limitations HEENT Head: Yes normal to inspection Ears: hearing grossly normal bilaterally General nose exam: Normal external nose present Face and sinus: Yes normal facial exam Eyes General: appearance normal, both eyes and all related structures Neck Neck: Yes normal visual inspection and Yes full ROM Resp Effort & Inspection: normal respiratory effort and able to speak in complete sentences Auscultation: clear to auscultation bilaterally Cardio Rate: regular rate Rhythm: regular rhythm Heart sounds: normal S1 and S2 Skin General skin exam: no rashes or lesions noted Neuro General: patient oriented x3 Cranial nerves: Yes CN's II-XII intact bilaterally Extrem General: Yes normal to inspection Assessment & Plan Assessment & Plan (1) Muscle spasm: Code(s): M62.838 - Other muscle spasm Plan: Longstanding history, etiology unclear. He will continue with hydration efforts, and we will try a NSAIDs for pain, in combination with muscle relaxers for symptomatic management. Advised follow up with PCP for further investigation into source of widespread muscle spasms going on for the past several years. Plan See above for full details and plan. Medications: New cyclobenzaprine 10 mg PO TID PRN 20 tabs 0RF muscle spasm Coding Level of Care Code Est Pt Level 4 (06616) Diagnoses Muscle spasm M62.838 Time Spent (min) 28
[2024-11-03 08:10] VITALS: BP 140/90; PULSE 71; O2SAT 98
== END 2024-11-03 09:41 | disposition home or self-care (01) ==
PROVIDERS: PCP Internal Medicine; Visit Provider Registered Nurse
DX: M62.838 Other muscle spasm (principal)

== ENCOUNTER → 2024-11-03 08:04 | Outpatient (BNVA) | payer MEDICARE, MEDICAID, SELFPAY | PROVIDERS: PCP Internal Medicine; Visit Provider Registered Nurse | DX: M62.838 Other muscle spasm (principal) | CPT/HCPCS: 99212 ==

== ENCOUNTER 2024-11-16 13:15 | Outpatient (REF) | payer MEDICARE, MEDICAID, SELFPAY ==
[2024-11-16 16:53] LABS: TSH reflex Free T4 2.65 uIU/mL (0.32-4.0); Vitamin D 25-OH Total 91.4 ng/mL (>30)
[2024-11-16 17:15] LABS: Erythrocyte Sedimentation Rate 5 MM/HR (0-15)
== END 2024-11-16 13:16 | disposition home or self-care (01) ==
LOC: HO.HMGCLDS 13:15
PROVIDERS: PCP Internal Medicine; Visit Provider Internal Medicine
DX: I10 Essential (primary) hypertension (principal); R73.9 Hyperglycemia, unspecified; M62.838 Other muscle spasm; R53.1 Weakness; Z79.899 Other long term (current) drug therapy
CPT/HCPCS: 36415; 82306; 82550; 84443; 85652; 99212

== ENCOUNTER 2024-11-16 13:15 | Outpatient (AMB) | payer MEDICARE, MEDICAID, SELFPAY ==
[2024-11-16 13:16] VITALS: BP 118/80; PULSE 79; O2SAT 94; BMI 27.9
--- NOTE | 2024-11-16 13:16 | MHC.PC.OV ---
Vital Signs 11/16/24 13:16 Height 5 ft 7 in Weight 178 lb BMI 27.9 BP 118/80 Blood Pressure Location Lt brachial Position Sitting Pulse 79 Pulse Source Pulse Oximeter Pulse Oximetry (%) 94 Oxygen Delivery Method Room Air Intake Visit Reasons: muscle spasms, weakness Intake Note: Pt is here today for a sick visit. Pt c/o constant muscle spasms and weakness. Allergies pollen extracts Allergy (Intermediate, Verified 11/16/24 13:30) Itching codeine [CODEINE] Allergy (Unknown, Verified 11/16/24 13:30) ITCHINESS Medication List - Last Reconciled 11/16/24 by Angelica Lo MD acetaminophen ER (Tylenol Arthritis Pain) 650 mg PO Q8H PRN aspirin (Adult Low Dose Aspirin) 81 mg PO BID atorvastatin 80 mg PO BEDTIME Breo Ellipta 100-25 mcg/dose (fluticasone furoate-vilanterol) 1 inh inhalation DAILY NS cholecalciferol (vitamin D3) 50 mcg PO DAILY cyclobenzaprine 10 mg PO TID PRN levalbuterol tartrate 45 mcg/actuation (Xopenex HFA) 2 puffs inhalation Q4-6H PRN lisinopril 20 mg PO DAILY loratadine 10 mg PO DAILY magnesium 250 mg PO DAILY metoprolol succinate ER 25 mg PO DAILY montelukast 10 mg PO BEDTIME nitroglycerin 0.4 mg sublingual Q5M PRN pantoprazole 40 mg PO DAILY Tobacco use date assessed: 11/16/24 Fall risk assessment: No Falls in past year Last assessed Fall Risk: 11/16/24 Dental Screening Dental Screen Date: 09/08/24 HPI muscle spasms, weakness HPI Details Pt presents for follow-up of hypertension hyperlipidemia chronic asthma stable on current medications. He complains of chronic intermittent muscle spasms involving all extremities and torso usually triggered by sustained activity for a few years. Patient tried increasing fluids intake, supplements like magnesium without significant change. He had cervical spine and lumbar spine injury a few years ago and sustained multiple levels vertebral fractures. Patient was evaluated by spine surgeon for C-spine surgery but it was postponed because of patient's of coronary artery disease and 90% stenosis. Patient has an appointment scheduled with [facility] for 2nd opinion. [facility] Medical History Hiatal hernia Schatzki's ring Arthritis Back pain Concussion HTN (hypertension) Hx of compression fracture of spine Atherosclerotic cardiovascular disease Myocardial infarction Nonalcoholic fatty liver Diverticulosis Surgical History History of mandibular surgery History of esophagogastroduodenoscopy (EGD) H/O colonoscopy Hx of rotator cuff surgery Hx of cardiac catheterization S/P CABG (coronary artery bypass graft) Family History Mother Diabetes Melanoma Enlarged heart Father Cancer Heart attack Social History Housing: House Are you a primary client care representative to a significant other at home: No Do you presently have visiting nurse or other home services: No Patient Tobacco Use Status: Never used Tobacco e-Cigarette/Vaping Use: Never Used service: Yes Current occupational status: employed Current occupational exposures/hazards: No Cognitive needs: No Hearing needs: No Vision needs: No Questionnaire Thrive Questionnaire Date Thrive assessed: 09/08/24 I am a: Patient What is your living situation today?: I have a steady place to live Within the past 12 months, did the food you bought not last and you didn't have the money to get more?: Often true Within the past 12 months, did you worry whether your food would run out before you got money to buy more?: Often true Do you have trouble paying for medicines?: No Do you have trouble getting transportation to medical appointments?: Yes Do you have trouble paying your heating and electricity bill?: Yes Do you have trouble taking care of your child, family member or friend?: No Do you have trouble with day-to-day activities such as bathing, preparing meals, shopping, managing finances, etc.?: No Are you currently unemployed and looking for a job?: No Are you interested in more education?: No Currently or been in a relationship where the following occur: No concerns reported THRIVE Score: 4 AUDIT C Alcohol Use Questionnaire (AUDIT-C) 2. How many drinks containing alcohol do you have on a typical day when you are drinking?: 1 or 2 3. How often do you have six or more drinks on one occasion?: Never Total Score: 0 IVONNE-7 AMB Questionnaire IVONNE-7 Date IVONNE - 7 assessed: 09/08/24 Source: Developed by DrsJarad Morales, Radha Jaquez, Bro Damian and colleagues, with an educational altaf from [employer]. Review of Systems Const All systems reviewed & are unremarkable except as noted in HPI and below ENT Reports no additional complaints Card Reports no additional complaints Resp Reports no additional complaints GI Reports no additional complaints Reports no additional complaints Physical exam (Primary Care) Vital Signs: Last Vital Signs Pulse 79 11/16/24 13:16 BP 118/80 11/16/24 13:16 Pulse Ox 94 11/16/24 13:16 Oxygen Delivery Method Room Air 11/16/24 13:16 BMI result Body Mass Index 27.9 Tobacco/Smoking Status: Tobacco use Status Tobacco use date assessed 11/16/24 11/16/24 13:32 Patient Tobacco Use Status Never used Tobacco 11/16/24 13:32 e-Cigarette/Vaping Use Never Used 11/16/24 13:16 Thrive Assessment: Date of Thrive Assessment Date Thrive assessed 09/08/24 11/16/24 13:16 Currently or been in a relationship where the following occur: No concerns reported Const General: no acute distress HENMT Head: Yes normal to inspection Ears: hearing grossly normal bilaterally Eyes General: appearance normal, both eyes and all related structures Neck Neck: Yes supple Resp Effort & Inspection: normal respiratory effort Auscultation: clear to auscultation bilaterally Cardio Rhythm: regular rhythm Heart sounds: S1 normal heart sound present and S2 normal heart sound present GI Inspection: Yes normal to inspection Neuro Cranial nerves: Yes CN's II-XII intact bilaterally Gait exam (Neuro): Normal gait present Motor exam (neuro): 5/5 motor strength present throughout and Pronator motor function not present Coordination: [id number] test normal Romberg Test: Negative Extrem General: Yes no clubbing, cyanosis or edema Coding Level of Care Code Est Pt Level 4 (26088) Diagnoses HTN (hypertension) I10 Hyperglycemia R73.9 Muscle spasm M62.838 Assessment & Plan Assessment & Plan (1) HTN (hypertension): Code(s): I10 - Essential (primary) hypertension Category: Medical Plan: Continue lisinopril and metoprolol (2) Hyperglycemia: Code(s): R73.9 - Hyperglycemia, unspecified Category: Medical Plan: Monitor A1c continue ADA diet and regular exercise (3) Muscle spasm: Comment: chronic, diffuse Code(s): M62.838 - Other muscle spasm Category: Medical Plan: For chronic persistent severe muscle spasms patient will be referred to Neurology. CPK will be checked Orders: Orders Erythrocyte Sedimentation Rate Today I10 - Essential (primary) hypertension, M62.838 - Other muscle spasm, R73.9 - Hyperglycemia, unspecified TSH reflex Free T4 Today I10 - Essential (primary) hypertension, M62.838 - Other muscle spasm, R73.9 - Hyperglycemia, unspecified Creatine Kinase Total Today I10 - Essential (primary) hypertension, M62.838 - Other muscle spasm, R73.9 - Hyperglycemia, unspecified Vitamin D 25-OH Total Today I10 - Essential (primary) hypertension, M62.838 - Other muscle spasm, R73.9 - Hyperglycemia, unspecified Referrals Neurology Referral M62.838 - Other muscle spasm
== END 2024-11-16 14:15 | disposition home or self-care (01) ==
PROVIDERS: PCP Internal Medicine; Visit Provider Internal Medicine
DX: I10 Essential (primary) hypertension (principal); R73.9 Hyperglycemia, unspecified; M62.838 Other muscle spasm

== ENCOUNTER 2025-01-11 11:07 | Outpatient (AMB) | payer MEDICARE, MEDICAID, SELFPAY ==
[2025-01-11 11:11] VITALS: BP 122/80; PULSE 78; RESP 18; TEMP 36.2; O2SAT 98; BMI 27.4
--- NOTE | 2025-01-11 11:11 | MHC.PC.OV ---
Vital Signs 01/11/25 11:11 Height 5 ft 7 in Weight 175 lb BMI 27.4 BP 122/80 Blood Pressure Location Lt brachial Position Sitting Respiration 18 Pulse 78 Pulse Source Pulse Oximeter Temp 97.2 F Temp Source Oral Pulse Oximetry (%) 98 Oxygen Delivery Method Room Air Intake Visit Reasons: 3 months follow up Intake Note: Pt is here today for 3 months follow up visit. Allergies pollen extracts Allergy (Intermediate, Verified 01/11/25 11:49) Itching codeine [CODEINE] Allergy (Unknown, Verified 01/11/25 11:49) ITCHINESS Medication List - Last Reconciled 01/11/25 by Angelica Lo MD acetaminophen ER (Tylenol Arthritis Pain) 650 mg PO Q8H PRN aspirin (Adult Low Dose Aspirin) 81 mg PO BID atorvastatin 80 mg PO BEDTIME betamethasone dipropionate 0.05% 1 appl topical BID PRN Breo Ellipta 100-25 mcg/dose (fluticasone furoate-vilanterol) 1 inh inhalation DAILY NS cholecalciferol (vitamin D3) 50 mcg PO DAILY cyclobenzaprine 10 mg PO TID PRN levalbuterol tartrate 45 mcg/actuation (Xopenex HFA) 2 puffs inhalation Q4-6H PRN lisinopril 20 mg PO DAILY loratadine 10 mg PO DAILY magnesium 250 mg PO DAILY mecobalamin (vitamin B12) PO metoprolol succinate ER 25 mg PO DAILY montelukast 10 mg PO BEDTIME nitroglycerin 0.4 mg sublingual Q5M PRN pantoprazole 40 mg PO DAILY Tobacco use date assessed: 01/11/25 Fall risk assessment: No Falls in past year Last assessed Fall Risk: 01/11/25 Dental Screening Dental Screen Date: 01/11/25 Did you have a dental visit in the last 12 months?: Yes Did you have a dental problem in the last 6 months where you did not have access to dental care?: No Was dental information given to patient?: Patient has dentist HPI 3 months follow up HPI Details Patient presents for the follow-up of hypertension hyperlipidemia COPD stable on current medications. He reports sinus pressure congestion greenish discharge and headaches for 1 week. Patient denies fever chills or cough PFSH Medical History Hiatal hernia Schatzki's ring Arthritis Back pain Concussion HTN (hypertension) Hx of compression fracture of spine Atherosclerotic cardiovascular disease Myocardial infarction Nonalcoholic fatty liver Diverticulosis Surgical History History of mandibular surgery History of esophagogastroduodenoscopy (EGD) H/O colonoscopy Hx of rotator cuff surgery Hx of cardiac catheterization S/P CABG (coronary artery bypass graft) Family History Mother Diabetes Melanoma Enlarged heart Father Cancer Heart attack Social History Housing: House Are you a primary youth career specialist to a significant other at home: No Do you presently have visiting nurse or other home services: No Patient Tobacco Use Status: Never used Tobacco e-Cigarette/Vaping Use: Never Used service: Yes Current occupational status: employed Current occupational exposures/hazards: No Cognitive needs: No Hearing needs: No Vision needs: No Questionnaire PHQ-9 Over the last 2 weeks, how often have you been bothered by any of the following problems? 1. Little interest or pleasure in doing things: several days 2. Feeling down, depressed, or hopeless: several days 3. Trouble falling or staying asleep, or sleeping too much: not at all 4. Feeling tired or having little energy: several days 5. Poor appetite or overeating: several days 6. Feeling bad about yourself - or that you are a failure or have let yourself or your family down: not at all 7. Trouble concentrating on things, such as reading the newspaper or watching television: not at all 8. Moving or speaking so slowly that other people could have noticed. Or the opposite - being so fidgety or restless that you have been moving around a lot more than usual: not at all 9. Thoughts that you would be better off or of hurting yourself in some way: not at all Total score: 4 Depression Screening Interpretation: Negative Depression Screening Done: Yes 44831 - PHQ-9 Billing: Yes Source: Developed by Drs. Satish Morales, Radha Jaquez, Bro Damian and colleagues, with an educational altaf from [email or web address] Thrive Questionnaire Date Thrive assessed: 01/11/25 I am a: Patient What is your living situation today?: I have a steady place to live Within the past 12 months, did the food you bought not last and you didn't have the money to get more?: Sometimes True Within the past 12 months, did you worry whether your food would run out before you got money to buy more?: Sometimes True Do you have trouble paying for medicines?: No Do you have trouble getting transportation to medical appointments?: No Do you have trouble paying your heating and electricity bill?: Yes Do you have trouble taking care of your child, family member or friend?: Yes Do you have trouble with day-to-day activities such as bathing, preparing meals, shopping, managing finances, etc.?: No Are you currently unemployed and looking for a job?: No Are you interested in more education?: No Please select the resources that you would like help with: Utilities Currently or been in a relationship where the following occur: No concerns reported THRIVE Score: 3 AUDIT C Alcohol Use Questionnaire (AUDIT-C) 1. How often do you have a drink containing alcohol?: Never 3. How often do you have six or more drinks on one occasion?: Never Total Score: 0 IVONNE-7 AMB Questionnaire IVONNE-7 Date IVONNE - 7 assessed: 01/11/25 Feeling nervous, anxious, or on edge: 1 = Several days Not being able to stop or control worryin = Several days Worrying too much about different things: 1 = Several days Trouble relaxin = Several days Being so restless that it is hard to sit still: 1 = Several days Becoming easily annoyed or irritable: 1 = Several days Feeling afraid as if something awful might happen: 1 = Several days Total IVONNE-7 score (0-4 normal; 5-9 mild; 10-14 moderate; 15-21 severe): 7 Source: Developed by Drs. Satish Morales, Radha Jaquez, Bro Damian and colleagues, with an educational altaf from [email or web address] IVONNE-7 Assessment Billing IVONNE-7 Assessment Tool: IVONNE-7 Assessment 83364 Review of Systems Const All systems reviewed & are unremarkable except as noted in HPI and below ENT Reports no additional complaints Card Reports no additional complaints Resp Reports no additional complaints GI Reports no additional complaints Reports no additional complaints Physical exam (Primary Care) Vital Signs: Last Vital Signs Temp 97.2 F 01/11/25 11:11 Pulse 78 01/11/25 11:11 Resp 18 01/11/25 11:11 BP 122/80 01/11/25 11:11 Pulse Ox 98 01/11/25 11:11 Oxygen Delivery Method Room Air 01/11/25 11:11 BMI result Body Mass Index 27.4 Tobacco/Smoking Status: Tobacco use Status Tobacco use date assessed 01/11/25 01/11/25 11:55 Patient Tobacco Use Status Never used Tobacco 01/11/25 11:11 e-Cigarette/Vaping Use Never Used 01/11/25 11:11 PHQ-9: PHQ-9 Score PHQ-9: Total score 4 01/11/25 11:55 Depression Screening Interpretation: Negative Thrive Assessment: Date of Thrive Assessment Date Thrive assessed 01/11/25 01/11/25 11:55 Currently or been in a relationship where the following occur: No concerns reported Const General: no acute distress HENMT Head: Yes normal to inspection Face and sinus: Yes sinus tenderness Throat: Yes postnasal drainage Eyes General: appearance normal, both eyes and all related structures Neck Neck: Yes no lymphadenopathy and Yes supple Resp Effort & Inspection: normal respiratory effort Auscultation: clear to auscultation bilaterally Cardio Rhythm: regular rhythm Heart sounds: S1 normal heart sound present and S2 normal heart sound present GI Inspection: Yes normal to inspection Coding Level of Care Code Est Pt Level 4 (81108) Diagnoses Hyperlipidemia E78.5 HTN (hypertension) I10 Hyperglycemia R73.9 Acute non-recurrent sinusitis, unspecified location J01.90 Sinusitis location: unspecified location Recurrence: non-recurrent Additional Codes IVONNE-7 Assessment Billing - IVONNE-7 Assessment Tool: IVONNE-7 Assessment 92506 ([id number]) PHQ-9 - 71882 - PHQ-9 Billing: Yes ([id number]) Assessment & Plan Assessment & Plan (1) Hyperlipidemia: Code(s): E78.5 - Hyperlipidemia, unspecified Category: Medical Plan: Continue statin (2) HTN (hypertension): Code(s): I10 - Essential (primary) hypertension Category: Medical Plan: Continue current medications (3) Hyperglycemia: Code(s): R73.9 - Hyperglycemia, unspecified Category: Medical Plan: A1c was 5.8, continue ADA diet regular exercise follow-up in 6 months with a fasting labs before (4) Acute sinusitis: Code(s): J01.90 - Acute sinusitis, unspecified Category: Medical Qualifiers: Sinusitis location: unspecified location Recurrence: non-recurrent Qualified Code(s): J01.90 - Acute sinusitis, unspecified Plan: Z-Vladimir as prescribed and supportive care discussed with the patient Orders: Orders Comprehensive [place]. Panel Fast 6 Months E78.5 - Hyperlipidemia, unspecified, I10 - Essential (primary) hypertension, R73.9 - Hyperglycemia, unspecified Complete Blood Count Auto Diff 6 Months E78.5 - Hyperlipidemia, unspecified, I10 - Essential (primary) hypertension, R73.9 - Hyperglycemia, unspecified PSA,Total (Free>4and<10) 6 Months E78.5 - Hyperlipidemia, unspecified, I10 - Essential (primary) hypertension, R73.9 - Hyperglycemia, unspecified Microalbumin, Random (w Creat) 6 Months E78.5 - Hyperlipidemia, unspecified, I10 - Essential (primary) hypertension, R73.9 - Hyperglycemia, unspecified Lipid Panel 6 Months E78.5 - Hyperlipidemia, unspecified, I10 - Essential (primary) hypertension, R73.9 - Hyperglycemia, unspecified Hemoglobin A1c 6 Months E78.5 - Hyperlipidemia, unspecified, I10 - Essential (primary) hypertension, R73.9 - Hyperglycemia, unspecified Medications: New lisinopril 20 mg PO DAILY 90 tabs 3RF azithromycin For 250 mg dose pack: take 500 mg today (day 1), then 250 mg for 4 days (days 2-5) PO 6 tabs 0RF Refilled cyclobenzaprine 10 mg PO TID PRN 20 tabs 0RF muscle spasm Breo Ellipta 100-25 mcg/dose (fluticasone furoate-vilanterol) 1 inh inhalation DAILY 60 ea 3RF NS
== END 2025-01-11 12:31 | disposition home or self-care (01) ==
PROVIDERS: PCP Internal Medicine; Visit Provider Internal Medicine
DX: E78.5 Hyperlipidemia, unspecified (principal); I10 Essential (primary) hypertension; R73.9 Hyperglycemia, unspecified; J01.90 Acute sinusitis, unspecified

== ENCOUNTER → 2025-01-11 11:07 | Outpatient (BNVA) | payer MEDICARE, MEDICAID, SELFPAY | PROVIDERS: PCP Internal Medicine; Visit Provider Internal Medicine | DX: E78.5 Hyperlipidemia, unspecified (principal); I10 Essential (primary) hypertension; R73.9 Hyperglycemia, unspecified; J01.90 Acute sinusitis, unspecified | CPT/HCPCS: 96127; 99212 ==

== ENCOUNTER 2025-02-08 08:37 | Outpatient (REF) | payer MEDICARE, MEDICAID, SELFPAY ==
--- OUTSIDE RECORDS SUMMARY | 2025-02-08 10:25 | XMS_ITS | Clinical Summary ---
Author Organization [facility] Address [address] [place] [address] Care Team Providers Care Emergency Services Professional Name Role Phone Amanda Bazan [facility] Primary Care Provider [phone] Source Comments PLEASE NOTE, if this patient [...] surgery on 11/03/18. CT neck performed in [place]. Unclear if chest CT performed. Referral placed [...] on file Insurance JULIETA MARTINEZ Care Teams Emergency Services Professional Relationship Specialty Start Date End Date Amanda Bazan FNP [address] [place] [id number] PCP - General Internal Medicine 08/17/19
[2025-02-08 15:31] LABS: Influenza A PCR NEGATIVE (Negative); Influenza B PCR NEGATIVE (Negative); Resp Syncy Virus RNA Qual PCR POSITIVE (Negative); SARS COV2 PCR INHOUSE NEGATIVE (Negative)
== END 2025-02-08 08:38 | disposition home or self-care (01) ==
LOC: HO.LAB 08:37
PROVIDERS: Physician Assistant; PCP Internal Medicine
DX: B34.9 Viral infection, unspecified (principal); R09.89 Other specified symptoms and signs involving the circulatory and respiratory systems; R05.8 Other specified cough
CPT/HCPCS: 0241U; 99212

== ENCOUNTER 2025-02-08 08:37 | Outpatient (AMB) | payer MEDICARE, MEDICAID, SELFPAY ==
--- NOTE | 2025-02-08 09:07 | AM.OFFWIN_ITS ---
Intake Vital Signs 02/08/25 09:10 Weight 178 lb BP 120/80 Blood Pressure Location Rt brachial Position Sitting Pulse 80 Pulse Source Pulse Oximeter Temp 97.7 F Temp Source Oral Pulse Oximetry (%) 97 Oxygen Delivery Method Room Air Intake Visit Reasons: EP Sinus, cough, sore throat Intake Note: Patient here for sinus pressure, cough, dry throat, green mucus that has been present for a couple of days. Patient Tobacco Use Status: Never used Tobacco Allergies pollen extracts Allergy (Intermediate, Verified 02/08/25 09:10) Itching codeine [CODEINE] Allergy (Unknown, Verified 02/08/25 09:10) ITCHINESS Do you need a note to return to daycare/school/sports/work: No HPI HPI Comments History of Present Illness Details History of Present Illness - The patient is a 64-year-old male pres enting with suspected Respiratory Syncytial Virus (RSV) infection x 3 days. - He reports chronic throat discomfort a nd dry mouth, ongoing over several months without significant progression in severity. - Long-standing issue with chronic sinus itis, with off-and-on infections reported since 1986, sinuses are bothering him today. - Wheezing and nighttime cough are repor khadijah following exposure to a family member with confirmed RSV. - He reports chronic use of allergy medi cations, Nyquil for the last few nights with some temp relief in symptoms - Denies fevers, ear pain or shortness o f breath. Physical Exam General: Cooperative, healthy appearing, comfortable, no acute distress and well developed Orientation: Patient oriented x3 Limitations: No limitations Head: Normal to inspection Ears: Hearing grossly normal bilaterally, TM's normal bilat, EAC's normal Nose: Normal external nose present Face and sinus: Normal facial exam, no pain on sinus palpation Mouth: moist mucus membranes, posterior oropharynx erythema, no exudates Eyes: Appearance normal, both eyes and all related structures Neck: Normal visual inspection and Yes full ROM Respiratory: Normal respiratory effort and able to speak in complete sentences. Cardiovascular: Regular rate and rhythm. Normal S1 and S2 Skin: No rashes or lesions noted Neuro: Patient oriented x3 Extremities: Normal to inspection [facility] Medical History Hiatal hernia Schatzki's ring Arthritis Back pain Concussion HTN (hypertension) Hx of compression fracture of spine Atherosclerotic cardiovascular disease Myocardial infarction Nonalcoholic fatty liver Diverticulosis Surgical History History of mandibular surgery History of esophagogastroduodenoscopy (EGD) H/O colonoscopy Hx of rotator cuff surgery Hx of cardiac catheterization S/P CABG (coronary artery bypass graft) Family History Mother Diabetes Melanoma Enlarged heart Father Cancer Heart attack Social History Housing: House Are you a primary pediatric critical care nurse to a significant other at home: No Do you presently have visiting nurse or other home services: No Patient Tobacco Use Status: Never used Tobacco e-Cigarette/Vaping Use: Never Used service: Yes Current occupational status: employed Current occupational exposures/hazards: No Cognitive needs: No Hearing needs: No Vision needs: No Review of Systems Const All systems reviewed & are unremarkable except as noted in HPI and below Physical Exam Vital Signs: Last Vital Signs Temp 97.7 F 02/08/25 09:10 Pulse 80 02/08/25 09:10 BP 120/80 02/08/25 09:10 Pulse Ox 97 02/08/25 09:10 Oxygen Delivery Method Room Air 02/08/25 09:10 Assessment & Plan Assessment & Plan (1) Acute viral syndrome: Code(s): B34.9 - Viral infection, unspecified Plan: VSS, pt well appearing and PE unremarkable. Sent Flu, Covid and RSV testing. The treatment plan for suspected RSV consists of supportive measures, including hydration and cough suppression with benzonatate as needed. Usage of a rescue inhaler every six hours is advised to manage respiratory symptoms. The patient will switch from Afrin to Flonase to manage chronic sinusitis, supplementing this with nasal rinsing using a neti pot. Aiming to alleviate throat discomfort, the use of humidifiers at night and throat lozenges is recommended. Patient was informed and verbally consented to the use of an ambient scribe for clinic note documentation during this visit. Orders: Orders SARS-CoV2/FLU/RSV Today R09.89 - Other specified symptoms and signs involving the circulatory and respiratory systems Medications: New benzonatate 200 mg PO BEDTIME PRN 10 caps 0RF cough albuterol sulfate 90 mcg/actuation 2 puffs inhalation Q6H PRN 8.5 grams 0RF shortness of breath or wheezing or cough Coding Level of Care Code Est Pt Level 3 (20889) Diagnoses Acute viral syndrome B34.9
[2025-02-08 09:10] VITALS: BP 120/80; PULSE 80; TEMP 36.5; O2SAT 97
--- OUTSIDE RECORDS SUMMARY | 2025-02-08 09:19 | XMS_ITS | Clinical Summary ---
Author Organization [facility] Address [address] [place] [address] Care Team Providers Care Clinical Nursing Professor Name Role Phone Amanda Bazan [facility] Primary Care Provider [phone] Source Comments PLEASE NOTE, if this patient is a minor, it may be UNLAWFUL to discuss sensitive information that is contained in these records (such as FAMILY PLANNING, MENTAL HEALTH or SUBSTANCE ABUSE) with the minor patient's parent or other person without the patient's specific authorization.[facility] Allergies Active Allergy Reactions Criticality Noted Date Comments Codeine Itching Low 02/22/2019 Medications clopidogrel (PLAVIX) 75 mg tablet Take 1 Tab by mouth once daily 9 Active aspirin [address] 1 Tab into mouth, chew and swallow once daily 9 Active tamsulosin (FLOMAX) 0.4 mg 24 hr capsuleIndications: Nocturia associated with benign prostatic hyperplasia Take 1 Cap by mouth once daily 30 Cap 2 9 Active metoprolol succinate (TOPROL-XL) 25 mg 24 hr tabletIndications:H istory of left heart catheterization Take 1 Tab by mouth once daily 90 Tab 1 9 Active diazePAM (VALIUM) 2 mg tabletIndications:M uscle spasms of neck Take 1 Tab by mouth nightly at bedtime as needed for other reason (muscle spasm) 12 Tab 9 Active raNITIdine HCl (ZANTAC) 150 mg capsuleIndications: Gastroesophageal reflux disease, esophagitis presence not specified Take 1 Cap by mouth 2 (two) times daily 60 Cap 2 9 Active loratadine (CLARITIN) 10 mg tabletIndications:E nvironmental allergies Take 1 Tab by mouth once daily as needed for allergies 30 Tab 3 9 Active lisinopriL 30 mg tabletIndications:E ssential hypertension Take 1 tablet by mouth once daily 30 Tab 0 Active atorvastatin (LIPITOR) 40 mg tablet Take 1 tablet by mouth once daily 30 Tab 0 Active Active Problems Problem Noted Date Diagnosed Date Prediabetes 07/16/2019 Mixed hyperlipidemia 07/16/[address] scan 02/24/2019 Overview (02/24/2019): Hx of C6-C7 radiculopathy s/p robotic left internal mammary to LAD in 11/17. Findings: There is reversal of cervical lordosis. The vertebral heights, alignment and disc heights are normal. There is no visible acute fracture, dislocation or subluxation seen. There is moderate right C3-C4, C4-C5 and C5-C6 facet joint arthropathy. No lytic or sclerotic process seen. There is bilateral apical parenchymal scarring or stelectasis. The prevertebral and paravertebral soft tissues are normal. Impression: No visible acute fracture, dislocation or subluxation. Left arm pain 02/24/2019 Overview (02/24/2019): Pain in left shoulder and arm that radiates to medial arm. Deep, burning pain nerve pain that waxes and wanes. Pain started after heart surgery on 11/03/18. CT neck performed in [place]. Unclear if chest CT performed. Referral placed to Ortho. History of echocardiogram 02/23/2019 Overview (02/23/2019): 10/05/2018 LV chamber size is normal LV wall thickness is mild to moderately increased There is a segmental wall motion abnormality The estimated LV ejection fraction is 45-50% (abnormal) There is anterior apical, septal apical hypokinesis. Essential hypertension 02/23/2019 History of left heart catheterization 02/23/2019 Overview (02/23/2019): Severe LAD disease. Immunizations Name Administration Dates Next Due INFLUENZA, SEASONAL, INJECTABLE 10/31/2016 INFLUENZA, SEASONAL, INJECTABLE, PRESERVATIVE FR EE 09/17/2017 Td (adult), 5 Lf tetanus toxoid, preservative fr ee 12/31/2012 Family History Medical History Relation Name Comments Diabetes Brother Cancer Father smoker Diabetes Mother Diabetes Sister Relation Name Status Comments Brother Father Mother Sister Social History Tobacco Use Types Packs/Day Years Used Date Smoking Tobacco: Never Smokeless Tobacco: Never Alcohol Use Standard Drinks/Week Comments Yes 0 (1 standard drink = 0.6 oz pur e alcohol) 1 month Social Connections Answer Date Recorded Social Connections and Isolation 0 07/19/2019 Financial Resource Strain Answer Date R ecorded Financial Resource Strain 0 2018 Stress Answer Date Recorded Stress 0 07/19/2019 Physical Activity Answer Date Recorded Physical Activity 0 07/19/2019 Food Insecurity Answer Date Recorded Food 0 07/19/2019 Transportation Needs Answer Date Record ed Transportation 0 07/19/2019 Housing Stability Answer Date Recorded Housing 0 07/19/2019 Safety and Environment Answer Date Kareem rded Safety 0 07/19/2019 Utilities Answer Date Recorded Utilities 0 07/19/2019 Employment Answer Date Recorded Employment 0 07/19/2019 Sex and Gender Information Value Date Recorded Sex Assigned at Male 02/22/2019 11:01 AM PDT Legal Sex Male 7:22 AM PDT Gender Identity Choose not to disclose 9 4:53 PM PDT Sexual Orientation Straight 02/22/2019 11 :01 AM PDT Last Filed Vital Signs Vital Sign Reading Time Taken Comments Blood Pressure 120/84 07/16/2019 2:43 PM EDT Pulse 90 07/16/2019 2:43 PM EDT Temperature 36.7 ??C (98 ??F) 07/16/2019 2:43 PM EDT Respiratory Rate 20 07/16/2019 2:43 PM EDT Oxygen Saturation - - Inhaled Oxygen Concentration - - Weight 83 kg (183 lb) 07/16/2019 2:43 PM EDT Height 172 cm (5' 7.72 ) 07/16/2019 2:43 PM EDT Body Mass Index 28.06 07/16/2019 2:43 PM EDT Plan of Treatment Not on file Insurance JULIETA MARTINEZ Care Teams Clinical Nursing Professor Relationship Specialty Start Date End Date Amanda Bazan FNP [address] [place] [id number] PCP - General Internal Medicine 08/17/19
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
== END 2025-02-08 09:48 | disposition home or self-care (01) ==
PROVIDERS: PCP Internal Medicine; Visit Provider Physician Assistant
DX: B34.9 Viral infection, unspecified (principal)